=== PATIENT | female | born 1955 | race Caucasian/White ===

== ENCOUNTER 2020-12-20 17:49 | Inpatient (IN) ==
--- NOTE | 2020-12-20 19:55 | Emergency Department Note ---
Impression & Plan Breath shortness, CHF (congestive heart failure), Pleural effusion ED Provider Note NAME: EDUAR BARNES AGE: 65 SEX: F : 1955 ARRIVES VIA: Walk-In INFORMANT: Patient ED PROVIDER(S): Zackary Welch DO CHIEF COMPLAINT: Shortness of breath HPI: Patient is a 65-year-old female status post CABG and aortic valve replacement which was performed on 11/29/2020 at [facility]. Patient was discharged on the . She notes her chest pain has been improving gradually. She is still sore. She admits to shortness of breath which has been getting significantly worse over the past 48 hours. She was seen by her PCP and referred over. Prior to the surgery she had severe aortic stenosis with multivessel CAD, mild LVH, hypertension, lipidemia, type 2 diabetes on insulin and moderate mitral regurg as well as depression hypothyroidism and GERD. Shortness of breath is worsened with up and moving around. It does improve with rest. ROS: See above HPI for pertinent positives & negatives. A total of 10 systems reviewed and were otherwise negative. PAST MEDICAL HISTORY:See Below PAST SURGICAL HISTORY:See Below FAMILY HISTORY:See Below SOCIAL HISTORY:See Below HOME MEDICATIONS:See Below ALLERGIES:See Below VITALS:See Below PHYSICAL EXAMINATION: GENERAL: Sitting up in bed, alert, chronically ill-appearing, dyspneic with conversation EYE EXAM: normal conjunctiva. OROPHARYNX: no exudate, no erythema, lips, buccal mucosa, and tongue normal and mucous membranes are moist NECK: supple, no nuchal rigidity, no adenopathy, non-tender LUNGS: Diminished at the bases. Normal chest wall mechanics HEART: S1 normal and S2 normal ABDOMEN: abdomen soft, non-tender, normo-active bowel sounds, no masses, no rebound or guarding. BACK: Back is symmetrical on inspection and there is no deformity, no midline tenderness, no CVA tenderness. SKIN: no rashes and no bruising UPPER EXTREMITIES: upper extremities are grossly normal. LOWER EXTREMITIES: No pitting edema. NEURO EXAM: Normal sensorium, cranial nerves II-XII grossly intact, normal speech, no gross weakness of arms, no gross weakness of legs. MEDICAL DECISION MAKING: Patient is a 65-year-old female who presents the ER status post aortic valve replacement, CABG x3, ASD closure who presents the ER for shortness of breath for the past 48 hours. IV was established blood work was obtained. Labs show no significant leukocytosis or and mild anemia 10.3. The significant from previous labs at case here which were in the eights. BMP with LFTs bilirubin was unremarkable. Glucose slightly elevated. Lipase was normal. Covid was negative. CT of the chest shows bilateral pleural effusions. Case was discussed with Dr. Osorio from cardiology who agrees with admission and likely diuresis. Discussed with the hospitalist for further evaluation. Patient was g iven a dose of Lasix while in the ER. She was updated bedside. Discussed with the hospitalist admitted for further work-up. Triage Nursing notes reviewed. Limited review of prior medical records performed Vital Signs: reviewed and remarkable for hypertension Differential diagnosis: Differential diagnoses includes but is not limited to pneumonia, bronchitis, COPD/Asthma exacerbation, pneumothorax, pulmonary embolism, congestive heart failure, acute coronary syndrome ER treatment provided: See below Diagnostics interpreted by me: ECG: Sinus rhythm at 86 T wave version in the inferior leads T wave inversion in lateral leads ST depressions in the high lateral leads QTC 445 Cardiac Monitoring: An order was placed for continuous cardiac monitoring. The monitor shows a rate of 80 with sinus rhythm. Laboratory studies: As stated above and show below. Imaging studies: CT angio of the chest shows bilateral pleural effusions Consultation(s): Discussed with Dr. Ozzie Funk from cardiology and agrees with admission and diuresis Discussed with Dr. Srini Moseley for further evaluation Procedures: none Critical Care: None Past Med/Surg History Medical History Abdominal aortic aneurysm Acid reflux Acne Anemia CAD (coronary artery disease) (11/29/20) Depression Fatty liver GERD without esophagitis Heart murmur Hypercholesterolemia Hypertension Hypothyroidism (acquired) Mitral valve annular calcification Moderate mitral regurgitation Severe calcific aortic valve stenosis Type 2 diabetes mellitus Vitamin deficiency Surgical History Aortic valve replaced (11/29/20) Endometriosis H/O tubal ligation S/P CABG x 3 Status post device closure of ASD (11/29/20) Status post hernia repair Family History Father Stomach cancer Daughter Diabetes Heart disease Hypertension Mother Diabetes Sister No problems noted. Son Heart disease Hypertension Grandfather Myocardial infarction Denies family history of Ovarian cancer Prostate cancer Breast cancer Colorectal cancer Social History Smoking Status: Never smoker Second Hand Exposure: No; Hx Alcohol Use: No Hx Substance Use: No Preferred Language: Slovenian Hearing Ability: Normal Gas Cutter Required: No Beliefs That Will Affect Care: None marital status: Current Living Situation: Spouse and Family current occupational status: unemployed current occupation: homemaker How many Children do You have: 5 Feels Safe at Home: Yes Childhood Exposure to Second-Hand Smoke: Yes caffeine: No during the past year weight has: remained stable Dental Care, Regularly: No Physical Activity Frequency: Does not Exercise Seatbelt Use: sometimes Sunscreen Use: Yes (sometimes) Assistive Devices: None Allergies Allergies Allergy/AdvReac Type Severity Reaction Status Date / Time Tetanus Vaccines and Toxoid Allergy Mild ARM Verified 12/20/20 10:21 SWELLING-HOT TO TOUCH Home Meds Home Medications Medication Instructions Recorded Confirmed venlafaxine 150 mg 150 mg PO DAILY 06/02/20 12/20/20 capsule,extended release 24 hr insulin glargine 100 unit/mL (3 16 unit SUBCUT DAILY 11/03/20 12/20/20 mL) subcutaneous pen (Basaglar KwguillermoPen U-100 Insulin) metformin 500 mg tablet 500 mg PO DAILY 11/03/20 12/20/20 venlafaxine 37.5 mg DAILY 11/03/20 12/20/20 famotidine 20 mg tablet 20 mg PO DAILY 12/20/20 12/20/20 furosemide 40 mg tablet 40 mg PO DAILY 12/20/20 12/20/20 potassium chloride 10 mEq 10 meq PO BID 12/20/20 12/20/20 tablet,extended release Previous Rx's Medication Instructions Recorded pen needle, diabetic 32 gauge x #100 ea 06/09/2032" (BD Ultra-Fine Ruth Pen Needle) aspirin 81 mg tablet,delayed 81 mg PO DAILY #90 tab 09/13/20 release levothyroxine 25 mcg tablet 25 mcg PO DAILY #30 tab 09/16/20 atorvastatin 20 mg tablet 20 mg PO QPM #90 tab 12/09/20 cephalexin 500 mg capsule 500 mg PO BID 5 Days #10 cap 12/20/20 Results & Data (ED) Vital Signs Vital Signs - 24 hr 12/20/20 17:51 12/20/20 19:15 12/20/20 19:20 Temperature 36.9 C Temperature Source Temporal Artery Scan Pulse Rate 90 85 Pulse Rate [Apical] Respiratory Rate 20 24 Respiratory Effort / Characteristics Non-Labored Spontaneous Respiratory Depth Normal Blood Pressure 145/64 H Blood Pressure [Left Arm] Blood Pressure Mean 91 Blood Pressure Mean [Left Arm] Blood Pressure Position Sitting Pulse Oximetry 92 92 90 Oxygen Delivery Method Room Air Room Air Room Air Oxygen Flow Rate Sepsis Recent Fever Within 48 Hours No Sepsis New/Unexplained Change in Mental Status N/A Sepsis Action Taken by Nursing No Action Required 12/20/20 19:21 12/20/20 20:00 12/20/20 20:30 Temperature Temperature Source Pulse Rate 84 81 Pulse Rate [Apical] 83 Respiratory Rate 24 24 Respiratory Effort / Characteristics Respiratory Depth Blood Pressure 144/84 H 136/81 Blood Pressure [Left Arm] 146/78 H Blood Pressure Mean 104 99 Blood Pressure Mean [Left Arm] 100 Blood Pressure Position Pulse Oximetry 90 98 98 Oxygen Delivery Method Room Air Nasal Cannula Oxygen Flow Rate 2 2 Sepsis Recent Fever Within 48 Hours Sepsis New/Unexplained Change in Mental Status Sepsis Action Taken by Nursing 12/20/20 21:00 Temperature Temperature Source Pulse Rate 82 Pulse Rate [Apical] Respiratory Rate 24 Respiratory Effort / Characteristics Respiratory Depth Blood Pressure 120/67 Blood Pressure [Left Arm] Blood Pressure Mean 84 Blood Pressure Mean [Left Arm] Blood Pressure Position Pulse Oximetry 97 Oxygen Delivery Method Nasal Cannula Oxygen Flow Rate 2 Sepsis Recent Fever Within 48 Hours Sepsis New/Unexplained Change in Mental Status Sepsis Action Taken by Nursing Laboratory Data Result diagrams: 12/20/20 19:30 12/20/20 21:05 Lab Results 12/20/20 12/20/20 12/20/20 Range/Units 19:30 19:30 19:30 WBC 6.30 (4.8-10.8) K/uL RBC 3.60 L (4.2-5.4) M/uL Hgb 10.3 L (12.0-16.0) g/dL Hct 33.2 L (37-47) % MCV 92.2 (80-100) fL MCH 28.6 (25-34) pg MCHC 31.0 L (32-36) g/dL RDW Std Deviation 50.8 H (36.4-46.3) fL RDW Coeff of [place] 14.9 H (11.5-14.5) % Plt Count 248 (130-400) K/uL MPV 10.2 (7.4-10.4) fL Immature Gran % (Auto) 0.2 % Neut % (Auto) 66.9 % Lymph % (Auto) 16.7 % [place] % (Auto) 12.2 % Eos % (Auto) 3.2 % Baso % (Auto) 0.8 % Neut # (Auto) 4.22 (1.4-6.5) K/uL Lymph # (Auto) 1.05 L (1.2-3.4) K/uL [place] # (Auto) 0.77 H (0.11-0.59) K/uL Eos # (Auto) 0.20 (0-0.5) K/uL Baso # (Auto) 0.05 (0-0.2) K/uL Immature Gran # (Auto) 0.01 (0.00-0.02) K/uL APTT 25.2 (21.0-31.0) Seconds PTT Ratio 1.0 Sodium 139 (136-145) mmol/L Potassium (3.5-5.1) mmol/L Chloride 105 (98-107) mmol/L Carbon Dioxide 26 (21-32) mmol/L Anion Gap 8.0 (3-11) BUN 13 (7-18) mg/dl Creatinine 0.65 (0.6-1.2) mg/dl Est Cr Clr Drug Dosing 79.5 ml/min Est GFR ( Amer) 108.0 ml/min Est GFR (Non-Af Amer) 93.2 ml/min BUN/Creatinine Ratio 20.0 (10-20) Glucose 166 H (70-99) mg/dl Calcium 8.7 (8.5-10.1) mg/dl Total Bilirubin 0.5 (0.2-1) mg/dl AST (15-37) U/L ALT 19 (12-78) U/L Alkaline Phosphatase 186 H (45-117) U/L Troponin I < 0.015 (0-0.045) ng/ml Total Protein 7.8 (6.4-8.2) gm/dl Albumin 2.9 L (3.4-5.0) gm/dl Globulin 4.9 H (2.5-4.0) gm/dl Albumin/Globulin Ratio 0.6 L (0.9-2) Lipase 111 (73-393) U/L COVID-19 Eval Order SARS-CoV-2 (PCR) (Negative) 12/20/20 12/20/20 12/20/20 Range/Units 19:38 19:38 21:05 WBC (4.8-10.8) K/uL RBC (4.2-5.4) M/uL Hgb (12.0-16.0) g/dL Hct (37-47) % MCV (80-100) fL MCH (25-34) pg MCHC (32-36) g/dL RDW Std Deviation (36.4-46.3) fL RDW Coeff of [place] (11.5-14.5) % Plt Count (130-400) K/uL MPV (7.4-10.4) fL Immature Gran % (Auto) % Neut % (Auto) % Lymph % (Auto) % [place] % (Auto) % Eos % (Auto) % Baso % (Auto) % Neut # (Auto) (1.4-6.5) K/uL Lymph # (Auto) (1.2-3.4) K/uL [place] # (Auto) (0.11-0.59) K/uL Eos # (Auto) (0-0.5) K/uL Baso # (Auto) (0-0.2) K/uL Immature Gran # (Auto) (0.00-0.02) K/uL APTT (21.0-31.0) Seconds PTT Ratio Sodium (136-145) mmol/L Potassium 4.0 (3.5-5.1) mmol/L Chloride (98-107) mmol/L Carbon Dioxide (21-32) mmol/L Anion Gap (3-11) BUN (7-18) mg/dl Creatinine (0.6-1.2) mg/dl Est Cr Clr Drug Dosing ml/min Est GFR ( Amer) ml/min Est GFR (Non-Af Amer) ml/min BUN/Creatinine Ratio (10-20) Glucose (70-99) mg/dl Calcium (8.5-10.1) mg/dl Total Bilirubin (0.2-1) mg/dl AST (15-37) U/L ALT (12-78) U/L Alkaline Phosphatase (45-117) U/L Troponin I (0-0.045) ng/ml Total Protein (6.4-8.2) gm/dl Albumin (3.4-5.0) gm/dl Globulin (2.5-4.0) gm/dl Albumin/Globulin Ratio (0.9-2) Lipase (73-393) U/L COVID-19 Eval Order Covid19 at [facility] SARS-CoV-2 (PCR) NEGATIVE (Negative) Administered Medications Discontinued Medications Ioversol (Optiray 320 125ml) 118 ml IV ONCE ONE Stop: 12/20/20 21:05 Last Admin: 12/20/20 21:04 Dose: 118 ml Documented by: [id number] Imaging Data Radiologist's Impression: Chest X-Ray 12/20/20 19:21 XR chest 1V portable CLINICAL HISTORY: Chest Pain COMPARISON STUDY: No previous studies for comparison. FINDINGS: There is no pneumothorax. There are small bilateral pleural effusions. Cardiomegaly is noted. There is no evidence for overt pulmonary edema. Possible left basilar opacity is noted. There are median sternotomy wires and mediastinal surgical clips. IMPRESSION: 1. Cardiomegaly. No evidence for overt pulmonary edema. 2. Small bilateral pleural effusions with possible left basilar opacity. ACT 112: Negative or not required by law. Electronically signed by: Kali Wang M.D. 12/20/2020 8:20 PM Discharge Plan Visit Data Chief Complaint: Cardiac Assessment Stated Complaint: CARDIAC ASSESSMENT ED Provider: Zackary Welch Discharge Problem: Breath shortness, CHF (congestive heart failure), Pleural effusion Forms Stand Alone Forms: My [facility] [employer] Prescriptions Prescriptions: No Action (DME) pen needle, diabetic [BD Ultra-Fine Ruth Pen Needle] 32 gauge x 5/32" needle See Rx Instructions .ROUTE .MEDSUPPLY Qty: 100 RF: 3 aspirin 81 mg tablet,delayed release (DR/EC) 81 mg PO DAILY Qty: 90 RF: 2 levothyroxine 25 mcg tablet 25 mcg PO DAILY Qty: 30 RF: 2 atorvastatin 20 mg tablet 20 mg PO QPM Qty: 90 RF: 2 venlafaxine 150 mg capsule,extended release 24hr 150 mg PO DAILY RF: 0 famotidine 20 mg tablet 20 mg PO DAILY RF: 0 furosemide 40 mg tablet 40 mg PO DAILY RF: 0 potassium chloride 10 mEq tablet extended release 10 meq PO BID RF: 0 cephalexin 500 mg capsule 500 mg PO BID 5 Days Qty: 10 RF: 0 metformin 500 mg Tablet 500 mg PO DAILY RF: 0 Basaglar KwikPen U-100 Insulin 100 unit/mL (3 mL) Insulin Pen 16 unit SUBCUT DAILY RF: 0 venlafaxine 37.5 mg 37.5 mg DAILY RF: 0 Referrals Referrals: Cirilo Page CRNP [Primary Care Provider] - Discharge Problem: CHF (congestive heart failure) Qualifiers: Heart failure type: unspecified Heart failure chronicity: unspecified Qualified Code(s): I50.9 - Heart failure, unspecified
[2020-12-20 20:10] LABS: Partial Thromboplastin Time 25.2 Seconds (21.0-31.0)
--- NOTE | 2020-12-20 20:22 | XRay Report ---
XR chest 1V portable CLINICAL HISTORY: Chest Pain COMPARISON STUDY: No previous studies for comparison. FINDINGS: There is no pneumothorax. There are small bilateral pleural effusions. Cardiomegaly is note d. There is no evidence for overt pulmonary edema. Possible left basilar opacity is noted. There are median sternotomy wires and mediastinal surgical clips. IMPRESSION: 1. Cardiomegaly. No evidence for overt pulmonary edema. 2. Small bilateral pleural effusions with possible left basilar opacity. ACT 112: Negative or not required by law. Electronically signed by: Kali Wang M.D. 12/20/2020 8:20 PM
[2020-12-20 20:26] LABS: Basophils # (auto) 0.05 K/uL (0-0.2); Basophils % (auto) 0.8 %; Eosinophils % (auto) 3.2 %; Hematocrit (blood only) 33.2 % (37-47); Hemoglobin 10.3 g/dL (12.0-16.0); Immature Granulocytes # (auto) 0.01 K/uL (0.00-0.02); Immature Granulocytes % (auto) 0.2 %; Lymphocytes # (auto) 1.05 K/uL (1.2-3.4); Lymphocytes % (auto) 16.7 %; Mean Corpuscular Hemoglobin 28.6 pg (25-34); Mean Corpuscular Volume 92.2 fL (80-100); Mean Platelet Volume 10.2 fL (7.4-10.4); Monocytes # (auto) 0.77 K/uL (0.11-0.59); Monocytes % (auto) 12.2 %; Neutrophils # (auto) 4.22 K/uL (1.4-6.5); Neutrophils % (auto) 66.9 %; Platelet Count 248 K/uL (130-400); RDW Coefficient of Variation 14.9 % (11.5-14.5); RDW Standard Deviation 50.8 fL (36.4-46.3)
[2020-12-20 20:55] LABS: Alanine Aminotransferase 19 U/L (12-78); Albumin Globulin Ratio 0.6 (0.9-2); Albumin Level 2.9 gm/dl (3.4-5.0); Alkaline Phosphatase 186 U/L (45-117); Bilirubin,Total 0.5 mg/dl (0.2-1); Blood Urea Nitrogen 13 mg/dl (7-18); Calcium 8.7 mg/dl (8.5-10.1); Carbon Dioxide 26 mmol/L (21-32); Chloride 105 mmol/L (98-107); Creatinine Clr Calc Pharmacy 79.5 ml/min; Est GFR (Non-African American) 93.2 ml/min; Globulin 4.9 gm/dl (2.5-4.0); Glucose 166 mg/dl (70-99); Lipase 111 U/L (73-393); Sodium 139 mmol/L (136-145); Total Protein 7.8 gm/dl (6.4-8.2); Troponin I < 0.015 ng/ml (0-0.045)
[2020-12-20] MEDS ORDERED: OPTIRAY 320 125ml IV ONE (21:04)
[2020-12-20] MEDS ORDERED: FUROSEMIDE 40 MG/4 ML VIAL IV STA (22:16)
--- NOTE | 2020-12-20 22:32 | History & Physical Report ---
Date of Service December 20, 2020 Assessment & Plan (1) CHF (congestive heart failure): Plan: Patient is a pleasant 65 year old female with PMHx CHF, GERD, CAD, HLD, Asthma, Depression, Hypertension, Hypothyroidism, DM2, that presents with chief complaint of shortness of breath. Patient was seen earlier in the day by her PCP who had recommended patient go to the ED for treatment of CHF exacerbation noted on CXR, physical exam, and elevated BNP. Patient's history of complicated by recent CABG x3 (MOREL-LAD, Ao-PDA, Ao-OM with reversed saphenous vein), Aortic valve replacement with 21mm Inspiris bioprosthetic valve and closure of PFO type ASD on 11/29/20. CHF exacerbation -Last echo on 11/29/20 with EF 60-64%, HFpEF -Outpatient BNP elevated at 1580 -CXR with b/l pleural effusions, CTA showing pulmonary edema without clot or concern for PE -Of note a nondisplaced fx of the 1st rib on the L -Given 40mg IV lasix in ED -Will continue IV lasix 40mg QD -Daily weights -I/O's -Low Na diet, 2000ml fluid restriction -Repeat Echo in AM Cellulitis of Incision site L leg -Erythema and purulent drainage of incision site on the L leg medial to the patella -Started on Keflex outpatient, will transition to CTX IV as patient received initial incision in hospital -Will wound culture for MRSA - if positive will need to increase coverage CAD -Continue home ASA -Continue home Lipitor -S/P CABG x3 11/29/20 at [facility] GERD -Continue home Pepcid Hypothyroidism -Continue home Levothyroxine Depression -Continue home Venlafaxine DM2 -SSI and basal bolus Dispo: Med/Surg telemetry for monitoring and diuresis FEN: HH, Low salt diet, 2000ml fluid restriction DVT: SCDs Code: DNR/DNI History of Present Illness Chief Complaint: Shortness of breath Primary Care Provider: PRABHA Ramirez Patient is a pleasant 65 year old female with PMHx CHF, GERD, CAD, HLD, Asthma, Depression, Hypertension, Hypothyroidism, DM2, that presents with chief complaint of shortness of breath. Patient was seen earlier in the day by her PCP who had recommended patient go to the ED for treatment of CHF exacerbation noted on CXR, physical exam, and elevated BNP. Patient's history of complicated by recent CABG x3 (MOREL-LAD, Ao-PDA, Ao-OM with reversed saphenous vein), Aortic valve replacement with 21mm Inspiris bioprosthetic valve and closure of PFO type ASD on 11/29/20. Patient notes that since her discharge after her CABG she has felt less short of breath since prior, though still notes significant symptoms of dyspnea on exertion. She had seen her PCP earlier this morning for a regular hospital follow up and had crackles noted on her lung exam prompting a further work up for patient's suspected CHF exacerbation. She notes that she has been taking her lasix as prescribed and that she has had no changes in her diet. She does not necessarily track her sodium intake, but does not feel it is too much. She does note that she feels more SOB when laying flat. She also notes that she was started on Keflex for the redness on her L leg where the saphenous vein was harvested. She notes that at rest she feels fine and not SOB. She denies any chest pain, chest pressure, abdominal pain, nausea, vomiting, diarrhea. She has not had her COVID-19 vaccination. Med Hx: CHF, GERD, CAD, HLD, Asthma, Depression, Hypertension, Hypothyroidism, DM2 Surg Hx: CABG x3 (MOREL-LAD, Ao-PDA, Ao-OM with reversed saphenous vein), Aortic valve replacement with 21mm Inspiris bioprosthetic valve, closure of PFO type ASD Soc Hx: No tobacco, alcohol, illicit drug use Allergies Allergy/AdvReac Type Severity Reaction Status Date / Time Tetanus Vaccines and Toxoid Allergy Mild ARM Verified 12/20/20 10:21 SWELLING-HOT TO TOUCH Home Medications Medication Instructions Recorded Confirmed Type venlafaxine 150 mg 150 mg PO DAILY 06/02/20 12/20/20 History capsule,extended release 24 hr pen needle, diabetic 32 gauge x #100 ea 06/09/20 12/20/20 Rx " (BD Ultra-Fine Ruth Pen Needle) aspirin 81 mg tablet,delayed 81 mg PO DAILY #90 tab 09/13/20 12/20/20 Rx release levothyroxine 25 mcg tablet 25 mcg PO DAILY #30 tab 09/16/20 12/20/20 Rx insulin glargine 100 unit/mL (3 16 unit SUBCUT DAILY 11/03/20 12/20/20 History mL) subcutaneous pen (Basaglar AlysonPen U-100 Insulin) metformin 500 mg tablet 500 mg PO DAILY 11/03/20 12/20/20 History venlafaxine 37.5 mg DAILY 11/03/20 12/20/20 History atorvastatin 20 mg tablet 20 mg PO QPM #90 tab 12/09/20 12/20/20 Rx cephalexin 500 mg capsule 500 mg PO BID 5 Days #10 cap 12/20/20 12/20/20 Rx famotidine 20 mg tablet 20 mg PO DAILY 12/20/20 12/20/20 History furosemide 40 mg tablet 40 mg PO DAILY 12/20/20 12/20/20 History potassium chloride 10 mEq 10 meq PO BID 12/20/20 12/20/20 History tablet,extended release Past Med/Surg History Medical History Abdominal aortic aneurysm Acid reflux Acne Anemia CAD (coronary artery disease) (11/29/20) Depression Fatty liver GERD without esophagitis Heart murmur Hypercholesterolemia Hypertension Hypothyroidism (acquired) Mitral valve annular calcification Moderate mitral regurgitation Severe calcific aortic valve stenosis Type 2 diabetes mellitus Vitamin deficiency Surgical History Aortic valve replaced (11/29/20) Endometriosis H/O tubal ligation S/P CABG x 3 Status post device closure of ASD (11/29/20) Status post hernia repair Family History Father Stomach cancer Daughter Diabetes Heart disease Hypertension Mother Diabetes Sister No problems noted. Son Heart disease Hypertension Grandfather Myocardial infarction Denies family history of Ovarian cancer Prostate cancer Breast cancer Colorectal cancer Social History Smoking Status: Never smoker Second Hand Exposure: No; Do You Dip or Chew Tobacco: No; Hx Alcohol Use: No Hx Substance Use: No Preferred Language: Greenlandic Communication Ability: Effective Hearing Ability: Normal Label Remover Required: No Beliefs That Will Affect Care: None marital status: Current Living Situation: Spouse current occupational status: unemployed current occupation: homemaker How many Children do You have: 5 Feels Safe at Home: Yes Childhood Exposure to Second-Hand Smoke: Yes caffeine: No during the past year weight has: remained stable Dental Care, Regularly: No Physical Activity Frequency: Does not Exercise Seatbelt Use: sometimes Sunscreen Use: Yes (sometimes) Assistive Devices: Oxygen - Continuous Review of Systems Review of Systems: ROS as noted in history Physical Exam Constitutional: well developed and well nourished; not in distress Eyes: PERRL, conjunctivae normal, anicteric sclerae ENMT: external ear and nose normal, oropharynx normal Neck: trachea midline, no thyromegaly Respiratory: normal respiratory effort and able to speak in complete sentences; no respiratory distress, no labored breathing and no audible wheezes Auscultation: + diminished lung sounds and + crackles ( bilateral lower lobes) Cardiovascular: Rate/Rhythm: regular rate and regular rhythm Heart Sounds: normal S1 and normal S2; no murmur Extremities: + edema (+1 edema to the mid rooney ) Gastrointestinal (Abdomen): normal bowel sounds, soft, nontender, no hepatosplenomegaly Musculoskeletal: no cyanosis or clubbing, extremities motor strength 5/5 Skin: no rashes, warm and dry + incision ( vertical chest -clean dry intact. LLE with surrounding erythema) Neurologic: PERRL, EOMI, accommodation nl, no face palsy, no dysarthria Psychiatric: A+Ox3, euthymic affect Apperance: appeared stated age Results & Data Results & Data ([facility] [place]) Vital Signs (Past 12 Hours) Vital Signs Temp Pulse Pulse Resp BP BP Pulse Ox 12/20/20 21:00 82 24 120/67 97 12/20/20 20:30 81 24 136/81 98 12/20/20 20:00 84 24 144/84 H 98 12/20/20 19:21 83 146/78 H 90 12/20/20 19:20 90 12/20/20 19:15 85 24 92 12/20/20 17:51 36.9 C 90 20 145/64 H 92 Code Status & VTE Plan Code Status DNR/DNI Supervising Physician Co-Signing Physician Notes Attending addendum: I have physically seen this patient, have supervised the medical residents activities, and agree with the H&P unless as otherwise noted. Assessment and Plan: CHF exacerbation/CAD/hypertension/recent CABG x3 and bioprosthetic AVR- The patient will be admitted to telemetry for serial cardiac enzymes, serial EKG's, cardiac rhythm monitoring and a 2-D echocardiogram with Dopplers. Given Lasix 40 mg IV in ED Lasix 40 mg IV every morning Follow serial BMP and magnesium levels Continue aspirin Noted by cardiothoracic at [place] of admission Cellulitis of left lower extremity incision site Stop Keflex Placed on ceftriaxone 1 g IV and vancomycin IV Remaining orders and notations as noted Resident Activity Tracking Resident Involvement: Resident Care Provided Care Provided: Adult Hospital Medicine (1) CHF (congestive heart failure) Heart failure chronicity: unspecified Heart failure type: unspecified Qualified Code(s): I50.9 - Heart failure, unspecified
[2020-12-21] MEDS ORDERED: CARBOHYDRATES FOR HYPOGLYCEMIA PO PRN (00:21)
[2020-12-21] MEDS ORDERED: GLUCOSE 40% GEL 15 GM TUBE PO PRN (00:21)
[2020-12-21] MEDS ORDERED: GLUCOSE 10 TABS/TUBE PO PRN (00:21)
[2020-12-21] MEDS ORDERED: DEXTROSE 50% 50 ML SYRINGE IV PRN (00:21)
[2020-12-21] MEDS ORDERED: GLUCAGON FOR INJ 1 MG VIAL SQ PRN (00:21)
[2020-12-21] MEDS ORDERED: ONDANSETRON INJ 2 MG/ML 2 ML VIAL IV PRN (00:21)
[2020-12-21] MEDS: cefTRIAXone SODIUM 2,000 MG in DEXTROSE 5% 50 ML IV SCH (00:43)
[2020-12-21 07:41] LABS: Basophils # (auto) 0.04 K/uL (0-0.2); Basophils % (auto) 0.7 %; Eosinophils # (auto) 0.26 K/uL (0-0.5); Eosinophils % (auto) 4.6 %; Hematocrit (blood only) 29.6 % (37-47); Hemoglobin 9.1 g/dL (12.0-16.0); Lymphocytes % (auto) 15.8 %; Mean Corpuscular Hemoglobin 27.7 pg (25-34); Mean Corpuscular Hgb Conc 30.7 g/dL (32-36); Mean Corpuscular Volume 90.2 fL (80-100); Mean Platelet Volume 9.1 fL (7.4-10.4); Monocytes # (auto) 0.81 K/uL (0.11-0.59); Monocytes % (auto) 14.2 %; Neutrophils # (auto) 3.68 K/uL (1.4-6.5); Neutrophils % (auto) 64.7 %; Platelet Count 197 K/uL (130-400); RDW Coefficient of Variation 15.1 % (11.5-14.5); RDW Standard Deviation 49.4 fL (36.4-46.3); Red Blood Count 3.28 M/uL (4.2-5.4); White Blood Count 5.69 K/uL (4.8-10.8)
[2020-12-21] MEDS: INSULIN ASPART 100 UNITS/ML 3 ML PEN SC SCH ×4 (08:11→21:00)
[2020-12-21 08:13] LABS: Albumin Level 2.7 gm/dl (3.4-5.0); Calcium 8.1 mg/dl (8.5-10.1); Creatinine Clr Calc Pharmacy 88.1 ml/min; Est GFR (African American) 112.1 ml/min; Est GFR (Non-African American) 96.7 ml/min; Magnesium 1.3 mg/dl (1.8-2.4); Potassium 3.4 mmol/L (3.5-5.1)
[2020-12-21] MEDS ORDERED: POTASSIUM CHLORIDE CRTAB 20 MEQ TABCR PO STA (08:20)
[2020-12-21 08:25] LABS: Albumin Globulin Ratio 0.6 (0.9-2); Bilirubin,Total 0.4 mg/dl (0.2-1); Globulin 4.2 gm/dl (2.5-4.0); Phosphorus 3.8 mg/dl (2.5-4.9); Thyroid Stimulating Hormone 5.18 uIu/ml (0.300-4.500); Total Protein 6.9 gm/dl (6.4-8.2)
[2020-12-21] MEDS: INSULIN GLARGINE SOLOSTAR 100 UNITS/ML 3 ML PEN SC SCH (08:37)
[2020-12-21] MEDS: FUROSEMIDE 40 MG in SYRINGE 0 ML IV SCH (08:38)
[2020-12-21] MEDS: FAMOTIDINE 20 MG TAB PO SCH (08:39)
[2020-12-21] MEDS: LEVOTHYROXINE SODIUM 25 MCG TABLET PO SCH (08:39)
[2020-12-21] MEDS: ASPIRIN 81 MG ECTAB PO SCH (08:39)
[2020-12-21 08:40] LABS: T4 Free Thyroxine 1.13 ng/dl (0.8-1.6)
[2020-12-21] MEDS: VENLAFAXINE HCL XR 37.5 MG CAPXR PO SCH (08:40)
[2020-12-21] MEDS: VENLAFAXINE HCL XR 150 MG CAPXR PO SCH (08:40)
[2020-12-21] MEDS: MAGNESIUM SULFATE / D5W 1 GM/100 ML BAG IV SCH ×4 (08:52→17:52)
--- NOTE | 2020-12-21 08:58 | XRay Report ---
XR chest 1V portable HISTORY: Shortness of breath. COMPARISON: Chest 12/20/2020. FINDINGS: No pneumothorax. There are poststernotomy changes. The heart remains mildly enlarged. There is progressive perihilar interstitial/vascular thickening consistent with mild pulmonary edema. Smal l bilateral pleural effusions have also progressed. IMPRESSION: Interval progression of the mild interstitial pulmonary edema and small bilateral pleural effusions. ACT 112: Negative or not required by law. Electronically signed by: Jaycob Altman M.D. 12/21/2020 8:56 AM
--- NOTE | 2020-12-21 09:05 | CT Scan Report ---
CHEST CTA for PULMONARY ARTERIES CT DOSE: 460.63 mGy.cm HISTORY: Shortness of breath. TECHNIQUE: Multiaxial CT images of the chest were performed following the intravenous administration of contrast to evaluate the pulmonary arteries. Maximal intensity projection images were also obtaine d. A dose lowering technique was utilized adhering to the principles of ALARA. COMPARISON STUDY: None. FINDINGS: Limited views of the upper abdomen demonstrate a subtle nodular contour to the liver consis tent with cirrhosis and a normal spleen. The heart is mildly enlarged. There are poststernotomy woods es. Moderate bilateral pleural effusions. A few prominent mediastinal lymph nodes measuring up to 9 m m in short axis diameter. No hilar lymphadenopathy. Normal esophagus. Left lower lobe consolidation i s consistent with compressive atelectasis from the left pleural effusion. There is also consolidation within the right lower lobe posteriorly also representing compressive atelectasis. A pneumonia could also have a similar appearance but is considered less likely. Parasternal edema is likely due to the recent postoperative change. No significant pericardial effusion. Normal caliber thoracic aorta with no evidence for dissection. The majority of the segmental and subsegmental pulmonary arteries are no ndiagnostic due to the respiratory motion artifact. Otherwise, no filling defects seen within the pul monary arteries to suggest a pulmonary embolus. Interlobular septal thickening with patchy groundglas s airspace opacities. This is consistent with pulmonary edema. Linear density within the right upper lobe likely represent subsegmental atelectasis or scarring. The central airways are patent. No pneumo thorax. Nondisplaced acute left anterior first rib fracture. IMPRESSION: 1. No evidence for pulmonary embolus. 2. Pulmonary edema with moderate bilateral pleural effusions. These results in compressive atelectasi s of the adjacent lower lobes. 3. Evidence for recent poststernotomy changes. 4. Nondisplaced acute left anterior first rib fracture. No pneumothorax. ACT 112: Negative or not required by law. Electronically signed by: Jaycob Altman M.D. 12/21/2020 9:03 AM
[2020-12-21] MEDS: POTASSIUM CHLORIDE 10 MEQ TABCR PO SCH ×2 (11:39→21:00)
--- NOTE | 2020-12-21 12:44 | Hospitalist Progress Note ---
Date of Service December 21, 2020 Assessment & Plan (1) CHF (congestive heart failure): Plan: Patient is a pleasant 65 year old female with PMHx CHF, GERD, CAD, HLD, Asthma, Depression, Hypertension, Hypothyroidism, DM2, that presents with chief complaint of shortness of breath. Patient was seen earlier in the day by her PCP who had recommended patient go to the ED for treatment of CHF exacerbation noted on CXR, physical exam, and elevated BNP. Patient's history of complicated by recent CABG x3 (MOREL-LAD, Ao-PDA, Ao-OM with reversed saphenous vein), Aortic valve replacement with 21mm Inspiris bioprosthetic valve and closure of PFO type ASD on 11/29/20. CHF exacerbation (preserved ejection fraction) -Echo today is comparable with echo on 11/29/20 with EF 60-64%, HFpEF -Outpatient BNP elevated at 1580 -CXR with b/l pleural effusions, CTA showing pulmonary edema without clot or concern for PE -Will continue IV lasix 40mg QD -Given additional 40mg IV lasix this afternoon -Daily weights -I/O's, Loss of over 1.5 liters in 24 hours. -Low Na diet, 2000ml fluid restriction Cellulitis of Incision site L leg -Erythema and purulent drainage of incision site on the L leg medial to the patella -Started on Keflex outpatient, will transition to CTX IV as patient received initial incision in hospital -Culture came back as 2 separate gram negative organisms. CAD -Continue home ASA -Continue home Lipitor -S/P CABG x3 11/29/20 at [facility] Nondisplaced fx of the 1st rib on the L -Incidentally noted on CT -No treatment necessary at this time. GERD -Continue home Pepcid Hypothyroidism -Continue home Levothyroxine Depression -Continue home Venlafaxine DM2 -SSI and basal bolus Dispo: Med/Surg telemetry for monitoring and diuresis FEN: HH, Low salt diet, 2000ml fluid restriction DVT: SCDs Code: DNR/DNI Admission and Anticipated Discharge Date Admission Date: December 20, 2020 Supervising Physician Co-Signing Physician Notes I personally examined the patient and verified all butler points of history and exam, discussed case, and agree with decision making with Dr Moses. Feeling much better than whenever she came in, breathing not quite back to as good as it was in the last few weeks, but definitely better than before. Leg pain and redness much improved. Vitals noted, in general she is awake and alert pleasant no distress. HEENT normocephalic atraumatic mucous membranes moist. Lungs show bibasilar rales no rhonchi no wheezes. Left lower extremity shows a small approximately 1 to 1.5 cm scabbed area with very dull surrounding erythema no exudate no fluctuance minimally tendershe notes it is much improved from last night. Acute diastolic CHF/acute HFpEFprobably all contextual given her recent CABG and valve surgery, discussed sodium intake, continue to diurese, hopefully home in the next day or so with ongoing improvement. Wean oxygen as possible for her acute hypoxic respiratory failure. Left lower extremity cellulitisfortunately improving quite nicely. Cultures showing gram-negative rods, continue ceftriaxone. Otherwise as above. Subjective Patient was seen at bedside this morning. Patient reports that she is doing much better today. Patient reports that yesterday she was having shortness of breath. Ever since she started the diuretic she reports that she has been urinating more and as she was off fluid her breathing has significantly improved. She feels that her breathing is almost back to baseline as well as the swelling in her legs. When getting a history on her she reports that she has no past history of congestive heart failure. She is status post CABG and aortic valve replacement 3 weeks ago. She reports that this procedure had gone well. Ever since then she has noticed that she has been gradually getting more short of breath throughout this timeframe. She reports that it got to a point where she could no longer tolerate it and she had made a doctor's appointment and from her doctor had a told her to go to the ER after seeing an elevated BN P. She was given 40 mg IV of Lasix in the ER and she has been put on 40 mg IV daily. She has a reported -1.3 L loss of fluid over the past 24 hours. Patient has no other complaints at this time. Review of Systems Review of Systems: All systems reviewed & are unremarkable except as noted in HPI & below Physical Exam Constitutional: WD/WN, vitals as above Eyes: + anicteric sclerae Neck: trachea midline, no thyromegaly Respiratory: normal respiratory effort and + cough Auscultation: + rales (bibasilar rales on exhalation.) Cardiovascular: Rate/Rhythm: regular rate and regular rhythm Extremities: + edema (1+ pitting edema b/l. No JVD, hepatojugular reflux present.) Negative fluid wave. Gastrointestinal (Abdomen): normal bowel sounds, soft, nontender, no hepatosplenomegaly Musculoskeletal: no cyanosis or clubbing, extremities motor strength 5/5 Skin: There is a well-healing incision on the medial aspect of the left knee measuring approximately 2 and half centimeters with dried granulation tissue with a small border of erythema present. No hyperthermia appreciated. Psychiatric: A+Ox3, euthymic affect Results & Data Results & Data (MN) Vital Signs (Past 12 Hours) Vital Signs Temp Pulse Pulse Resp BP Pulse Ox 12/21/20 11:14 37.1 C 81 16 97/58 L 91 12/21/20 07:31 84 12/21/20 07:26 37.2 C 78 16 129/76 91 12/21/20 04:06 37.2 C 77 18 99/61 L 92 (1) CHF (congestive heart failure) Heart failure chronicity: unspecified Heart failure type: unspecified Qualified Code(s): I50.9 - Heart failure, unspecified
[2020-12-21] MEDS ORDERED: FUROSEMIDE 40 MG in SYRINGE 0 ML IV ONE (17:00)
--- NOTE | 2020-12-21 19:14 | Billing Data ---
Date of Service December 21, 2020 Coding Level of Care Code 99943 Subseq Hosp Care Lvl 3
--- NOTE | 2020-12-21 20:14 | Billing Data ---
Date of Service December 21, 2020 Coding Level of Care Code 92952 Initial Inpt Care Lvl 3
[2020-12-21] MEDS ORDERED: ATORVASTATIN 20 MG TAB PO SCH (21:00)
--- NOTE | 2020-12-21 23:24 | Electrocardiogram Report ---
Test Reason : Blood Pressure : / mmHG Vent. Rate : 086 BPM Atrial Rate : 086 BPM P-R Int : 122 ms QRS Dur : 078 ms QT Int : 372 ms P-R-T Axes : 008 019 197 degrees QTc Int : 445 ms Normal sinus rhythm Cannot rule out Inferior infarct , age undetermined Cannot rule out Anterior infarct , age undetermined T wave abnormality, consider inferior ischemia Abnormal ECG No previous ECGs available Confirmed by Felipe Sylvester ([id number]) on 12/21/2020 11:24:29 PM Referred By: REFERRED SELF Confirmed By:Felipe Sylvester
[2020-12-22] MEDS: cefTRIAXone SODIUM 2,000 MG in DEXTROSE 5% 50 ML IV SCH (01:00)
--- NOTE | 2020-12-22 05:31 | Electrocardiogram Report ---
Test Reason : Blood Pressure : / mmHG Vent. Rate : 081 BPM Atrial Rate : 081 BPM P-R Int : 128 ms QRS Dur : 090 ms QT Int : 402 ms P-R-T Axes : 007 018 195 degrees QTc Int : 466 ms Normal sinus rhythm Cannot rule out Inferior infarct (cited on or before 20-DEC-2020) T wave abnormality, consider inferior ischemia Abnormal ECG When compared with ECG of 20-DEC-2020 19:20, No significant change was found Confirmed by Felipe Sylvester ([id number]) on 12/22/2020 5:31:35 AM Referred By: REFERRED SELF Confirmed By:Felipe Sylvester
[2020-12-22 06:08] LABS: Basophils # (auto) 0.06 K/uL (0-0.2); Basophils % (auto) 1.4 %; Eosinophils # (auto) 0.36 K/uL (0-0.5); Eosinophils % (auto) 8.1 %; Hematocrit (blood only) 29.7 % (37-47); Lymphocytes # (auto) 0.81 K/uL (1.2-3.4); Lymphocytes % (auto) 18.2 %; Mean Corpuscular Hemoglobin 27.6 pg (25-34); Mean Corpuscular Hgb Conc 30.3 g/dL (32-36); Mean Corpuscular Volume 91.1 fL (80-100); Mean Platelet Volume 9.6 fL (7.4-10.4); Monocytes # (auto) 0.75 K/uL (0.11-0.59); Monocytes % (auto) 16.9 %; Neutrophils # (auto) 2.46 K/uL (1.4-6.5); Neutrophils % (auto) 55.4 %; Platelet Count 193 K/uL (130-400); RDW Coefficient of Variation 15.2 % (11.5-14.5); RDW Standard Deviation 50.7 fL (36.4-46.3); Red Blood Count 3.26 M/uL (4.2-5.4); White Blood Count 4.44 K/uL (4.8-10.8)
[2020-12-22 06:50] LABS: BUN Creatinine Ratio 23.5 (10-20); Creatinine Clr Calc Pharmacy 85.2 ml/min; Est GFR (African American) 110.9 ml/min; Est GFR (Non-African American) 95.7 ml/min; Magnesium 2.1 mg/dl (1.8-2.4); Potassium 3.6 mmol/L (3.5-5.1)
[2020-12-22] MEDS: INSULIN ASPART 100 UNITS/ML 3 ML PEN SC SCH ×2 (08:46→12:23)
[2020-12-22] MEDS: ASPIRIN 81 MG ECTAB PO SCH (08:46)
[2020-12-22] MEDS: INSULIN GLARGINE SOLOSTAR 100 UNITS/ML 3 ML PEN SC SCH (08:46)
[2020-12-22] MEDS: FAMOTIDINE 20 MG TAB PO SCH (08:47)
[2020-12-22] MEDS: LEVOTHYROXINE SODIUM 25 MCG TABLET PO SCH (08:47)
[2020-12-22] MEDS: POTASSIUM CHLORIDE 10 MEQ TABCR PO SCH (08:47)
[2020-12-22] MEDS: FUROSEMIDE 40 MG in SYRINGE 0 ML IV SCH (08:47)
[2020-12-22] MEDS: VENLAFAXINE HCL XR 150 MG CAPXR PO SCH (08:47)
[2020-12-22] MEDS: VENLAFAXINE HCL XR 37.5 MG CAPXR PO SCH (08:48)
[2020-12-22] MEDS ORDERED: POLYETHYLENE (MIRALAX) 17 GM PACK PO SCH (10:30)
--- NOTE | 2020-12-22 17:53 | Discharge Summary ---
Date of Service December 22, 2020 Admission HPI Per Admitting Provider Patient is a pleasant 65 year old female with PMHx CHF, GERD, CAD, HLD, Asthma, Depression, Hypertension, Hypothyroidism, DM2, that presents with chief complaint of shortness of breath. Patient was seen earlier in the day by her PCP who had recommended patient go to the ED for treatment of CHF exacerbation noted on CXR, physical exam, and elevated BNP. Patient's history of complicated by recent CABG x3 (MOREL-LAD, Ao-PDA, Ao-OM with reversed saphenous vein), Aortic valve replacement with 21mm Inspiris bioprosthetic valve and closure of PFO type ASD on 11/29/20. Patient notes that since her discharge after her CABG she has felt less short of breath since prior, though still notes significant symptoms of dyspnea on exertion. She had seen her PCP earlier this morning for a regular hospital follow up and had crackles noted on her lung exam prompting a further work up for patient's suspected CHF exacerbation. She notes that she has been taking her lasix as prescribed and that she has had no changes in her diet. She does not necessarily track her sodium intake, but does not feel it is too much. She does note that she feels more SOB when laying flat. She also notes that she was started on Keflex for the redness on her L leg where the saphenous vein was harvested. She notes that at rest she feels fine and not SOB. She denies any chest pain, chest pressure, abdominal pain, nausea, vomiting, diarrhea. She has not had her COVID-19 vaccination. Med Hx: CHF, GERD, CAD, HLD, Asthma, Depression, Hypertension, Hypothyroidism, DM2 Surg Hx: CABG x3 (MOREL-LAD, Ao-PDA, Ao-OM with reversed saphenous vein), Aortic valve replacement with 21mm Inspiris bioprosthetic valve, closure of PFO type ASD Soc Hx: No tobacco, alcohol, illicit drug use Admission Exam Per Admitting Provider Constitutional: well developed and well nourished; not in distress Eyes: PERRL, conjunctivae normal, anicteric sclerae ENMT: external ear and nose normal, oropharynx normal Neck: trachea midline, no thyromegaly Respiratory: normal respiratory effort and able to speak in complete sentences; no respiratory distress, no labored breathing and no audible wheezes Auscultation: + diminished lung sounds and + crackles ( bilateral lower lobes) Cardiovascular: Rate/Rhythm: regular rate and regular rhythm Heart Sounds: normal S1 and normal S2; no murmur Extremities: + edema (+1 edema to the mid rooney ) Gastrointestinal (Abdomen): normal bowel sounds, soft, nontender, no hepatosplenomegaly Musculoskeletal: no cyanosis or clubbing, extremities motor strength 5/5 Skin: no rashes, warm and dry + incision ( vertical chest -clean dry intact. LLE with surrounding erythema) Neurologic: PERRL, EOMI, accommodation nl, no face palsy, no dysarthria Psychiatric: A+Ox3, euthymic affect Apperance: appeared stated age Principal Diagnosis CHF Exacerbation Discharge Exam Constitutional WD/WN, vitals as above Eyes + anicteric sclerae Neck trachea midline Respiratory normal respiratory effort, lungs clear to auscultation Cardiovascular RRR, no murmur, no edema Vessels: no JVD Gastrointestinal (Abdomen) normal bowel sounds, soft, nontender, no hepatosplenomegaly Musculoskeletal no cyanosis or clubbing, extremities motor strength 5/5 Skin Well healing incision on the medial aspect of the R knee without any erythema present. Psychiatric A+Ox3, euthymic affect Discharge Data Allergies Allergy/AdvReac Type Severity Reaction Status Date / Time Tetanus Vaccines and Toxoid Allergy Mild ARM Verified 12/20/20 10:21 SWELLING-HOT TO TOUCH Consultations 12/20/20 21:57 ED Decision to Admit Stat Ordered Studies 12/20/20 19:29 CT angio chest PE protocol Urgent Hospital Course (1) CHF (congestive heart failure): Patient is a pleasant 65 year old female with PMHx CHF, GERD, CAD, HLD, Asthma, Depression, Hypertension, Hypothyroidism, DM2, that presents with chief complaint of shortness of breath. Patient was seen earlier in the day by her PCP who had recommended patient go to the ED for treatment of CHF exacerbation noted on CXR, physical exam, and elevated BNP. Patient's history of complicated by recent CABG x3 (MOREL-LAD, Ao-PDA, Ao-OM with reversed saphenous vein), Aortic valve replacement with 21mm Inspiris bioprosthetic valve and closure of PFO type ASD on 11/29/20. CHF exacerbation (preserved ejection fraction) -Echo acquired during this stay is comparable with echo on 11/29/20 with EF 60- 64%, HFpEF -Outpatient BNP elevated at 1580 -CXR with b/l pleural effusions, CTA showing pulmonary edema without clot or concern for PE -Sent home with Lasix 60 mg po qd -Low Na diet, 2000ml fluid restriction Cellulitis of Incision site L leg -Improved. Sent on 5 days of augmentin. -Culture came back as 2 separate gram negative organisms. CAD -Continue home ASA -Continue home Lipitor -S/P CABG x3 11/29/20 at [facility] Nondisplaced fx of the 1st rib on the L -Incidentally noted on CT -No treatment necessary at this time. GERD -Continue home Pepcid Hypothyroidism -Continue home Levothyroxine Depression -Continue home Venlafaxine DM2 -Continue home regimen of insulin Dispo: Home with self care FEN: HH, Low salt diet, 2000ml fluid restriction Code: DNR/DNI Total Time Total Time Spent Total Time Spent (In Minutes): 30 Discharge Plan Discharge Items Patient Disposition: Home - Self-Care Reason For Visit: CHF EXACERBATION Discharge Diagnosis: CHF exacerbation Activity: Resume your previous activity Non-emergency contact: Primary Care Provider Call non-emergency contact if: you have any medication questions Follow-up/Referrals: Cirilo Page CRNP [Primary Care Provider] - 12/28/20 11:40 am (You are already scheduled with Glenda Salgado PA-C. If you have any questions or need to change this appointment, please call [phone].) Diet: Heart Healthy and Low Sodium (2gm) Addtl Attending Provider Instructions: You came to the [facility] for shortness of breath. We believe your symptoms were due to an acute worsening of your chronic congestive heart failure. The cause of your exacerbation is uncertain, but it sounds like it has been brewing since your recent heart surgery. One common cause of acute worsening of congestive heart failure is an overload of dietary salt intake (eating more than normal processed foods, salty snacks, canned goods or bottled salad dressings). We treated you extra direutic doses (water pill) while under our care, and your breathing improved. We recommend you increase your daily lasix dose from 40mg daily to 60mg daily. A script was sent to your pharmacy for an additional 20mg dose (to add to your daily 40mg dose). We recommend you limit your daily sodium intake to less than 2g per day moving forward. Please see the attached handout for additional dietary guidance on low sodium food choices. We also treated you for a small bacterial infection of the skin on your lower leg. We treated you with a course of IV antibiotics while you were in the hospital. We would like you to continue taking Augmentin 875mg, twice daily for 5 days. Please schedule a follow up with your primary care physician within 1 week. Pending Studies at Discharge: No Stand-Alone Forms: My [facility] [employer], Smoking Cessation Medications and DC Order Prescriptions: New furosemide [Lasix] 20 mg tablet 20 mg PO DAILY Qty: 30 RF: 0 amoxicillin-pot clavulanate [Augmentin] 875-125 mg tablet 1 tab PO BID 5 Days Qty: 10 RF: 0 Continued (DME) pen needle, diabetic [BD Ultra-Fine Ruth Pen Needle] 32 gauge x 5/32" needle See Rx Instructions .ROUTE .MEDSUPPLY Qty: 100 RF: 3 aspirin 81 mg tablet,delayed release (DR/EC) 81 mg PO DAILY Qty: 90 RF: 2 levothyroxine 25 mcg tablet 25 mcg PO DAILY Qty: 30 RF: 2 atorvastatin 20 mg tablet 20 mg PO QPM Qty: 90 RF: 2 venlafaxine 150 mg capsule,extended release 24hr 150 mg PO DAILY RF: 0 famotidine 20 mg tablet 20 mg PO DAILY RF: 0 furosemide 40 mg tablet 40 mg PO DAILY RF: 0 potassium chloride 10 mEq tablet extended release 10 meq PO BID RF: 0 metformin 500 mg Tablet 500 mg PO DAILY RF: 0 Basaglar KwikPen U-100 Insulin 100 unit/mL (3 mL) Insulin Pen 16 unit SUBCUT DAILY RF: 0 venlafaxine 37.5 mg 37.5 mg DAILY RF: 0 Discontinued cephalexin 500 mg capsule 500 mg PO BID 5 Days Qty: 10 RF: 0 Discharge Orders: Discharge Order (Routine); Ordered 12/22/20 Ordered By: Asia Young/Other Patient Handouts: Low-Salt Choices Admission Data Admit Date/Time: 12/20/20 22:54 Attending Provider: Zackary Rivers Admit Provider: Mion Wang Primary Care Provider: Cirilo Page Other Providers: Sriin Moseley Other Interventions: Discharge Summary Assessment (RN) Last Done: 12/22/20 16:23 Supervising Physician Co-Signing Physician Notes I personally examined the patient and verified all butler points of history and exam, discussed case, and agree with decision making with Dr Moses. feeling better feeling up to going home Vitals noted, in general she is awake and alert pleasant no distress. HEENT normocephalic atraumatic mucous membranes moist. Lungs show much improved bibasilar rales very faint no rhonchi no wheezes. Acute diastolic CHF/acute HFpEFprobably all contextual given her recent CABG and valve surgery, have discussed sodium intake, able to walk w SpO2 >90, feels good, wants to go home. home on temporarily escalated diuretic close f/u. Left lower extremity cellulitisfortunately improving quite nicely. home on augmentin Otherwise as above. Resident Activity Tracking Resident Involvement: Resident Care Provided Care Provided: Adult Hospital Medicine
--- NOTE | 2020-12-22 18:51 | Billing Data ---
Date of Service December 22, 2020 Coding Level of Care Code D/C DAY MANAGEMENT <30 MINS
== END 2020-12-22 17:17 | disposition home or self-care (01) | DRG 291 ==
LOC: ED 17:49 → 2W 22:54 → SUATTDRO 22:54 → 2W 23:59

== ENCOUNTER 2023-04-23 15:28 | Inpatient (IN) ==
--- NOTE | 2023-04-23 15:50 | ED Triage Note ---
Date of Service April 23, 2023 Provider in Triage Author: Cecilia Vyas History of Present Illness This patient was briefly evaluated while in triage. An abbreviated physical exam was performed. This patient is a 67-year-old Female who presents to the ED for evaluation of left sided abdominal pain which started about 6 hours ago. She reports dry heaves. She states the pain started suddenly. She denies a history of similar symptoms. Physical Exam VITALS: Vitals are noted on the nurse's note and reviewed by myself. GENERAL: This is a 67-year-old female, sitting upright in triage. SKIN: The skin was without rashes. HEART: Regular rate and rhythm without murmurs gallops or rubs. LUNGS: Clear to auscultation bilaterally without wheezes, rales or rhonchi. ABDOMEN: Positive bowel sounds x 4. Tenderness to palpation in the left upper quadrant and left mid abdomen NEURO: Patient was alert and oriented to person place and time. Initial orders for labs and / or imaging were placed and patient was placed in the waiting area until a bed is available. Please see further documentation for the full ED course.
[2023-04-23 16:14] LABS: Appearance Urine Clear (Clear); Bacteria Urine Automated 4+ (Negative); Bilirubin Urine Negative (Negative); Blood Urine 2+ (Negative); Cast Urine Automated 0 /lpf (0-5); Color Urine Yellow; Glucose Urine UA 3+ (Negative); Ketones Urine Trace (Negative); Leukocyte Esterase Urine 1+ (Negative); Nitrite Urine Positive (Negative); Protein Urine Negative (Negative); RBC Urine Automated 0-4 /hpf (0-4); Specific Gravity Urine 1.024 (1.000-1.030); Urobilinogen Urine Negative (Negative); WBC Urine Automated >30 /hpf (0-5)
[2023-04-23 16:15] LABS: Basophils # (auto) 0.06 K/uL (0.00-0.20); Basophils % (auto) 0.6 %; Eosinophils # (auto) 0.11 K/uL (0.00-0.50); Eosinophils % (auto) 1.1 %; Hematocrit (blood only) 37.7 % (37.0-47.0); Hemoglobin 12.6 g/dl (12.0-16.0); Immature Granulocytes # (auto) 0.04 K/uL (0.01-0.20); Immature Granulocytes % (auto) 0.4 %; Lymphocytes # (auto) 0.86 K/uL (1.20-3.40); Lymphocytes % (auto) 8.7 %; Mean Corpuscular Hemoglobin 27.8 pg (25.0-34.0); Mean Corpuscular Hgb Conc 33.4 g/dL (32.0-36.0); Mean Corpuscular Volume 83.2 fL (80.0-100.0); Mean Platelet Volume 10.6 fL (9.4-12.4); Monocytes # (auto) 0.84 K/uL (0.11-0.59); Monocytes % (auto) 8.5 %; Neutrophils # (auto) 8.01 K/uL (1.40-6.50); Neutrophils % (auto) 80.7 %; Platelet Count 161 K/uL (130-400); RDW Coefficient of Variation 13.1 % (11.5-14.5); RDW Standard Deviation 39.8 fL (36.4-46.3); Red Blood Count 4.53 M/uL (4.20-5.40); White Blood Count 9.92 K/ul (4.8-10.8)
[2023-04-23 16:40] LABS: Alanine Aminotransferase 21 U/L (7-52); Albumin Globulin Ratio 0.9 (0.9-2); Albumin Level 3.7 gm/dl (3.4-5.0); Alkaline Phosphatase 192 U/L (34-104); Anion Gap 9 (3-11); Aspartate Aminotransferase 26 U/L (13-39); BUN Creatinine Ratio 16.3 (10-20); Bilirubin,Total 0.5 mg/dl (0.2-1.0); Blood Urea Nitrogen 13 mg/dl (6-23); Calcium 8.9 mg/dl (8.6-10.3); Carbon Dioxide 25 mmol/L (21-32); Chloride 98 mmol/L (98-107); Est GFR (African American) 88.4 ml/min; Est GFR (Non-African American) 76.3 ml/min; Globulin 4.2 gm/dl (2.5-4.0); Glucose 448 mg/dl (70-99(Fasting)); Potassium 4.3 mmol/L (3.5-5.1); Sodium 132 mmol/L (136-145); Total Protein 7.9 gm/dl (6.0-8.3)
[2023-04-23] MEDS ORDERED: OPTIRAY 320 500ml IV ONE (17:26)
[2023-04-23] MEDS ORDERED: MoRPHine SULFATE 10 MG/ML CARP/VIAL IV STA (17:55)
[2023-04-23] MEDS ORDERED: ONDANSETRON INJ 2 MG/ML 2 ML VIAL IV STA (17:55)
[2023-04-23] MEDS ORDERED: SODIUM CHLORIDE 0.9% 1,000 ML IV ONE (17:55)
[2023-04-23] MEDS ORDERED: cefTRIAXone SODIUM 2,000 MG/50 ML BAG IV STA (17:55)
--- NOTE | 2023-04-23 17:56 | CT Scan Report ---
CT OF THE ABDOMEN AND PELVIS WITH CONTRAST CLINICAL HISTORY: Left abdominal/flank pain. COMPARISON STUDY: None. TECHNIQUE: Following IV administration of 88 mL of Optiray, axial images of the abdomen and pelvis we re obtained from the lung bases to the proximal femurs. Images were reviewed in the axial, sagittal, and coronal planes. IV contrast was administered without complication. Automated exposure control wa s utilized for the study. A dose lowering technique was utilized adhering to the principles of ALARA . CT DOSE: 1230.08 mGy.cm FINDINGS: Paraesophageal varices are noted. The liver is cirrhotic appearing. No hepatic lesions are identified on portal venous phase study. There is no biliary or pancreatic ductal dilatation. The brigitte n, left and right portal veins are patent. There is a gallstone within the gallbladder. There is no e vidence for acute cholecystitis. Additional abdominal collaterals are present. The spleen is mildly e nlarged. There is no ascites. The adrenal glands and pancreas are unremarkable. There is heterogeneou s enhancement of the left kidney with moderate left perinephric stranding. There is left-sided urothe lial thickening. Right renal enhancement is slightly heterogeneous. No urinary calculi are present. T here is no hydronephrosis. There is no evidence for a bowel obstruction. The appendix is normal. Exte nsive colonic diverticulosis is present. No evidence for acute diverticulitis. There is no lymphadeno elena. No fluid collections are present. IMPRESSION: 1. Heterogeneous enhancement of the left kidney with moderate left perinephric stranding and urotheli al thickening. The findings favor acute pyelonephritis and pyelitis. Mild bladder wall thickening cou ld reflect cystitis. No renal abscess. No urinary calculi or hydronephrosis. 2. A few subtle hypoenhancing foci within the right kidney. Bilateral pyelonephritis would be difficu lt to exclude. 3. Cirrhotic liver. No hepatic lesions. 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 No ascites. 4. Extensive colonic diverticulosis. No evidence for acute diverticulitis. No bowel obstruction. ACT 112: Negative or not required by law. Electronically signed by: Kali Wang M.D. 04/23/2023 5:54 PM
--- NOTE | 2023-04-23 17:58 | Emergency Department Note ---
Impression & Plan Pyelonephritis, Acute hyperglycemia ED Provider Note NAME: EDUAR BARNES AGE: 67 SEX: F : 1955 ARRIVES VIA: Walk-In INFORMANT: Patient ED PROVIDER(S): Zackary Welch DO CHIEF COMPLAINT: left flank pain HPI: Patient is a 67-year-old female who presents to the ER to the left flank pain. This started earlier this morning. She admits to nausea and vomiting/dry heaving. Denies any headache or change in vision. She does have left back pain. No dysuria, urgency, or frequency that she is aware of. No other exacerbating or remitting. Normal bowel movements. ADDITIONAL HISTORY OBTAINED: Per HPI Chronic Medical/Social Conditions Affecting Care: Per HPI PAST MEDICAL HISTORY:See Below PAST SURGICAL HISTORY:See Below FAMILY HISTORY:See Below SOCIAL HISTORY:See Below HOME MEDICATIONS:See Below ALLERGIES:See Below VITALS:See Below PHYSICAL EXAMINATION: GENERAL: Sitting up in bed, alert, well appearing, well nourished, no distress, non-toxic EYE EXAM: normal conjunctiva. OROPHARYNX: mucous membranes are moist NECK: supple, no nuchal rigidity, no adenopathy, non-tender LUNGS: Clear to auscultation. Normal chest wall mechanics HEART: no murmurs, S1 normal and S2 normal ABDOMEN: abdomen soft, mild tenderness in left mid abdomen, normo-active bowel sounds, no masses, no rebound or guarding. UPPER EXTREMITIES: upper extremities are grossly normal. LOWER EXTREMITIES: No pitting edema. NEURO EXAM: Normal sensorium, cranial nerves II-XII grossly intact, normal speech, no gross weakness of arms, no gross weakness of legs. MEDICAL DECISION MAKING: Patient is a 67-year-old female who presents ER for above-stated complaint. IV was established blood work was obtained. Labs show no significant leukocytosis or anemia. BMP was remarkable for glucose elevated at 448. LFTs and bilirubin was unremarkable. UA was consistent with UTI with +4 bacteria, leuks whites and nitrites. CT confirms bilateral Timothy. Patient was given IV fluids and Rocephin. Updated bedside. Discussed with the hospitalist admitted for further workup. Consults/Care Managements Discussions: Per MDM Triage Nursing notes reviewed. Limited review of prior medical records performed Vital Signs: reviewed and remarkable for HTN Differential diagnosis: Differential diagnoses includes but is not limited to gastritis, peptic ulcer disease, GERD, gallbladder disease, pancreatitis, small bowel obstruction, appendicitis, diverticulitis, hernia, urinary tract infection, torsion, perforation, trauma, infectious. ER treatment provided: See below Diagnostics interpreted by me include EKG and cardiac monitoring as listed below: -Cardiac Monitoring: An order was placed for continuous cardiac monitoring. The monitor shows a rate of 80 with sinus rhythm. -ECG: none -Laboratory studies:Interpreted by me as stated above in MDM and shown below. Imaging studies: Xrays: As interpreted by me:none CTs show: CT abdomen pelvis per my preliminary read showed no obvious bowel obstruction CT abdomen pelvis per radiology showed Timothy. Procedures:none Critical Care: None Past Med/Surg History Medical History (Updated 04/23/23 @ 23:35 by Zackary Welch DO) Varices of other sites Portal hypertension Splenomegaly Liver cirrhosis GERD without esophagitis CAD (coronary artery disease) (11/29/20) MOREL-LAD, Ao-PDA, Ao-OM with reversed saphenous vein Moderate mitral regurgitation Mitral valve annular calcification Severe calcific aortic valve stenosis Vitamin deficiency Abdominal aortic aneurysm Heart murmur Acid reflux Fatty liver Anemia Acne Depression Hypertension Hypothyroidism (acquired) Hypercholesterolemia Type 2 diabetes mellitus Surgical History Status post device closure of ASD (11/29/20) Aortic valve replaced (11/29/20) with annular enlargement, 21 mm Inspiris Bioprosthetic valve S/P CABG x 3 H/O tubal ligation Status post hernia repair x3 Endometriosis Family History Father Stomach cancer Daughter Diabetes Heart disease Hypertension Mother Diabetes Sister No problems noted. Son Heart disease Hypertension Grandfather Myocardial infarction Denies family history of Ovarian cancer Prostate cancer Breast cancer Colorectal cancer Social History Smoking Status: Never smoker Second Hand Exposure: No; Do You Dip or Chew Tobacco: No; Hx Alcohol Use: No Hx Substance Use: No Preferred Language: Telugu Communication Ability: Effective Hearing Ability: Normal Corporate Development Analyst Required: No Beliefs That Will Affect Care: None marital status: Current Living Situation: Spouse current occupational status: unemployed current occupation: homemaker How many Children do You have: 5 Feels Safe at Home: Yes Childhood Exposure to Second-Hand Smoke: Yes Diet: regular caffeine: No during the past year weight has: remained stable Dental Care, Regularly: No Physical Activity Frequency: Does not Exercise Seatbelt Use: sometimes Sunscreen Use: Yes (sometimes) Assistive Devices: Oxygen - Continuous Allergies Allergies Allergy/AdvReac Type Severity Reaction Status Date / Time Penicillins Allergy Intermediate CAN'T Verified 04/23/23 18:18 REMEMBER Tetanus Vaccines and Toxoid Allergy Mild ARM Verified 12/12/22 12:22 SWELLING-HOT TO TOUCH Home Meds Home Medications Medication Instructions Recorded Confirmed insulin glargine 100 unit/mL (3 22 unit subcut QAM 04/23/23 04/23/23 mL) subcutaneous pen (Lantus Solostar U-100 Insulin) Previous Rx's Medication Instructions Recorded pen needle, diabetic 32 gauge x #100 ea 06/09/20" (BD Ultra-Fine Ruth Pen Needle) furosemide 20 mg tablet 20 mg PO DAILY PRN weight gain #30 04/11/22 tabs pantoprazole 40 mg tablet,delayed 40 mg PO DAILY #90 tabs 04/11/22 release (Protonix) atorvastatin 20 mg tablet 20 mg PO QPM #90 tabs 05/31/22 aspirin 81 mg tablet,delayed 81 mg PO DAILY #90 tabs 07/12/22 release empagliflozin 25 mg tablet 25 mg PO DAILY #90 tabs 08/04/22 levothyroxine 88 mcg tablet 88 mcg PO DAILY #30 tabs 08/04/22 lisinopril 5 mg tablet 5 mg PO DAILY #90 tabs 08/04/22 baclofen 5 mg tablet 5 mg PO BID #20 tabs 12/12/22 metformin 1,000 mg tablet 1,000 mg PO BID #180 tabs 01/23/23 venlafaxine 150 mg 150 mg PO DAILY #90 caps 03/01/23 capsule,extended release 24 hr Results & Data (ED) Vital Signs Vital Signs - 24 hr 04/23/23 15:48 04/23/23 18:11 04/23/23 18:24 Temperature 36.8 C Temperature Source Temporal Artery Scan Pulse Rate 75 Pulse Rate [Finger] 74 Pulse Rhythm [Finger] Regular Respiratory Rate 18 18 Respiratory Effort / Characteristics Non-Labored Spontaneous Respiratory Depth Normal Respiratory Pattern Regular Blood Pressure 150/70 H Blood Pressure [Right Arm] 159/85 H Blood Pressure Mean 96 Blood Pressure Mean [Right Arm] 109 Blood Pressure Position [Right Arm] Sitting Pulse Oximetry 90 92 84 L Oxygen Delivery Method Room Air Room Air Room Air Oxygen Flow Rate 0 Sepsis Recent Fever Within 48 Hours No Sepsis New/Unexplained Change in Mental Status No Sepsis Action Taken by Nursing No Action Required Oxygen Flow Rate - Titration 2 Pulse Oximetry Post Tiitration 95 Laboratory Data 04/23/23 15:56 04/23/23 15:56 Lab Results 04/23/23 04/23/23 Range/Units 15:50 15:56 WBC 9.92 (4.8-10.8) K/ul RBC 4.53 (4.20-5.40) M/uL Hgb 12.6 (12.0-16.0) g/dl Hct 37.7 (37.0-47.0) % MCV 83.2 (80.0-100.0) fL MCH 27.8 (25.0-34.0) pg MCHC 33.4 (32.0-36.0) g/dL RDW Std Deviation 39.8 (36.4-46.3) fL RDW Coeff of [place] 13.1 (11.5-14.5) % Plt Count 161 (130-400) K/uL MPV 10.6 (9.4-12.4) fL Immature Gran % (Auto) 0.4 % Neut % (Auto) 80.7 % Lymph % (Auto) 8.7 % [place] % (Auto) 8.5 % Eos % (Auto) 1.1 % Baso % (Auto) 0.6 % Neut # (Auto) 8.01 H (1.40-6.50) K/uL Lymph # (Auto) 0.86 L (1.20-3.40) K/uL [place] # (Auto) 0.84 H (0.11-0.59) K/uL Eos # (Auto) 0.11 (0.00-0.50) K/uL Baso # (Auto) 0.06 (0.00-0.20) K/uL Immature Gran # (Auto) 0.04 (0.01-0.20) K/uL Sodium 132 L (136-145) mmol/L Potassium 4.3 (3.5-5.1) mmol/L Chloride 98 (98-107) mmol/L Carbon Dioxide 25 (21-32) mmol/L Anion Gap 9 (3-11) BUN 13 (6-23) mg/dl Creatinine 0.80 (0.6-1.2) mg/dl Est Cr Clr Drug Dosing Not Reportable Est GFR ( Amer) 88.4 ml/min Est GFR (Non-Af Amer) 76.3 ml/min BUN/Creatinine Ratio 16.3 (10-20) Glucose 448 H* (70-99(Fasting)) mg/dl Calcium 8.9 (8.6-10.3) mg/dl Total Bilirubin 0.5 (0.2-1.0) mg/dl AST 26 (13-39) U/L ALT 21 (7-52) U/L Alkaline Phosphatase 192 H (34-104) U/L Total Protein 7.9 (6.0-8.3) gm/dl Albumin 3.7 (3.4-5.0) gm/dl Globulin 4.2 H (2.5-4.0) gm/dl Albumin/Globulin Ratio 0.9 (0.9-2) Urine Color Yellow Urine Appearance Clear (Clear) Urine pH 6.0 (4.5-7.5) Ur Specific [place] 1.024 (1.000-1.030) Urine Protein Negative (Negative) Urine Glucose (UA) 3+ H (Negative) Urine Ketones Trace H (Negative) Urine Blood 2+ H (Negative) Urine Nitrite Positive A (Negative) Urine Bilirubin Negative (Negative) Urine Urobilinogen Negative (Negative) Ur Leukocyte Esterase 1+ H (Negative) Urine WBC (Auto) >30 H (0-5) /hpf Urine RBC (Auto) 0-4 (0-4) /hpf U Hyaline Cast (Auto) 0 (0-5) /lpf U Epithel Cells (Auto) 10-20 H (0-5) /lpf Urine Bacteria (Auto) 4+ H (Negative) Administered Medications Acetaminophen (Acetaminophen 325 Mg Tab) 650 mg PO Q4H PRN PRN Reason: Pain or Fever Stop: 05/23/23 21:16 Last Admin: 04/23/23 23:27 Dose: 650 mg Documented By: SORAIDA Atorvastatin Calcium (Atorvastatin 20 Mg Tab) 20 mg PO QPM YAMIL Stop: 05/23/23 21:16 Last Admin: 04/23/23 21:55 Dose: 20 mg Documented By: IBETH Baclofen (Baclofen 10 Mg Tab) 5 mg PO BID YAMIL Stop: 05/23/23 21:16 Last Admin: 04/23/23 21:55 Dose: 5 mg Documented By: IBETH Enoxaparin Sodium (Enoxaparin Inj 40 Mg/0.4 Ml Syr) 40 mg SQ Q24H YAMIL Stop: 05/23/23 21:59 Last Admin: 04/23/23 23:25 Dose: 40 mg Documented By: SORAIDA Potassium Chloride/Sodium Chloride (Normal Saline W/20 Meq Kcl) 20 meq in 1,000 mls @ 80 mls/hr IV .[id number] [facility] Stop: 04/24/23 11:14 Last Admin: 04/23/23 22:43 Dose: 80 mls/hr Documented By: SORAIDA Insulin Aspart (Insulin Aspart Per Unit Charge) 0 units SC ACHS YAMIL Stop: 05/23/23 21:16 Last Admin: 04/23/23 22:56 Dose: Not Given Documented By: SORAIDA Co-signed By: FLORENCE Discontinued Medications Sodium Chloride (Nss) 1,000 mls @ 999 mls/hr IV .Q1H1M ONE Stop: 04/23/23 18:55 Last Infusion: 04/23/23 19:22 Dose: Infused Documented By: Admin: 04/23/23 18:06 Dose: 999 mls/hr Documented By: MELINDA Ceftriaxone Sodium (Rocephin) 2,000 mg in 50 mls @ 100 mls/hr IV NOW STA Stop: 04/23/23 18:24 Last Infusion: 04/23/23 19:22 Dose: Infused Documented By: Admin: 04/23/23 18:11 Dose: 100 mls/hr Documented By: MELINDA Cefepime HCl 2,000 mg/ Syringe 20 mls @ 5 mls/min IV NOW ONE; Protocol Stop: 04/23/23 21:18 Last Admin: 04/23/23 21:41 Dose: 5 mls/min Documented By: IBETH Insulin Aspart (Insulin Aspart Per Unit Charge) 10 units SC NOW STA Stop: 04/23/23 20:53 Last Admin: 04/23/23 21:44 Dose: 10 units Documented By: IBETH Co-signed By: SORAIDA Ioversol (Optiray 320 500ml) 88 ml IV ONCE ONE Stop: 04/23/23 17:27 Last Admin: 04/23/23 17:26 Dose: 88 ml Documented By: FLORINDA Miscellaneous (Patient's Height &/Or Weight Needed) 1 each N/A Q2H YAMIL Stop: 05/23/23 21:14 Last Admin: 04/23/23 21:37 Dose: 1 each Documented By: IBETH Morphine Sulfate (Morphine Sulfate 10 Mg/Ml Carp/Vial) 6 mg IV NOW STA Stop: 04/23/23 17:56 Last Admin: 04/23/23 18:06 Dose: 6 mg Documented By: MELINDA Ondansetron HCl (Ondansetron Inj 2 Mg/Ml 2 Ml Vial) 4 mg IV NOW STA Stop: 04/23/23 17:56 Last Admin: 04/23/23 18:06 Dose: 4 mg Documented By: MELINDA Potassium Chloride/Sodium Chloride (Nss+Kcl 20 Meq 1000ml) Confirm Administered Dose 20 meq IV .STK-MED ONE Stop: 04/23/23 21:27 Last Admin: 04/23/23 21:42 Dose: Not Given Documented By: IBETH Imaging Data Radiologist's Impression: Abdomen/Pelvis CT 04/23/23 15:51 CT OF THE ABDOMEN AND PELVIS WITH CONTRAST CLINICAL HISTORY: Left abdominal/flank pain. COMPARISON STUDY: None. TECHNIQUE: Following IV administration of 88 mL of Optiray, axial images of the abdomen and pelvis were obtained from the lung bases to the proximal femurs. Images were reviewed in the axial, sagittal, and coronal planes. IV contrast was administered without complication. Automated exposure control was utilized for the study. A dose lowering technique was utilized adhering to the principles of ALARA. CT DOSE: 1230.08 mGy.cm FINDINGS: Paraesophageal varices are noted. The liver is cirrhotic appearing. No hepatic lesions are identified on portal venous phase study. There is no biliary or pancreatic ductal dilatation. The main, left and right portal veins are patent. There is a gallstone within the gallbladder. There is no evidence for acute cholecystitis. Additional abdominal collaterals are present. The spleen is mildly enlarged. There is no ascites. The adrenal glands and pancreas are unremarkable. There is heterogeneous enhancement of the left kidney with moderate left perinephric stranding. There is left-sided urothelial thickening. Right renal enhancement is slightly heterogeneous. No urinary calculi are present. There is no hydronephrosis. There is no evidence for a bowel obstruction. The appendix is normal. Extensive colonic diverticulosis is present. No evidence for acute diverticulitis. There is no lymphadenopathy. No fluid collections are present. IMPRESSION: 1. Heterogeneous enhancement of the left kidney with moderate left perinephric stranding and urothelial thickening. The findings favor acute pyelonephritis and pyelitis. Mild bladder wall thickening could reflect cystitis. No renal abscess. No urinary calculi or hydronephrosis. 2. A few subtle hypoenhancing foci within the right kidney. Bilateral pyelonephritis would be difficult to exclude. 3. Cirrhotic liver. No hepatic lesions. Varices formation and splenomegaly indicative of portal hypertension. No ascites. 4. Extensive colonic diverticulosis. No evidence for acute diverticulitis. No bowel obstruction. ACT 112: Negative or not required by law. Electronically signed by: Kali Wang M.D. 04/23/2023 5:54 PM Discharge Plan Visit Data Chief Complaint: Flank Pain Stated Complaint: LEFT SIDE FLANK PAIN ED Provider: Zackary Welch Discharge Problem: Pyelonephritis, Acute hyperglycemia Patient Disposition: Admitted As Inpatient Discharge Instructions Interventions: ED Discharge Assessment Last Done: 04/23/23 21:18
[2023-04-23] MEDS ORDERED: DEXTROSE 50% 50 ML SYRINGE IV PRN ×2 (19:56→21:17)
[2023-04-23] MEDS ORDERED: CARBOHYDRATES FOR HYPOGLYCEMIA PO PRN ×2 (19:56→21:17)
[2023-04-23] MEDS ORDERED: GLUCOSE 40% GEL 15 GM TUBE PO PRN ×2 (19:56→21:17)
[2023-04-23] MEDS ORDERED: GLUCAGON FOR INJ 1 MG VIAL SQ PRN ×2 (19:56→21:17)
[2023-04-23] MEDS ORDERED: GLUCOSE 10 TAB/TUBE PO PRN ×2 (19:56→21:17)
--- NOTE | 2023-04-23 20:07 | History & Physical Report ---
Date of Service April 23, 2023 Assessment & Plan (1) Pyelonephritis of left kidney: (2) Hyperglycemia due to type 2 diabetes mellitus: (3) Liver cirrhosis: (4) Splenomegaly: (5) Portal hypertension: (6) Varices of other sites: (7) Status post device closure of ASD: (8) Aortic valve replaced: (9) S/P CABG x 3: (10) CAD (coronary artery disease): (11) GERD without esophagitis: (12) Type 2 diabetes mellitus: Plan Pyelonephritis of left kidney/cannot rule out right kidney pyelonephritis/possible cystitis- Follow urine culture and sensitivity Given ceftriaxone 2 g IV from the ED Place on cefepime 2 g IV every 12 hours due to history of diabetes Status post 1 L normal saline in the ED Place on NSS + KCl 20 MEQ's at 100 mL/h x 1 L Likely brought on by dietary discretion associated hyperglycemia and other poor oral intake over the holidays Hyperglycemia in diabetes mellitus type 2- Glucose 448 on admission Status post 1 L normal saline in the ED Check an Accu-Chek now to determine initial diabetic treatment Otherwise place on Accu-Cheks with NovoLog SSI Continue glargine 22 units subcu in the morning Check hemoglobin A1c Discussed with patient's avoidance of dietary indiscretion which caused her hyperglycemia Hold metformin, continue empagliflozin CAD/hypertension/history of ASD closure/aortic valve replacement/status post CABG- Continue aspirin, lisinopril Liver cirrhosis/paraesophageal and perigastric varices/splenomegaly/portal hypertension- Will hydrate gently due to pyelonephritis Patient will need to be placed on beta-nic, furosemide and spironolactone prior to discharge History of Present Illness Chief Complaint: The patient presents to the emergency department with complaint of left flank pain that began earlier in the day today. Primary Care Provider: PRABHA Ramirez The patient is a 67-year-old female with a past medical history including CHF, pleural effusion, ASD closure, aortic valve replacement, CABG x 3, GERD, CAD, moderate MR, asthma, depression, hypertension, hypothyroidism, hypercholesterolemia and diabetes mellitus. She presented to the emergency department with left flank pain that began earlier in the day today. She reports that her sugars have been more significantly more elevated than usual due to inappropriate diet over the holidays. She has persistent balance problems and walking due to peripheral neuropathy Allergies Allergy/AdvReac Type Severity Reaction Status Date / Time Penicillins Allergy Intermediate CAN'T Verified 04/23/23 18:18 REMEMBER Tetanus Vaccines and Toxoid Allergy Mild ARM Verified 12/12/22 12:22 SWELLING-HOT TO TOUCH Home Medications Medication Instructions Recorded Confirmed Type pen needle, diabetic 32 gauge x #100 ea 06/09/20 12/12/22 Rx 5/32" (BD Ultra-Fine Ruth Pen Needle) furosemide 20 mg tablet 20 mg PO DAILY PRN weight gain #30 04/11/22 04/23/23 Rx tabs pantoprazole 40 mg tablet,delayed 40 mg PO DAILY #90 tabs 04/11/22 04/23/23 Rx release (Protonix) atorvastatin 20 mg tablet 20 mg PO QPM #90 tabs 05/31/22 04/23/23 Rx aspirin 81 mg tablet,delayed 81 mg PO DAILY #90 tabs 07/12/22 04/23/23 Rx release empagliflozin 25 mg tablet 25 mg PO DAILY #90 tabs 08/04/22 04/23/23 Rx levothyroxine 88 mcg tablet 88 mcg PO DAILY #30 tabs 08/04/22 04/23/23 Rx lisinopril 5 mg tablet 5 mg PO DAILY #90 tabs 08/04/22 04/23/23 Rx baclofen 5 mg tablet 5 mg PO BID #20 tabs 12/12/22 04/23/23 Rx metformin 1,000 mg tablet 1,000 mg PO BID #180 tabs 01/23/23 04/23/23 Rx venlafaxine 150 mg 150 mg PO DAILY #90 caps 03/01/23 04/23/23 Rx capsule,extended release 24 hr insulin glargine 100 unit/mL (3 22 unit subcut QAM 04/23/23 04/23/23 History mL) subcutaneous pen (Lantus Solostar U-100 Insulin) Past Med/Surg History Medical History (Updated 04/23/23 @ 20:23 by Srini Moseley MD) Varices of other sites Portal hypertension Splenomegaly Liver cirrhosis GERD without esophagitis CAD (coronary artery disease) (11/29/20) MOREL-LAD, Ao-PDA, Ao-OM with reversed saphenous vein Moderate mitral regurgitation Mitral valve annular calcification Severe calcific aortic valve stenosis Vitamin deficiency Abdominal aortic aneurysm Heart murmur Acid reflux Fatty liver Anemia Acne Depression Hypertension Hypothyroidism (acquired) Hypercholesterolemia Type 2 diabetes mellitus Surgical History Status post device closure of ASD (11/29/20) Aortic valve replaced (11/29/20) with annular enlargement, 21 mm Inspiris Bioprosthetic valve S/P CABG x 3 H/O tubal ligation Status post hernia repair x3 Endometriosis Family History Father Stomach cancer Daughter Diabetes Heart disease Hypertension Mother Diabetes Sister No problems noted. Son Heart disease Hypertension Grandfather Myocardial infarction Denies family history of Ovarian cancer Prostate cancer Breast cancer Colorectal cancer Social History Smoking Status: Never smoker Second Hand Exposure: No; Do You Dip or Chew Tobacco: No; Hx Alcohol Use: No Hx Substance Use: No Preferred Language: Czech Communication Ability: Effective Hearing Ability: Normal Plastic Duplicator Required: No Beliefs That Will Affect Care: None marital status: Current Living Situation: Spouse current occupational status: unemployed current occupation: homemaker How many Children do You have: 5 Feels Safe at Home: Yes Childhood Exposure to Second-Hand Smoke: Yes Diet: regular caffeine: No during the past year weight has: remained stable Dental Care, Regularly: No Physical Activity Frequency: Does not Exercise Seatbelt Use: sometimes Sunscreen Use: Yes (sometimes) Assistive Devices: Oxygen - Continuous Review of Systems Review of Systems: The patient denies chest pain, palpitations, shortness of breath, dyspnea on exertion, cough, lower extremity swelling, sore throat, fevers, chills, sweats, weight change, fatigue, nausea, vomiting, diarrhea , constipation, blood in urine or stool, dysuria, urinary frequency or urgency, lightheadedness, dizziness, headache, memory loss, loss of consciousness, rash, abnormal bruising or bleeding, focal or generalized weakness, numbness or tingling in arms, generalized arthralgias or myalgias, neck pain, or night sweats. The review of systems is otherwise negative other than for that already noted above, and at least 10 systems have been reviewed. Physical Exam Physical Exam: The patient is awake, alert and oriented 3, well developed and well nourished, normocephalic and atraumatic, lying in bed and in no acute distress. HEENT--PERRL, EOMI, mucous membranes and oropharynx dry. Neck--supple. No JVD. No bruits. Thyroid normal, trachea midline, no adenopathy. Heart--normal S1 and S2. No murmurs, rubs or gallops. Lungs--clear bilaterally, no respiratory distress, no accessory muscle use. Abdomen--normal bowel sounds and soft. Nontender. Nondistended, no hernias or masses, no organomegaly. Extremities-- No edema. Dermatologic--normal skin turgor, normal color, no abnormal lymph nodes, no rash. Neurologic--cranial nerves II through XII grossly intact. Rheumatologic--normal range of motion. Psychiatric--normal affect. Results & Data Results & Data Vital Signs (Past 12 Hours) Vital Signs Temp Pulse Pulse Resp BP BP Pulse Ox 04/23/23 18:24 84 L 04/23/23 18:11 74 18 159/85 H 92 04/23/23 15:48 36.8 C 75 18 150/70 H 90 O2 Del Method O2 Flow Rate 04/23/23 18:24 Room Air 0 04/23/23 18:11 Room Air 04/23/23 15:48 Room Air Laboratory Results Laboratory Results WBC 9.92 K/ul (4.8-10.8) 04/23/23 15:56 RBC 4.53 M/uL (4.20-5.40) 04/23/23 15:56 Hgb 12.6 g/dl (12.0-16.0) 04/23/23 15:56 Hct 37.7 % (37.0-47.0) 04/23/23 15:56 MCV 83.2 fL (80.0-100.0) 04/23/23 15:56 MCH 27.8 pg (25.0-34.0) 04/23/23 15:56 MCHC 33.4 g/dL (32.0-36.0) 04/23/23 15:56 RDW Std Deviation 39.8 fL (36.4-46.3) 04/23/23 15:56 RDW Coeff of [place] 13.1 % (11.5-14.5) 04/23/23 15:56 Plt Count 161 K/uL (130-400) 04/23/23 15:56 MPV 10.6 fL (9.4-12.4) 04/23/23 15:56 Immature Gran % (Auto) 0.4 % 04/23/23 15:56 Neut % (Auto) 80.7 % 04/23/23 15:56 Lymph % (Auto) 8.7 % 04/23/23 15:56 Hand % (Auto) 8.5 % 04/23/23 15:56 Eos % (Auto) 1.1 % 04/23/23 15:56 Baso % (Auto) 0.6 % 04/23/23 15:56 Neut # (Auto) 8.01 K/uL (1.40-6.50) H 04/23/23 15:56 Lymph # (Auto) 0.86 K/uL (1.20-3.40) L 04/23/23 15:56 Hand # (Auto) 0.84 K/uL (0.11-0.59) H 04/23/23 15:56 Eos # (Auto) 0.11 K/uL (0.00-0.50) 04/23/23 15:56 Baso # (Auto) 0.06 K/uL (0.00-0.20) 04/23/23 15:56 Immature Gran # (Auto) 0.04 K/uL (0.01-0.20) 04/23/23 15:56 Sodium 132 mmol/L (136-145) L 04/23/23 15:56 Potassium 4.3 mmol/L (3.5-5.1) 04/23/23 15:56 Chloride 98 mmol/L (98-107) 04/23/23 15:56 Carbon Dioxide 25 mmol/L (21-32) 04/23/23 15:56 Anion Gap 9 (3-11) 04/23/23 15:56 BUN 13 mg/dl (6-23) 04/23/23 15:56 Creatinine 0.80 mg/dl (0.6-1.2) 04/23/23 15:56 Est Cr Clr Drug Dosing Not Reportable 04/23/23 15:56 Est GFR ( Amer) 88.4 ml/min 04/23/23 15:56 Est GFR (Non-Af Amer) 76.3 ml/min 04/23/23 15:56 BUN/Creatinine Ratio 16.3 (10-20) 04/23/23 15:56 Glucose 448 mg/dl (70-99(Fasting)) H* 04/23/23 15:56 POC Glucose 395 mg/dl (70-99) H* 04/23/23 20:14 Calcium 8.9 mg/dl (8.6-10.3) 04/23/23 15:56 Total Bilirubin 0.5 mg/dl (0.2-1.0) 04/23/23 15:56 AST 26 U/L (13-39) 04/23/23 15:56 ALT 21 U/L (7-52) 04/23/23 15:56 Alkaline Phosphatase 192 U/L (34-104) H 04/23/23 15:56 Total Protein 7.9 gm/dl (6.0-8.3) 04/23/23 15:56 Albumin 3.7 gm/dl (3.4-5.0) 04/23/23 15:56 Globulin 4.2 gm/dl (2.5-4.0) H 04/23/23 15:56 Albumin/Globulin Ratio 0.9 (0.9-2) 04/23/23 15:56 Urine Color Yellow 04/23/23 15:50 Urine Appearance Clear (Clear) 04/23/23 15:50 Urine pH 6.0 (4.5-7.5) 04/23/23 15:50 Ur Specific [place] 1.024 (1.000-1.030) 04/23/23 15:50 Urine Protein Negative (Negative) 04/23/23 15:50 Urine Glucose (UA) 3+ (Negative) H 04/23/23 15:50 Urine Ketones Trace (Negative) H 04/23/23 15:50 Urine Blood 2+ (Negative) H 04/23/23 15:50 Urine Nitrite Positive (Negative) A 04/23/23 15:50 Urine Bilirubin Negative (Negative) 04/23/23 15:50 Urine Urobilinogen Negative (Negative) 04/23/23 15:50 Ur Leukocyte Esterase 1+ (Negative) H 04/23/23 15:50 Urine WBC (Auto) >30 /hpf (0-5) H 04/23/23 15:50 Urine RBC (Auto) 0-4 /hpf (0-4) 04/23/23 15:50 U Hyaline Cast (Auto) 0 /lpf (0-5) 04/23/23 15:50 U Epithel Cells (Auto) 10-20 /lpf (0-5) H 04/23/23 15:50 Urine Bacteria (Auto) 4+ (Negative) H 04/23/23 15:50 Impressions Abdomen/Pelvis CT 04/23/23 15:51 CT OF THE ABDOMEN AND PELVIS WITH CONTRAST CLINICAL HISTORY: Left abdominal/flank pain. COMPARISON STUDY: None. TECHNIQUE: Following IV administration of 88 mL of Optiray, axial images of the abdomen and pelvis were obtained from the lung bases to the proximal femurs. Images were reviewed in the axial, sagittal, and coronal planes. IV contrast was administered without complication. Automated exposure control was utilized for the study. A dose lowering technique was utilized adhering to the principles of ALARA. CT DOSE: 1230.08 mGy.cm FINDINGS: Paraesophageal varices are noted. The liver is cirrhotic appearing. No hepatic lesions are identified on portal venous phase study. There is no biliary or pancreatic ductal dilatation. The main, left and right portal veins are patent. There is a gallstone within the gallbladder. There is no evidence for acute cholecystitis. Additional abdominal collaterals are present. The spleen is mildly enlarged. There is no ascites. The adrenal glands and pancreas are unremarkable. There is heterogeneous enhancement of the left kidney with moderate left perinephric stranding. There is left-sided urothelial thickening. Right renal enhancement is slightly heterogeneous. No urinary calculi are present. There is no hydronephrosis. There is no evidence for a bowel obstruction. The appendix is normal. Extensive colonic diverticulosis is present. No evidence for acute diverticulitis. There is no lymphadenopathy. No fluid collections are present. IMPRESSION: 1. Heterogeneous enhancement of the left kidney with moderate left perinephric stranding and urothelial thickening. The findings favor acute pyelonephritis and pyelitis. Mild bladder wall thickening could reflect cystitis. No renal abscess. No urinary calculi or hydronephrosis. 2. A few subtle hypoenhancing foci within the right kidney. Bilateral pyelonephritis would be difficult to exclude. 3. Cirrhotic liver. No hepatic lesions. Varices formation and splenomegaly indicative of portal hypertension. No ascites. 4. Extensive colonic diverticulosis. No evidence for acute diverticulitis. No bowel obstruction. ACT 112: Negative or not required by law. Electronically signed by: Kali Wang M.D. 04/23/2023 5:54 PM Code Status & VTE Plan Code Status Full code VTE Prophylaxis Plan VTE Prophylaxis will be ordered: Yes PG Care Time/CCT Total # of Minutes Spent Total Time Spent with Patient: Total time spent is greater than 50% in coordination of care (as documented) at patient's floor/unit and/or counseling patient: Coding Level of Care Code 79238 INT INP/OBS CARE 3/75MIN Diagnoses Pyelonephritis of left kidney N12 Hyperglycemia due to type 2 diabetes mellitus E11.65 Liver cirrhosis K74.60 Splenomegaly R16.1 Portal hypertension K76.6 Varices of other sites I86.8 Status post device closure of ASD Z87.74 Aortic valve replaced Z95.2 S/P CABG x 3 Z95.1 CAD (coronary artery disease) I25.10 GERD without esophagitis K21.9 Type 2 diabetes mellitus E11.9
[2023-04-23] MEDS ORDERED: INSULIN ASPART PER UNIT CHARGE SC STA (20:52)
[2023-04-23] MEDS ORDERED: Patient's HEIGHT &/or WEIGHT Needed SCH (21:15)
[2023-04-23] MEDS ORDERED: CEFEPIME 2,000 MG in SYRINGE 0 ML IV ONE (21:15)
[2023-04-23] MEDS ORDERED: NSS+KCL 20 MEQ 1000ML IV ONE (21:26)
[2023-04-23] MEDS: BACLOFEN 10 MG TAB PO SCH (21:55)
[2023-04-23] MEDS: ATORVASTATIN 20 MG TAB PO SCH (21:55)
[2023-04-23] MEDS ORDERED: NSS + 20MEQ KCL 20 MEQ/1,000 ML BAG IV SCH (22:45)
[2023-04-23] MEDS: INSULIN ASPART PER UNIT CHARGE SC SCH (22:56)
[2023-04-23] MEDS: ENOXAPARIN INJ 40 MG/0.4 ML SYR SQ SCH (23:25)
[2023-04-23] MEDS: ACETAMINOPHEN 325 MG TAB PO PRN (23:27)
[2023-04-24] MEDS ORDERED: INSULIN ASPART PER UNIT CHARGE SC STA (00:51)
[2023-04-24] MEDS ORDERED: LANTUS PER UNIT CHARGE SQ STA (00:54)
[2023-04-24 04:28] LABS: Albumin Globulin Ratio 0.9 (0.9-2); Albumin Level 3.3 gm/dl (3.4-5.0); Bilirubin,Total 0.4 mg/dl (0.2-1.0); Calcium 8.3 mg/dl (8.6-10.3); Creatinine Clr Calc Pharmacy 52.1 ml/min; Est GFR (African American) 72.8 ml/min; Est GFR (Non-African American) 62.8 ml/min; Globulin 3.8 gm/dl (2.5-4.0); Magnesium 1.7 mg/dl (1.7-2.4); Potassium 3.8 mmol/L (3.5-5.1); Total Protein 7.1 gm/dl (6.0-8.3)
[2023-04-24 04:56] LABS: Basophils # (auto) 0.06 K/uL (0.00-0.20); Basophils % (auto) 0.5 %; Eosinophils # (auto) 0.11 K/uL (0.00-0.50); Eosinophils % (auto) 0.9 %; Hemoglobin 11.6 g/dl (12.0-16.0); Immature Granulocytes # (auto) 0.06 K/uL (0.01-0.20); Immature Granulocytes % (auto) 0.5 %; Lymphocytes # (auto) 1.59 K/uL (1.20-3.40); Lymphocytes % (auto) 12.6 %; Mean Corpuscular Hemoglobin 27.7 pg (25.0-34.0); Mean Corpuscular Hgb Conc 32.2 g/dL (32.0-36.0); Mean Corpuscular Volume 85.9 fL (80.0-100.0); Mean Platelet Volume 10.6 fL (9.4-12.4); Monocytes % (auto) 11.1 %; Neutrophils # (auto) 9.36 K/uL (1.40-6.50); Neutrophils % (auto) 74.4 %; Platelet Count 169 K/uL (130-400); RDW Coefficient of Variation 13.4 % (11.5-14.5); RDW Standard Deviation 42.4 fL (36.4-46.3); Red Blood Count 4.19 M/uL (4.20-5.40); White Blood Count 12.58 K/ul (4.8-10.8)
[2023-04-24] MEDS: LEVOTHYROXINE SODIUM 88 MCG TABLET PO SCH (06:35)
[2023-04-24 07:34] LABS: Estimated Average Glucose 335 mg/dl; Hemoglobin A1C 13.3 % (4.5-5.6)
[2023-04-24] MEDS ORDERED: CEFEPIME 2,000 MG in SYRINGE 0 ML IV SCH (08:00)
[2023-04-24] MEDS ORDERED: LANTUS PER UNIT CHARGE SC SCH (09:00)
[2023-04-24] MEDS: lisinopril 5 MG TAB PO SCH (09:13)
[2023-04-24] MEDS: EMPAGLIFLOZIN 25 MG TAB PO SCH (09:13)
[2023-04-24] MEDS: BACLOFEN 10 MG TAB PO SCH ×2 (09:13→20:13)
[2023-04-24] MEDS: VENLAFAXINE HCL XR 150 MG CAPXR PO SCH (09:13)
[2023-04-24] MEDS: PANTOprazole 40 MG TAB PO SCH (09:13)
[2023-04-24] MEDS: ASPIRIN 81 MG ECTAB PO SCH (09:13)
[2023-04-24] MEDS: cefTRIAXone SODIUM 2,000 MG in DEXTROSE 5 % MINI-B 50 ML IV SCH (09:20)
[2023-04-24] MEDS: INSULIN ASPART PER UNIT CHARGE SC SCH ×4 (09:42→20:38)
--- NOTE | 2023-04-24 12:06 | Hospitalist Progress Note ---
Date of Service April 24, 2023 Assessment & Plan (1) Pyelonephritis: Plan: Pyelonephritis present on admissionfortunately seems to be quite stableswitch antibiotics to ceftriaxone, follow cultures. Likely came on due to markedly uncontrolled diabetes/glucose urea with her SGLT2 (2) Hyperglycemia due to type 2 diabetes mellitus: Plan: See aboveI suspect her pyelonephritis was largely because of uncontrolled diabetes and excess glucosuria. At the same time she is markedly uncontrolled. Started to lay a foundation for reeducation about diabetes self-care, but obviously while she has been sick and fatigued right now/today would not really be the best day to have in-depth discussionswill further discussions throughout her hospital stay. A1c 13.3. Titrate basal/bolus insulin management. (3) Liver cirrhosis: Plan: Almost certainly metabolic/nonalcoholic fatty liver leading to cirrhosis from uncontrolled diabetes. Discussed this with patient from an overview standpoint. Fortunately bilirubin and INR are reassuring. Does show radiographic signs of portal hypertension. (4) CAD (coronary artery disease): Plan: Clinically appears to be stable, continue home meds (5) DVT prophylaxis: Plan: Lovenox (6) Discharge planning issues: Plan: Came from home, hopefully will be able to go home once she improves from her pyelonephritis Admission and Anticipated Discharge Date Admission Date: April 23, 2023 Subjective Feeling may be the tiniest bit better. Does not drink alcohol. Discussed pyelonephritis as well as new finding of cirrhosis (she does not recall being told about this before either). Review of old records does not show any significant liver related findings either. Review of Systems Review of Systems: All systems reviewed & are unremarkable except as noted in HPI & below Physical Exam Physical Exam: In general she is very fatigued but otherwise awake alert pleasant no distress. HEENT normocephalic atraumatic mucous membranes moist. Breathing unlabored no accessory muscle use good effort. Skin shows no rashes no pallor or icterus. Neuro without focal deficits. Results & Data Results & Data Vital Signs (Past 12 Hours) Vital Signs Temp Pulse Pulse Resp BP Pulse Ox O2 Del Method 04/24/23 09:14 98.4 F 81 18 136/75 94 Room Air 04/24/23 07:15 83 04/24/23 04:00 98.8 F 80 16 121/67 94 Room Air 01/02/24 00:08 81 PG Care Time/CCT Total # of Minutes Spent Total Time Spent with Patient: Total time spent is greater than 50% in coordination of care (as documented) at patient's floor/unit and/or counseling patient: Coding Level of Care Code 16584 SUB INP/OBS CARE 3/50MIN Diagnoses Pyelonephritis N12 Hyperglycemia due to type 2 diabetes mellitus E11.65 Liver cirrhosis K74.60 CAD (coronary artery disease) I25.10 DVT prophylaxis Z29.9 Discharge planning issues Z02.9
[2023-04-24] MEDS: ATORVASTATIN 20 MG TAB PO SCH (20:13)
[2023-04-24] MEDS: ACETAMINOPHEN 325 MG TAB PO PRN (20:13)
[2023-04-24] MEDS: ENOXAPARIN INJ 40 MG/0.4 ML SYR SQ SCH (20:15)
[2023-04-24] MEDS: LANTUS PER UNIT CHARGE SC SCH (20:39)
[2023-04-25] MEDS: LEVOTHYROXINE SODIUM 88 MCG TABLET PO SCH (06:18)
[2023-04-25] MEDS: ACETAMINOPHEN 325 MG TAB PO PRN ×2 (06:21→21:14)
[2023-04-25 06:42] LABS: Basophils # (auto) 0.03 K/uL (0.00-0.20); Basophils % (auto) 0.4 %; Eosinophils # (auto) 0.09 K/uL (0.00-0.50); Eosinophils % (auto) 1.2 %; Immature Granulocytes # (auto) 0.03 K/uL (0.01-0.20); Immature Granulocytes % (auto) 0.4 %; Lymphocytes # (auto) 0.77 K/uL (1.20-3.40); Mean Corpuscular Hemoglobin 27.7 pg (25.0-34.0); Mean Corpuscular Hgb Conc 32.4 g/dL (32.0-36.0); Mean Corpuscular Volume 85.6 fL (80.0-100.0); Mean Platelet Volume 10.7 fL (9.4-12.4); Monocytes # (auto) 0.89 K/uL (0.11-0.59); Monocytes % (auto) 11.5 %; Neutrophils % (auto) 76.5 %; Platelet Count 140 K/uL (130-400); RDW Coefficient of Variation 13.7 % (11.5-14.5); RDW Standard Deviation 42.7 fL (36.4-46.3); Red Blood Count 3.97 M/uL (4.20-5.40); White Blood Count 7.71 K/ul (4.8-10.8)
[2023-04-25 06:44] LABS: Calcium 8.3 mg/dl (8.6-10.3); Creatinine Clr Calc Pharmacy 55.4 ml/min; Est GFR (African American) 78.8 ml/min; Potassium 3.8 mmol/L (3.5-5.1)
--- NOTE | 2023-04-25 07:01 | Hospitalist Progress Note ---
Date of Service April 25, 2023 Assessment & Plan (1) Pyelonephritis: (2) Hyperglycemia due to type 2 diabetes mellitus: (3) Liver cirrhosis: (4) CAD (coronary artery disease): Plan Pt is a 67 yo female with a past medical history of uncontrolled DMT2, liver cirrhosis, CHF, GERD, CAD, HLD, asthma, HTN, hypothyroidism who presents to the hospital on 04/23/22 for pyelonephritis. Continue IV ABs today. Once pt has more clinical improvement, will transition to po ABs in anticipation for DC home. Pyelonephritis - Pyelonephritis present on admission - continue IV ceftriaxone, - cultures pending - IV zofran and po tyelenol for symptom control - Likely came on due to markedly uncontrolled diabetes/glucose urea with her SGLT2 Hyperglycemia due to type 2 diabetes mellitus - See above - suspect her pyelonephritis was largely because of uncontrolled diabetes and excess glucosuria -A1c 13.3 - Titrate basal/bolus insulin management Liver cirrhosis -Almost certainly metabolic/nonalcoholic fatty liver leading to cirrhosis from uncontrolled diabetes. Discussed this with patient from an overview standpoint. Fortunately bilirubin and INR are reassuring. Does show radiographic signs of portal hypertension. CAD (coronary artery disease) - Clinically appears to be stable, continue home meds DVT prophylaxis: Lovenox Admission and Anticipated Discharge Date Admission Date: April 23, 2023 Supervising Physician Co-Signing Physician Notes I personally examined the patient and verified all butler points of history and exam, discussed case, and agree with decision making with Dr Herrera Feeling fatigued. Later had some nausea and flank pain. Vitals noted, in general she is awake and alert pleasant no distress. HEENT normocephalic atraumatic mucous membranes moist. Breathing unlabored no accessory muscle use good effort. Skin shows no rashes no pallor or icterus. Neuro without focal deficits. Pyelonephritisfortunately appears to be improving. Obviously still symptomaticbut quite typical for early recovery from a pyelo. Continue current antibiotics and supportive care. Uncontrolled type 2 diabetesbasal/bolus management while in the hospital, educated extensively on "why to care" ("high sugars clog arteries"), as well as the critical role of lifestyle in the management of type 2 diabetes. Cirrhosisalmost certainly related to diabetes. Fortunately INR and bilirubin are reassuring. Hopefully with better metabolic/lifestyle control she can stabilize this process. DVT proph - lovenox Subjective Pt is a 67 yo female with a past medical history of uncontrolled DMT2, liver cirrhosis, CHF, GERD, CAD, HLD, asthma, HTN, hypothyroidism who presents to the hospital on 04/23/22 for pyelonephritis. Today, pt states she is feeling about the same as yesterday, maybe with a bit less abdominal pain. Later this morning started to have some nausea/vomiting resolved with zofran. She has no questions or complaints at this time. No chest pain, SOB, fever, or chills. Review of Systems Review of Systems: Per HPI. Physical Exam Physical Exam: General:Alert and oriented, no acute distress, HEENT: Normocephalic, moist oral mucosa, Cardio: Regular rate and rhythm, Resp:Lungs clear to auscultation b/l, no wheezes or rhonchi, GI: Soft and nontender, nondistended, bowel sounds active Skin: Warm, pink, dry, Psych: Mood-affect congruence. Results & Data Results & Data Vital Signs (Past 12 Hours) Vital Signs Temp Pulse Pulse Pulse Resp BP BP 04/25/23 02:47 37.5 C 89 18 127/66 04/24/23 22:00 04/24/23 21:49 36.8 C 78 18 123/73 04/24/23 21:27 81 04/24/23 20:00 76 18 116/68 Pulse Ox O2 Del Method O2 Flow Rate 04/25/23 02:47 93 Nasal Cannula 2 04/24/23 22:00 Room Air 04/24/23 21:49 94 Room Air 04/24/23 21:27 04/24/23 20:00 93 Room Air Resident Activity Tracking Resident Involvement: Resident Care Provided Care Provided: Adult Hospital Medicine
[2023-04-25 07:55] LABS: Albumin Globulin Ratio 0.9 (0.9-2); Albumin Level 3.2 gm/dl (3.4-5.0); Bilirubin,Total 0.5 mg/dl (0.2-1.0); Globulin 3.6 gm/dl (2.5-4.0); Total Protein 6.8 gm/dl (6.0-8.3)
[2023-04-25] MEDS: INSULIN ASPART PER UNIT CHARGE SC SCH ×4 (09:14→21:13)
[2023-04-25] MEDS: LANTUS PER UNIT CHARGE SC SCH ×2 (09:15→21:14)
[2023-04-25] MEDS: VENLAFAXINE HCL XR 150 MG CAPXR PO SCH (09:15)
[2023-04-25] MEDS: cefTRIAXone SODIUM 2,000 MG in DEXTROSE 5 % MINI-B 50 ML IV SCH (09:15)
[2023-04-25] MEDS: lisinopril 5 MG TAB PO SCH (09:16)
[2023-04-25] MEDS: PANTOprazole 40 MG TAB PO SCH (09:16)
[2023-04-25] MEDS: ASPIRIN 81 MG ECTAB PO SCH (09:16)
[2023-04-25] MEDS: BACLOFEN 10 MG TAB PO SCH ×2 (09:16→21:15)
[2023-04-25] MEDS: EMPAGLIFLOZIN 25 MG TAB PO SCH (09:16)
[2023-04-25] MEDS: ONDANSETRON INJ 2 MG/ML 2 ML VIAL IV PRN ×2 (12:02→21:11)
[2023-04-25] MEDS ORDERED: ACETAMINOPHEN 1,000 MG/100 ML VIAL IV STA (12:20)
[2023-04-25] MEDS ORDERED: HYDROmorphone INJ 0.5 MG/0.5 ML SYR IV STA ×2 (13:02→21:54)
--- NOTE | 2023-04-25 14:58 | Billing Data ---
Date of Service April 25, 2023 Coding Level of Care Code 69587 SUB INP/OBS CARE
[2023-04-25] MEDS: ATORVASTATIN 20 MG TAB PO SCH (21:16)
[2023-04-25] MEDS: ENOXAPARIN INJ 40 MG/0.4 ML SYR SQ SCH (21:16)
[2023-04-26] MEDS: ONDANSETRON INJ 2 MG/ML 2 ML VIAL IV PRN (03:51)
[2023-04-26] MEDS: LEVOTHYROXINE SODIUM 88 MCG TABLET PO SCH (06:05)
[2023-04-26 06:16] LABS: Basophils # (auto) 0.04 K/uL (0.00-0.20); Basophils % (auto) 0.6 %; Eosinophils # (auto) 0.04 K/uL (0.00-0.50); Eosinophils % (auto) 0.6 %; Hematocrit (blood only) 36.5 % (37.0-47.0); Hemoglobin 11.3 g/dl (12.0-16.0); Immature Granulocytes # (auto) 0.03 K/uL (0.01-0.20); Immature Granulocytes % (auto) 0.4 %; Lymphocytes # (auto) 0.56 K/uL (1.20-3.40); Lymphocytes % (auto) 8.1 %; Mean Corpuscular Hemoglobin 27.4 pg (25.0-34.0); Mean Corpuscular Volume 88.6 fL (80.0-100.0); Mean Platelet Volume 10.9 fL (9.4-12.4); Monocytes # (auto) 1.07 K/uL (0.11-0.59); Monocytes % (auto) 15.5 %; Neutrophils # (auto) 5.16 K/uL (1.40-6.50); Neutrophils % (auto) 74.8 %; Platelet Count 136 K/uL (130-400); RDW Standard Deviation 45.3 fL (36.4-46.3); Red Blood Count 4.12 M/uL (4.20-5.40)
[2023-04-26 06:34] LABS: BUN Creatinine Ratio 18.6 (10-20); Calcium 8.2 mg/dl (8.6-10.3); Creatinine Clr Calc Pharmacy 47.9 ml/min; Est GFR (African American) 65.9 ml/min; Est GFR (Non-African American) 56.9 ml/min; Potassium 3.8 mmol/L (3.5-5.1)
--- NOTE | 2023-04-26 06:50 | Hospitalist Progress Note ---
Date of Service April 26, 2023 Assessment & Plan (1) Pyelonephritis: (2) Hyperglycemia due to type 2 diabetes mellitus: (3) Liver cirrhosis: (4) CAD (coronary artery disease): (5) Nocturnal hypoxia: Plan Pt is a 67 yo female with a past medical history of uncontrolled DMT2, liver cirrhosis, CHF, GERD, CAD, HLD, asthma, HTN, hypothyroidism who presents to the hospital on 04/23/22 for pyelonephritis. Continue IV ABs today, as pt still nauseated with dry heaves. Will switch to oral once pt can tolerate oral intake better. Pyelonephritis - Pyelonephritis present on admission - continue IV ceftriaxone, - cultures pending - IV zofran and po tyelenol for symptom control - Likely came on due to markedly uncontrolled diabetes/glucose urea with her SGLT2 Nausea/vomiting - pt has continued nausea and dry heaves the last 1-2 days - KUB: moderate stool burden, no obstruction - anticipate this is due to pyelo vs constipation or a combo of the two - will do miralax TID YAMIL and continue IV Hyperglycemia due to type 2 diabetes mellitus - See above - suspect her pyelonephritis was largely because of uncontrolled diabetes and excess glucosuria -A1c 13.3 - Titrate basal/bolus insulin management Nocturnal hypoxia - pt required oxygen only overnight - would benefit from sleep study for AUGUST when discharged Liver cirrhosis -Almost certainly metabolic/nonalcoholic fatty liver leading to cirrhosis from uncontrolled diabetes. Discussed this with patient from an overview standpoint. Fortunately bilirubin and INR are reassuring. Does show radiographic signs of portal hypertension. CAD (coronary artery disease) - Clinically appears to be stable, continue home meds DVT prophylaxis: Lovenox Admission and Anticipated Discharge Date Admission Date: April 23, 2023 Supervising Physician Co-Signing Physician Notes I personally examined the patient and verified all butler points of history and exam, discussed case, and agree with decision making with Dr Herrera was more nauseated today. also no BM. attempted to see pt multiple times, sleeping each one. Vitals noted, resting comfortably, appears in no distress. HEENT normocephalic atraumatic mucous membranes moist. Breathing unlabored no accessory muscle use good effort. Skin shows no rashes no pallor or icterus. Neuro without focal deficits at rest. Pyelonephritisfortunately appears to be improving. Obviously still symptomaticbut quite typical for early recovery from a pyelo. Continue current antibiotics and supportive care. i do suspect n/v also from constipation - bowel regimen started Uncontrolled type 2 diabetesbasal/bolus management while in the hospital, have previously educated extensively on "why to care" ("high sugars clog arteries"), as well as the critical role of lifestyle in the management of type 2 diabetes. sugars reasonable today Cirrhosisalmost certainly related to diabetes. Fortunately INR and bilirubin are reassuring. Hopefully with better metabolic/lifestyle control she can stabilize this process. DVT proph - lovenox Subjective Pt is a 67 yo female with a past medical history of uncontrolled DMT2, liver cirrhosis, CHF, GERD, CAD, HLD, asthma, HTN, hypothyroidism who presents to the hospital on 04/23/22 for pyelonephritis. Today, pt states she is still having issues with feeling very nauseated and dry heaving throughout the day. She states she is also still having pain along her left flank to her groin. No fever or chills, no chest pain or SOB. In general she states she feels about the same as yesterday. Review of Systems Review of Systems: Per HPI. Physical Exam Physical Exam: General:Alert and oriented, no acute distress, HEENT: Normocephalic, moist oral mucosa, Cardio: Regular rate and rhythm, Resp:Lungs clear to auscultation b/l, GI: Soft, nondistended, bowel sounds markedly hypoactive Skin: Warm, pink, dry, Psych: Mood-affect congruence. Results & Data Results & Data Vital Signs (Past 12 Hours) Vital Signs Temp Pulse Resp BP Pulse Ox O2 Del Method O2 Flow Rate 04/26/23 04:00 36.8 C 82 18 108/81 95 Nasal Cannula 1 04/26/23 00:49 36.8 C 77 18 104/65 94 Nasal Cannula 1 04/26/23 00:43 36.7 C 80 20 99/62 L 92 Room Air 04/25/23 20:40 Room Air 04/25/23 20:29 37.7 C H 84 20 107/65 92 Room Air Resident Activity Tracking Resident Involvement: Resident Care Provided Care Provided: Adult Hospital Medicine
[2023-04-26] MEDS ORDERED: METOCLOPRAMIDE HCL INJ 5 MG/ML 2 ML VIAL IV ONE (08:09)
[2023-04-26] MEDS: lisinopril 5 MG TAB PO SCH (08:38)
[2023-04-26] MEDS: cefTRIAXone SODIUM 2,000 MG in DEXTROSE 5 % MINI-B 50 ML IV SCH (08:39)
[2023-04-26] MEDS: BACLOFEN 10 MG TAB PO SCH ×2 (08:39→21:00)
[2023-04-26] MEDS: PANTOprazole 40 MG TAB PO SCH (08:39)
[2023-04-26] MEDS: ASPIRIN 81 MG ECTAB PO SCH (08:39)
[2023-04-26] MEDS: LANTUS PER UNIT CHARGE SC SCH ×2 (08:40→20:59)
[2023-04-26] MEDS: EMPAGLIFLOZIN 25 MG TAB PO SCH (08:40)
[2023-04-26] MEDS: VENLAFAXINE HCL XR 150 MG CAPXR PO SCH (08:40)
[2023-04-26] MEDS: INSULIN ASPART PER UNIT CHARGE SC SCH ×4 (10:06→20:59)
--- NOTE | 2023-04-26 10:40 | XRay Report ---
KUB CLINICAL HISTORY: Generalized abdominal pain. FINDINGS: 3 AP, portable, supine abdominal radiographs are correlated with abdominal CT dated 4. There is a nonobstructed abdominal bowel gas pattern. No evidence of intraperitoneal free air is s een on these supine images. There is mild to moderate colonic fecal retention. No abnormal abdominal calcifications are identified. Phleboliths are noted in the pelvis. The skeletal structures are osteo penic and appear intact. There is moderate lumbosacral spondylosis. IMPRESSION: No acute abnormality is identified. Electronically signed by: Sanford Monge M.D. 04/26/2023 10:39 AM
[2023-04-26] MEDS: POLYETHYLENE (MIRALAX) 17 GM PACK PO SCH ×3 (11:15→21:01)
--- NOTE | 2023-04-26 17:33 | Billing Data ---
Date of Service April 26, 2023 Coding Level of Care Code 52902 SUB INP/OBS CARE
[2023-04-26] MEDS: ATORVASTATIN 20 MG TAB PO SCH (20:59)
[2023-04-26] MEDS: ENOXAPARIN INJ 40 MG/0.4 ML SYR SQ SCH (21:01)
[2023-04-27] MEDS: ACETAMINOPHEN 1,000 MG/100 ML VIAL IV PRN ×2 (00:37→21:31)
[2023-04-27] MEDS: ONDANSETRON INJ 2 MG/ML 2 ML VIAL IV PRN ×2 (05:17→16:17)
[2023-04-27] MEDS: LEVOTHYROXINE SODIUM 88 MCG TABLET PO SCH (05:47)
[2023-04-27] MEDS ORDERED: HYDROmorphone INJ 0.5 MG/0.5 ML SYR IV STA (06:27)
--- NOTE | 2023-04-27 07:03 | Hospitalist Progress Note ---
Date of Service April 27, 2023 Assessment & Plan (1) Pyelonephritis: (2) Hyperglycemia due to type 2 diabetes mellitus: (3) Liver cirrhosis: (4) CAD (coronary artery disease): (5) Nocturnal hypoxia: Plan Pt is a 67 yo female with a past medical history of uncontrolled DMT2, liver cirrhosis, CHF, GERD, CAD, HLD, asthma, HTN, hypothyroidism who presents to the hospital on 04/23/22 for pyelonephritis. Continue IV ABs today. Will switch to oral once pt can tolerate oral intake better. Continue current management at this time. If not improving or worsening tomorrow, will consider addition of steroids or further eval. Pt is COVID + via [employer]. Pyelonephritis - Pyelonephritis present on admission - continue IV ceftriaxone, - cultures pending - IV zofran and po tyelenol for symptom control - Likely came on due to markedly uncontrolled diabetes/glucose urea with her SGLT2 Nausea/vomiting - pt has continued nausea and dry heaves the last 1-2 days - KUB: moderate stool burden, no obstruction - anticipate this is due to pyelo vs constipation or a combo of the two - will do miralax TID YAMIL and continue IV Hyperglycemia due to type 2 diabetes mellitus - See above - suspect her pyelonephritis was largely because of uncontrolled diabetes and excess glucosuria -A1c 13.3 - Titrate basal/bolus insulin management Nocturnal hypoxia - pt required oxygen only overnight - would benefit from sleep study for AUGUST when discharged Liver cirrhosis -Almost certainly metabolic/nonalcoholic fatty liver leading to cirrhosis from uncontrolled diabetes. Discussed this with patient from an overview standpoint. Fortunately bilirubin and INR are reassuring. Does show radiographic signs of portal hypertension. CAD (coronary artery disease) - Clinically appears to be stable, continue home meds DVT prophylaxis: Lovenox Admission and Anticipated Discharge Date Admission Date: April 23, 2023 Supervising Physician Co-Signing Physician Notes I personally examined the patient and verified all butler points of history and exam, discussed case, and agree with decision making with Dr Herrera Fevers and generally feels lousy. Ongoing nausea. Has not yet had a bowel movement this year. Vitals noted, resting comfortably, appears in no distress. HEENT normocephalic atraumatic mucous membranes moist. Breathing unlabored no accessory muscle use good effort. Skin shows no rashes no pallor or icterus. Neuro without focal deficits at rest. Pyelonephritisfortunately appears to be improving. Continue ceftriaxoneI suspect from a pyelonephritis standpoint she would actually be well enough to be discharged, but her nausea (may be partly from the pyelonephritis, definitely from constipation, possibly from COVID) is precluding meaningful p.o. i ntake/ability to be okay at home yet. Uncontrolled type 2 diabetesbasal/bolus management while in the hospital, have previously educated extensively on "why to care" ("high sugars clog arteries"), as well as the critical role of lifestyle in the management of type 2 diabetes. sugars Acceptable today Cirrhosisalmost certainly related to diabetes. Fortunately INR and bilirubin are reassuring. Hopefully with better metabolic/lifestyle control she can stabilize this process. COVIDmostly symptomatic, has a mild oxygen requirement but this actually preceded spiking a fever, her chest x-ray/etc. do not appear to be consistent with a viral pneumoniaand I suspect she actually has more atelectasis and sleep apnea as the cause for the oxygen than anything to do with COVID. At this point follow closely. Steroids "by the book" would be indicated because of the oxygen requirementbut again I suspect this is more due to atelectasis and sleep apnea, and given her glycemic control, I feel that steroids would probably be more harm than good unless they are clearly indicated. DVT proph - lovenox Subjective Pt is a 67 yo female with a past medical history of uncontrolled DMT2, liver cirrhosis, CHF, GERD, CAD, HLD, asthma, HTN, hypothyroidism who presents to the hospital on 04/23/22 for pyelonephritis. Today, pt states she is feeling unwell. She states she is very sweaty and just feels fatigued. Still having nausea but no vomiting. No acute questions or concerns at this time. Denies chest pain or SOB. Denies nasal congestion, sore throat, or cough. Review of Systems Review of Systems: Per HPI. Physical Exam Physical Exam: General:Alert and oriented, diaphoretic Cardio: Regular rate and rhythm, Resp:Lungs clear to auscultation b/l, Skin: Warm, pink, dry, Psych: Mood-affect congruence. Results & Data Results & Data Vital Signs (Past 12 Hours) Vital Signs Temp Pulse Resp BP Pulse Ox O2 Del Method O2 Flow Rate 04/27/23 04:00 37.7 C H 88 18 114/69 93 Nasal Cannula 2 04/27/23 01:15 37.3 C 04/26/23 23:30 39.0 C H 87 18 131/74 93 Nasal Cannula 2 04/26/23 20:00 Nasal Cannula 2 Resident Activity Tracking Resident Involvement: Resident Care Provided Care Provided: Adult Hospital Medicine
[2023-04-27 07:28] LABS: Hematocrit (blood only) 34.7 % (37.0-47.0); Hemoglobin 11.4 g/dl (12.0-16.0); Mean Corpuscular Hemoglobin 28.1 pg (25.0-34.0); Mean Corpuscular Hgb Conc 32.9 g/dL (32.0-36.0); Mean Corpuscular Volume 85.5 fL (80.0-100.0); Mean Platelet Volume 10.4 fL (9.4-12.4); Platelet Count 141 K/uL (130-400); RDW Coefficient of Variation 13.9 % (11.5-14.5); RDW Standard Deviation 43.6 fL (36.4-46.3); Red Blood Count 4.06 M/uL (4.20-5.40); White Blood Count 6.56 K/ul (4.8-10.8)
[2023-04-27 07:42] LABS: Albumin Globulin Ratio 0.8 (0.9-2); Albumin Level 3.2 gm/dl (3.4-5.0); BUN Creatinine Ratio 22.2 (10-20); Bilirubin,Total 0.7 mg/dl (0.2-1.0); C Reactive Protein 11.08 mg/dl (0-0.5); Calcium 8.2 mg/dl (8.6-10.3); Creatinine Clr Calc Pharmacy 60.3 ml/min; Est GFR (African American) 87.1 ml/min; Est GFR (Non-African American) 75.2 ml/min; Potassium 3.9 mmol/L (3.5-5.1); Total Protein 7.2 gm/dl (6.0-8.3)
[2023-04-27] MEDS: cefTRIAXone SODIUM 2,000 MG in DEXTROSE 5 % MINI-B 50 ML IV SCH (08:06)
[2023-04-27] MEDS: ASPIRIN 81 MG ECTAB PO SCH (08:07)
[2023-04-27] MEDS: PANTOprazole 40 MG TAB PO SCH (08:07)
[2023-04-27] MEDS: lisinopril 5 MG TAB PO SCH (08:08)
[2023-04-27] MEDS: VENLAFAXINE HCL XR 150 MG CAPXR PO SCH (08:08)
[2023-04-27] MEDS: BACLOFEN 10 MG TAB PO SCH ×2 (08:08→21:16)
[2023-04-27] MEDS: EMPAGLIFLOZIN 25 MG TAB PO SCH (08:09)
[2023-04-27] MEDS: POLYETHYLENE (MIRALAX) 17 GM PACK PO SCH ×3 (08:09→21:11)
[2023-04-27 08:12] LABS: Basophils # (auto) 0.02 K/uL (0.00-0.20); Basophils % (auto) 0.3 %; Immature Granulocytes # (auto) 0.03 K/uL (0.01-0.20); Immature Granulocytes % (auto) 0.5 %; Lymphocytes # (auto) 0.28 K/uL (1.20-3.40); Lymphocytes % (auto) 4.3 %; Monocytes # (auto) 0.18 K/uL (0.11-0.59); Monocytes % (auto) 2.7 %; Neutrophils # (auto) 6.05 K/uL (1.40-6.50); Neutrophils % (auto) 92.2 %; RBC Morphology Unremarkable
[2023-04-27] MEDS: INSULIN ASPART PER UNIT CHARGE SC SCH ×4 (08:54→21:12)
[2023-04-27] MEDS: LANTUS PER UNIT CHARGE SC SCH ×2 (08:56→21:12)
[2023-04-27 10:22] LABS: Adenovirus PCR Not Detected (NotDetected); Bordetella parapertussis PCR Not Detected (NotDetected); Bordetella pertussis PCR Not Detected (NotDetected); Chlamydia pneumoniae PCR Not Detected (NotDetected); Coronavirus 229E PCR Not Detected (NotDetected); Coronavirus HKU1 PCR Not Detected (NotDetected); Coronavirus NL63 PCR Not Detected (NotDetected); Coronavirus OC43PCR Not Detected (NotDetected); Human Metapneumovirus PCR Not Detected (NotDetected); Influenza A PCR Not Detected (NotDetected); Influenza B PCR Not Detected (NotDetected); Mycoplasma pneumoniae PCR Not Detected (NotDetected); Parainfluenza Virus 1 PCR Not Detected (NotDetected); Parainfluenza Virus 2 PCR Not Detected (NotDetected); Parainfluenza Virus 3 PCR Not Detected (NotDetected); Parainfluenza Virus 4 PCR Not Detected (NotDetected); Respiratory Syncytial VirusPCR Not Detected (NotDetected); Rhinovirus/Enterovirus PCR Not Detected (NotDetected)
[2023-04-27 10:34] LABS: Coronavirus CoV-2 (COVID19)PCR DETECTED (NotDetected)
[2023-04-27 10:55] LABS: Lyme Ab IgM w/WB Rflx Negative (Negative)
--- NOTE | 2023-04-27 11:10 | XRay Report ---
XR chest 2V PA/lateral HISTORY: 67 years-old Female Tachycardia, fever, acute tachycardia COMPARISON: 12/21/2020 TECHNIQUE: PA and lateral views of the chest FINDINGS: Cardiomegaly. Prior median sternotomy with cardiac valvular prosthesis. The inferior most sternotomy wire is fractured. Chronic interstitial coarsening. No pneumothorax, pleural effusion or lobar airspa ce consolidation. Chronic interstitial coarsening. Degenerative changes of the shoulders and spine. IMPRESSION: Cardiomegaly without acute process. ACT 112: Negative or not required by law. The above report was generated using voice recognition software. It may contain grammatical, syntax o r spelling errors. Electronically signed by: Solo Harrison M.D. 04/27/2023 11:09 AM
[2023-04-27 12:25] LABS: Appearance Urine Turbid (Clear); Bacteria Urine Automated Negative (Negative); Bilirubin Urine Negative (Negative); Blood Urine 1+ (Negative); Color Urine Dark Yellow; Epithelial Cell Urine Auto >30 /lpf (0-5); Glucose Urine UA 3+ (Negative); Ketones Urine 1+ (Negative); Leukocyte Esterase Urine 2+ (Negative); Nitrite Urine Negative (Negative); Protein Urine 1+ (Negative); Specific Gravity Urine 1.022 (1.000-1.030); Urobilinogen Urine Negative (Negative); WBC Urine Automated >30 /hpf (0-5); pH Urine 5.5 (4.5-7.5)
[2023-04-27 12:52] LABS: Lyme Ab IgG w/WB Rflx Positive (Negative)
[2023-04-27] MEDS ORDERED: DOXYCYCLINE HYCLATE 100 MG in DEXTROSE 5% MINI-B 100 ML IV SCH (14:00)
[2023-04-27] MEDS: LACTATED RINGER'S 1,000 ML IV SCH (17:15)
--- NOTE | 2023-04-27 20:01 | Billing Data ---
Date of Service April 27, 2023 Coding Level of Care Code 35653 SUB INP/OBS CARE
[2023-04-27] MEDS: ENOXAPARIN INJ 40 MG/0.4 ML SYR SQ SCH ×2 (21:11→21:17)
[2023-04-27] MEDS: ATORVASTATIN 20 MG TAB PO SCH (21:16)
[2023-04-28] MEDS: LACTATED RINGER'S 1,000 ML IV SCH ×3 (00:56→23:48)
[2023-04-28] MEDS: ONDANSETRON INJ 2 MG/ML 2 ML VIAL IV PRN ×2 (03:29→09:39)
[2023-04-28] MEDS: LEVOTHYROXINE SODIUM 88 MCG TABLET PO SCH (06:25)
--- NOTE | 2023-04-28 07:39 | Hospitalist Progress Note ---
Date of Service April 28, 2023 Assessment & Plan (1) Pyelonephritis: (2) Hyperglycemia due to type 2 diabetes mellitus: (3) Liver cirrhosis: (4) CAD (coronary artery disease): (5) Nocturnal hypoxia: Plan Pt is a 67 yo female with a past medical history of uncontrolled DMT2, liver cirrhosis, CHF, GERD, CAD, HLD, asthma, HTN, hypothyroidism who presents to the hospital on 04/23/22 for pyelonephritis. Pyelonephritis - Pyelonephritis present on admission - continue IV ceftriaxone, continue IV abx at this time given ongoing nausea/difficulty tolerating PO intake - Urine cx with pinpoint growth on preliminary result, blood cx negative at 24 hours - IV zofran and po tyelenol for symptom control - Likely came on due to markedly uncontrolled diabetes/glucosuria with her SGLT2 Nausea/vomiting - pt has continued nausea, denies recent vomiting - KUB 04/26: moderate stool burden, no obstruction - not relieved despite bowel movement. Continue bowel regimen as needed. - Continue IV zofran as needed Hyperglycemia due to type 2 diabetes mellitus - See above - suspect her pyelonephritis was largely because of uncontrolled diabetes and excess glucosuria -A1c 13.3 - Titrate basal/bolus insulin management Nocturnal hypoxia - pt required oxygen only overnight - would benefit from sleep study for AUGUST when discharged Liver cirrhosis -Almost certainly metabolic/nonalcoholic fatty liver leading to cirrhosis from uncontrolled diabetes. Discussed this with patient from an overview standpoint. Fortunately bilirubin and INR are reassuring. Does show radiographic signs of portal hypertension. CAD (coronary artery disease) - Clinically appears to be stable, continue home meds DVT prophylaxis: Lovenox Admission and Anticipated Discharge Date Admission Date: April 23, 2023 Supervising Physician Co-Signing Physician Notes I personally examined the patient and verified all butler points of history and exam, discussed case, and agree with decision making with Dr Herrera had a BM. does still feel nauseated. feels more or less the same. Vitals noted, resting comfortably, appears in no distress. HEENT normocephalic atraumatic mucous membranes moist. Breathing unlabored no accessory muscle use good effort. Skin shows no rashes no pallor or icterus. Neuro without focal deficits at rest. Pyelonephritisfortunately appears to be improving. Continue ceftriaxoneI suspect from a pyelonephritis standpoint she would actually be well enough to be discharged, but her nausea (may be partly from the pyelonephritis, definitely from constipation, possibly from COVID) is precluding meaningful p.o. intake/ability to be okay at home yet. continue current care Uncontrolled type 2 diabetesbasal/bolus management while in the hospital, have previously educated extensively on "why to care" ("high sugars clog arteries"), as well as the critical role of lifestyle in the management of type 2 diabetes. sugars Acceptable control again today Cirrhosisalmost certainly related to diabetes. Fortunately INR and bilirubin are reassuring. Hopefully with better metabolic/lifestyle control she can stabilize this process. SILVINA has a mild oxygen requirement but this actually preceded spiking a fever, her chest x-ray/etc. do not appear to be consistent with a viral pneumoniaand I suspect she actually has more atelectasis and sleep apnea as the cause for the oxygen than anything to do with COVID. At this point follow closely. Steroids "by the book" would be indicated because of the oxygen requirementbut again I suspect this is more due to atelectasis and sleep apnea, and given her glycemic control, I feel that steroids would probably be more harm than good unless they are clearly indicated. appears slowly improving DVT proph - lovenox Subjective Pt is a 67 yo female with a past medical history of uncontrolled DMT2, liver cirrhosis, CHF, GERD, CAD, HLD, asthma, HTN, hypothyroidism who presents to the hospital on 04/23/22 for pyelonephritis. Pt evaluated at bedside, notes that she has ongoing nausea, has not vomited recently. Also states that Zofran has been helpful, though she still has minimal appetite. Patient had a bowel movement yesterday, states she did not have any change in nausea despite this. Denies SOB but has minimal cough. Denies flank pain. Review of Systems Review of Systems: Per HPI. Physical Exam Constitutional: WD/WN, vitals as above (mildly diaphoretic ) Respiratory: normal respiratory effort, lungs clear to auscultation Cardiovascular: RRR, no murmur, no edema Skin: no rashes, warm and dry Psychiatric: A+Ox3, euthymic affect Results & Data Results & Data Vital Signs (Past 12 Hours) Vital Signs Temp Pulse Pulse Resp BP Pulse Ox O2 Del Method 04/28/23 04:11 36.5 C 79 17 97/57 L 94 Nasal Cannula 04/28/23 01:03 78 04/28/23 00:19 37.6 C H 79 18 108/70 95 Room Air 04/27/23 21:00 Nasal Cannula 04/27/23 20:33 37.3 C 75 18 107/65 97 Nasal Cannula O2 Flow Rate 04/28/23 04:11 3 04/28/23 01:03 04/28/23 00:19 04/27/23 21:00 3 04/27/23 20:33 3 Resident Activity Tracking Resident Involvement: Resident Care Provided Care Provided: Adult Hospital Medicine
[2023-04-28 08:54] LABS: Basophils # (auto) 0.02 K/uL (0.00-0.20); Basophils % (auto) 0.2 %; Eosinophils # (auto) 0.03 K/uL (0.00-0.50); Eosinophils % (auto) 0.3 %; Hematocrit (blood only) 32.9 % (37.0-47.0); Hemoglobin 10.6 g/dl (12.0-16.0); Immature Granulocytes # (auto) 0.05 K/uL (0.01-0.20); Immature Granulocytes % (auto) 0.5 %; Lymphocytes # (auto) 1.07 K/uL (1.20-3.40); Lymphocytes % (auto) 10.2 %; Mean Corpuscular Hemoglobin 27.6 pg (25.0-34.0); Mean Corpuscular Hgb Conc 32.2 g/dL (32.0-36.0); Mean Corpuscular Volume 85.7 fL (80.0-100.0); Mean Platelet Volume 11.3 fL (9.4-12.4); Monocytes # (auto) 1.39 K/uL (0.11-0.59); Monocytes % (auto) 13.2 %; Neutrophils # (auto) 7.94 K/uL (1.40-6.50); Neutrophils % (auto) 75.6 %; Platelet Count 122 K/uL (130-400); Red Blood Count 3.84 M/uL (4.20-5.40)
[2023-04-28 08:58] LABS: Albumin Globulin Ratio 0.8 (0.9-2); Albumin Level 2.9 gm/dl (3.4-5.0); BUN Creatinine Ratio 20.8 (10-20); Bilirubin,Total 0.6 mg/dl (0.2-1.0); Calcium 8.3 mg/dl (8.6-10.3); Creatinine Clr Calc Pharmacy 46.8 ml/min; Est GFR (African American) 62.9 ml/min; Est GFR (Non-African American) 54.3 ml/min; Globulin 3.7 gm/dl (2.5-4.0); Potassium 4.2 mmol/L (3.5-5.1); Total Protein 6.6 gm/dl (6.0-8.3)
[2023-04-28] MEDS: PANTOprazole 40 MG TAB PO SCH (09:30)
[2023-04-28] MEDS: ASPIRIN 81 MG ECTAB PO SCH (09:30)
[2023-04-28] MEDS: BACLOFEN 10 MG TAB PO SCH ×2 (09:30→22:23)
[2023-04-28] MEDS: VENLAFAXINE HCL XR 150 MG CAPXR PO SCH (09:30)
[2023-04-28] MEDS: lisinopril 5 MG TAB PO SCH (09:30)
[2023-04-28] MEDS: EMPAGLIFLOZIN 25 MG TAB PO SCH (09:30)
[2023-04-28] MEDS: POLYETHYLENE (MIRALAX) 17 GM PACK PO SCH ×3 (09:31→22:23)
[2023-04-28] MEDS: cefTRIAXone SODIUM 2,000 MG in DEXTROSE 5 % MINI-B 50 ML IV SCH (09:31)
[2023-04-28] MEDS: INSULIN ASPART PER UNIT CHARGE SC SCH ×4 (09:32→21:21)
[2023-04-28] MEDS: LANTUS PER UNIT CHARGE SC SCH ×2 (10:28→21:22)
--- NOTE | 2023-04-28 17:42 | Billing Data ---
Date of Service April 28, 2023 Coding Level of Care Code 41744 SUB INP/OBS CARE
[2023-04-28] MEDS: ATORVASTATIN 20 MG TAB PO SCH (22:23)
[2023-04-28] MEDS ORDERED: IBUPROFEN 200 MG TAB PO STA (22:58)
[2023-04-29] MEDS: LEVOTHYROXINE SODIUM 88 MCG TABLET PO SCH (05:19)
--- NOTE | 2023-04-29 07:42 | Hospitalist Progress Note ---
Date of Service April 29, 2023 Assessment & Plan (1) SIRS (systemic inflammatory response syndrome): (2) Pyelonephritis: (3) Hyperglycemia due to type 2 diabetes mellitus: (4) Liver cirrhosis: (5) CAD (coronary artery disease): (6) Nocturnal hypoxia: Plan Pt is a 67 yo female with a past medical history of uncontrolled DMT2, liver cirrhosis, CHF, GERD, CAD, HLD, asthma, HTN, hypothyroidism who presents to the hospital on 04/23/22 for pyelonephritis. SIRS/ Sepsis/ Pneumonia: - Pt developed new onset recurrence of fever of 39C, tachycardic with HR and 97, mildly tachypneic with RR 20, suspicious for secondary infection with pulmonary source - CXR 04/29 significant for patchy bibasilar airspace opacities, likely pneumonia - Repeat blood cultures pending - Transition Ceftriaxone to Cefepime for extended gram negative coverage - MRSA nares ordered, add MRSA coverage if positive - Tylenol prn for fever Pyelonephritis - Pyelonephritis present on admission - Ceftriaxone discontinued, start Cefepime - Urine cx with pinpoint growth on preliminary result, initial blood cx negative at 24 hours - IV zofran and po tyelenol for symptom control - Likely came on due to markedly uncontrolled diabetes/glucosuria with her SGLT2 Nausea/vomiting - pt has continued nausea, denies recent vomiting - KUB 04/26: moderate stool burden, no obstruction - pt since had bowel movement. Continue bowel regimen as needed. - Continue IV zofran as needed - Resolved as of 04/29 Hyperglycemia due to type 2 diabetes mellitus - See above - suspect her pyelonephritis was largely because of uncontrolled diabetes and excess glucosuria -A1c 13.3 - Titrate basal/bolus insulin management Nocturnal hypoxia - pt required oxygen only overnight - would benefit from sleep study for AUGUST when discharged Liver cirrhosis -Almost certainly metabolic/nonalcoholic fatty liver leading to cirrhosis from uncontrolled diabetes. Discussed this with patient from an overview standpoint. Fortunately bilirubin and INR are reassuring. Does show radiographic signs of portal hypertension. CAD (coronary artery disease) - Clinically appears to be stable, continue home meds DVT prophylaxis: Lovenox Admission and Anticipated Discharge Date Admission Date: April 23, 2023 Supervising Physician Co-Signing Physician Notes I personally examined the patient and verified all butler points of history and exam, discussed case, and agree with decision making with Dr Herrera was feeling better but then sudden fever and rigors. no focal symptoms otherwise. Vitals noted, laying on her side with active rigors. HEENT normocephalic atraumatic mucous membranes moist. lungs show scattered rales/rhonchi worse L and different than prior exam. Pyelonephritisreason for admission. improving. was on ceftriaxone for this - broadening abx coverage for pneumonia -but cefepime will also suffice in this respect pneumonia - developing today - based on new rigors, worse fever (could try to attribute to covid, but since she was improving and hadn't had fever for ~48hrs hard to feel that fits) - CXR - new infiltrate - assume pneumonia that grew in spite of ceftriaxone --> cefepime to broaden gram negative coverage, MRSA nares and vanco if (+) Uncontrolled type 2 diabetesbasal/bolus management while in the hospital, have previously educated extensively on "why to care" ("high sugars clog arteries"), as well as the critical role of lifestyle in the management of type 2 diabetes. sugars sugars remain acceptable inpatient Cirrhosisalmost certainly related to diabetes. Fortunately INR and bilirubin are reassuring. Hopefully with better metabolic/lifestyle control she can stabilize this process. SILVINA has a mild oxygen requirement but this actually preceded spiking a fever, her chest x-ray/etc. do not appear to be consistent with a viral pneumoniaand I suspect she actually has more atelectasis and sleep apnea as the cause for the oxygen than anything to do with COVID. At this point follow closely. suspect pneumonia typical rather than viral given her appearance/progression/pattern on CXR DVT proph - lovenox Subjective Pt is a 67 yo female with a past medical history of uncontrolled DMT2, liver cirrhosis, CHF, GERD, CAD, HLD, asthma, HTN, hypothyroidism who presents to the hospital on 04/23/22 for pyelonephritis. Pt evaluated at bedside, initially noted that she feeling much better today, has more energy, denies nausea/vomiting, denies SOB and tolerating room air. Denies flank pain. Patient later developed fever of 39 C and chills. Review of Systems Review of Systems: Per HPI. Physical Exam Constitutional: WD/WN, vitals as above Respiratory: normal respiratory effort, lungs clear to auscultation Cardiovascular: RRR, no murmur, no edema Skin: no rashes, warm and dry Psychiatric: A+Ox3, euthymic affect Results & Data Results & Data Vital Signs (Past 12 Hours) Vital Signs Temp Pulse Pulse Resp BP BP Pulse Ox 04/29/23 03:18 36.5 C 68 17 101/57 L 95 04/29/23 02:12 79 04/28/23 22:55 37.1 C 77 17 117/70 97 04/28/23 21:00 O2 Del Method O2 Flow Rate 04/29/23 03:18 Nasal Cannula 3 04/29/23 02:12 04/28/23 22:55 Nasal Cannula 3 04/28/23 21:00 Nasal Cannula 3 Resident Activity Tracking Resident Involvement: Resident Care Provided Care Provided: Adult Hospital Medicine
[2023-04-29 08:00] LABS: Basophils # (auto) 0.02 K/uL (0.00-0.20); Basophils % (auto) 0.3 %; Eosinophils % (auto) 1.6 %; Hematocrit (blood only) 33.3 % (37.0-47.0); Hemoglobin 10.4 g/dl (12.0-16.0); Immature Granulocytes # (auto) 0.03 K/uL (0.01-0.20); Immature Granulocytes % (auto) 0.5 %; Lymphocytes # (auto) 0.87 K/uL (1.20-3.40); Lymphocytes % (auto) 14.2 %; Mean Corpuscular Hemoglobin 27.4 pg (25.0-34.0); Mean Corpuscular Hgb Conc 31.2 g/dL (32.0-36.0); Mean Corpuscular Volume 87.9 fL (80.0-100.0); Mean Platelet Volume 11.4 fL (9.4-12.4); Monocytes # (auto) 0.84 K/uL (0.11-0.59); Monocytes % (auto) 13.7 %; Neutrophils # (auto) 4.25 K/uL (1.40-6.50); Neutrophils % (auto) 69.7 %; Platelet Count 117 K/uL (130-400); RDW Coefficient of Variation 14.3 % (11.5-14.5); Red Blood Count 3.79 M/uL (4.20-5.40); White Blood Count 6.11 K/ul (4.8-10.8)
[2023-04-29 08:21] LABS: Albumin Globulin Ratio 0.8 (0.9-2); Albumin Level 2.7 gm/dl (3.4-5.0); Bilirubin,Total 0.4 mg/dl (0.2-1.0); Calcium 8.3 mg/dl (8.6-10.3); Est GFR (African American) 79.9 ml/min; Est GFR (Non-African American) 68.9 ml/min; Globulin 3.6 gm/dl (2.5-4.0); Potassium 3.7 mmol/L (3.5-5.1); Total Protein 6.3 gm/dl (6.0-8.3)
[2023-04-29] MEDS: VENLAFAXINE HCL XR 150 MG CAPXR PO SCH (09:42)
[2023-04-29] MEDS: BACLOFEN 10 MG TAB PO SCH ×2 (09:42→21:15)
[2023-04-29] MEDS: lisinopril 5 MG TAB PO SCH (09:42)
[2023-04-29] MEDS: ASPIRIN 81 MG ECTAB PO SCH (09:42)
[2023-04-29] MEDS: POLYETHYLENE (MIRALAX) 17 GM PACK PO SCH ×3 (09:42→21:16)
[2023-04-29] MEDS: PANTOprazole 40 MG TAB PO SCH (09:42)
[2023-04-29] MEDS: cefTRIAXone SODIUM 2,000 MG in DEXTROSE 5 % MINI-B 50 ML IV SCH (09:42)
[2023-04-29] MEDS: EMPAGLIFLOZIN 25 MG TAB PO SCH (09:42)
[2023-04-29] MEDS: INSULIN ASPART PER UNIT CHARGE SC SCH ×4 (10:11→21:11)
[2023-04-29] MEDS: LANTUS PER UNIT CHARGE SC SCH ×2 (10:12→21:11)
[2023-04-29] MEDS ORDERED: ACETAMINOPHEN 1,000 MG/100 ML VIAL IV PRN (11:16)
[2023-04-29] MEDS ORDERED: ACETAMINOPHEN 1,000 MG/100 ML VIAL IV STA (11:22)
[2023-04-29] MEDS ORDERED: ACETAMINOPHEN 325 MG TAB PO PRN (11:23)
--- NOTE | 2023-04-29 12:39 | XRay Report ---
XR chest 2V PA/lateral HISTORY: covid, new fever/rhonchi - ?developing LLL infiltr COMPARISON: Chest 04/27/2023. FINDINGS: No pneumothorax. No pleural effusions. The heart remains mildly enlarged. There are postste rnotomy changes and an aortic valve prosthesis again noted. Chronic interstitial thickening persists. Small linear density within the right lower lobe favors subsegmental atelectasis. Patchy airspace op acities within the lung bases have progressed in the interval. This is best seen on the lateral view. No evidence for pulmonary edema. IMPRESSION: Patchy bibasilar airspace opacities which have progressed in the interval. This likely represents a p neumonia. ACT 112: Negative or not required by law. Electronically signed by: Jaycob Altman M.D. 04/29/2023 12:36 PM
[2023-04-29] MEDS: LACTATED RINGER'S 1,000 ML IV SCH ×2 (15:19→21:13)
[2023-04-29] MEDS: CEFEPIME 2,000 MG in SYRINGE 0 ML IV SCH (15:34)
--- NOTE | 2023-04-29 20:32 | Billing Data ---
Date of Service April 29, 2023 Coding Level of Care Code 76069 SUB INP/OBS CARE MIN
[2023-04-29] MEDS: ATORVASTATIN 20 MG TAB PO SCH (21:15)
[2023-04-29] MEDS: ENOXAPARIN INJ 40 MG/0.4 ML SYR SQ SCH (21:16)
[2023-04-29] MEDS: ONDANSETRON INJ 2 MG/ML 2 ML VIAL IV PRN (21:17)
[2023-04-30] MEDS: CEFEPIME 2,000 MG in SYRINGE 0 ML IV SCH ×2 (03:27→13:49)
[2023-04-30] MEDS: LACTATED RINGER'S 1,000 ML IV SCH (05:37)
[2023-04-30] MEDS: LEVOTHYROXINE SODIUM 88 MCG TABLET PO SCH (05:37)
[2023-04-30 06:31] LABS: Basophils # (auto) 0.03 K/uL (0.00-0.20); Basophils % (auto) 0.4 %; Eosinophils # (auto) 0.13 K/uL (0.00-0.50); Eosinophils % (auto) 1.7 %; Hematocrit (blood only) 28.9 % (37.0-47.0); Hemoglobin 9.5 g/dl (12.0-16.0); Immature Granulocytes # (auto) 0.04 K/uL (0.01-0.20); Immature Granulocytes % (auto) 0.5 %; Lymphocytes # (auto) 0.91 K/uL (1.20-3.40); Lymphocytes % (auto) 11.8 %; Mean Corpuscular Hgb Conc 32.9 g/dL (32.0-36.0); Mean Corpuscular Volume 85.3 fL (80.0-100.0); Mean Platelet Volume 11.3 fL (9.4-12.4); Monocytes # (auto) 1.11 K/uL (0.11-0.59); Monocytes % (auto) 14.4 %; Neutrophils # (auto) 5.49 K/uL (1.40-6.50); Neutrophils % (auto) 71.2 %; Platelet Count 110 K/uL (130-400); RDW Coefficient of Variation 14.2 % (11.5-14.5); RDW Standard Deviation 44.2 fL (36.4-46.3); Red Blood Count 3.39 M/uL (4.20-5.40); White Blood Count 7.71 K/ul (4.8-10.8)
[2023-04-30 06:48] LABS: Albumin Globulin Ratio 0.8 (0.9-2); Albumin Level 2.6 gm/dl (3.4-5.0); BUN Creatinine Ratio 19.3 (10-20); Bilirubin,Total 0.5 mg/dl (0.2-1.0); Calcium 8.1 mg/dl (8.6-10.3); Creatinine Clr Calc Pharmacy 59.5 ml/min; Est GFR (African American) 84.6 ml/min; Globulin 3.4 gm/dl (2.5-4.0); Potassium 3.7 mmol/L (3.5-5.1)
--- NOTE | 2023-04-30 07:19 | Hospitalist Progress Note ---
Date of Service April 30, 2023 Assessment & Plan (1) SIRS (systemic inflammatory response syndrome): (2) Pyelonephritis: (3) Hyperglycemia due to type 2 diabetes mellitus: (4) Liver cirrhosis: (5) CAD (coronary artery disease): (6) Nocturnal hypoxia: Plan Pt is a 67 yo female with a past medical history of uncontrolled DMT2, liver cirrhosis, CHF, GERD, CAD, HLD, asthma, HTN, hypothyroidism who presents to the hospital on 04/23/22 for pyelonephritis. SIRS/ Sepsis/ Pneumonia: - new onset recurrence of fever of 39C, tachycardic with HR and 97, mildly tachypneic with RR 20, suspicious for secondary infection with pulmonary source - CXR 04/29 significant for patchy bibasilar airspace opacities, likely pneumonia - Repeat blood cultures: negative for 24 hrs - Transition Ceftriaxone to Cefepime to extended coverage - MRSA nares: negative - Tylenol prn for fever Hypoxia: -Increase requirement during this admission -Continue O supplementation, keep Oxygen saturation Pyelonephritis - Pyelonephritis present on admission - Urine cx with Gram positive cocci - Ceftriaxone switch to Cefepime - IV zofran and po Tylenol for symptom control Nausea/vomiting - pt has continued nausea, denies recent vomiting - KUB 04/26: moderate stool burden, no obstruction - pt since had bowel movement. Continue bowel regimen as needed. - Continue IV zofran as needed Hyperglycemia due to type 2 diabetes mellitus - See above - suspect her pyelonephritis was largely because of uncontrolled diabetes and excess glucosuria -A1c 13.3 - Titrate basal/bolus insulin management Liver cirrhosis -Almost certainly metabolic/nonalcoholic fatty liver leading to cirrhosis from uncontrolled diabetes. - bilirubin and INR CAD (coronary artery disease) - Clinically appears to be stable, continue home meds DVT prophylaxis: Lovenox Diet: DM 2 Code: Full code Disposition: Med/ Surg with telemetry Admission and Anticipated Discharge Date Admission Date: April 23, 2023 Supervising Physician Co-Signing Physician Notes Attending Physician Supervision Note: I independently interviewed and examined the patient and verified the butler history and physical, reviewed labs and image studies and agree with findings and care plan noted above. no concerns. Sitting in chair without any distress. Vitals noted. HEENT normocephalic atraumatic mucous membranes moist. lungs clear. Pyelonephritisreason for admission. improving. was on ceftriaxone for this - broadening abx coverage for pneumonia -but cefepime will also suffice in this respect pneumonia - based on new rigors, worse fever, CXR - new infiltrate - assumed pneumonia that grew in spite of ceftriaxone --> cefepime to broaden gram negative coverage, MRSA nares neg. -no further fever. continue cefepime. Hypoxia - wean oxygen as able. will also d/c ivf. COVID symptomatic treatment. Uncontrolled type 2 diabetessugars remain acceptable inpatient Cirrhosis stable. DVT proph - lovenox Subjective Pt is a 67 yo female with a past medical history of uncontrolled DMT2, liver cirrhosis, CHF, GERD, CAD, HLD, asthma, HTN, hypothyroidism who presents to the hospital on 04/23/22 for pyelonephritis. Pt evaluated at bedside this AM, feeling better. Denied any SOB, chills, cough, vomiting. She is tolerating room air. Denies flank pain. No fever in the las 24 hours. She had nausea last night but Zofran resolved the symtoms Review of Systems Review of Systems: as per HPI Physical Exam Constitutional: WD/WN, vitals as above Respiratory: normal respiratory effort, lungs clear to auscultation Cardiovascular: RRR, no murmur, no edema Gastrointestinal (Abdomen): normal bowel sounds, soft, nontender, no hepatosplenomegaly Results & Data Results & Data Vital Signs (Past 12 Hours) Vital Signs Temp Pulse Pulse Resp BP Pulse Ox O2 Del Method 04/30/23 03:47 70 04/30/23 03:00 37.0 C 66 16 116/72 96 Nasal Cannula 04/29/23 23:36 37.1 C 72 19 114/70 96 Room Air 04/29/23 21:00 Nasal Cannula 04/29/23 19:57 37.0 C 71 18 107/63 97 Nasal Cannula O2 Flow Rate 04/30/23 03:47 04/30/23 03:00 3 04/29/23 23:36 04/29/23 21:00 3 04/29/23 19:57 3 Resident Activity Tracking Resident Involvement: Resident Care Provided Care Provided: Adult Hospital Medicine
[2023-04-30] MEDS: lisinopril 5 MG TAB PO SCH (10:04)
[2023-04-30] MEDS: VENLAFAXINE HCL XR 150 MG CAPXR PO SCH (10:05)
[2023-04-30] MEDS: PANTOprazole 40 MG TAB PO SCH (10:05)
[2023-04-30] MEDS: BACLOFEN 10 MG TAB PO SCH ×2 (10:05→22:33)
[2023-04-30] MEDS: ASPIRIN 81 MG ECTAB PO SCH (10:05)
[2023-04-30] MEDS: POLYETHYLENE (MIRALAX) 17 GM PACK PO SCH ×3 (10:06→22:28)
[2023-04-30] MEDS: EMPAGLIFLOZIN 25 MG TAB PO SCH (10:06)
[2023-04-30] MEDS: INSULIN ASPART PER UNIT CHARGE SC SCH ×4 (10:35→22:25)
[2023-04-30] MEDS: LANTUS PER UNIT CHARGE SC SCH ×2 (10:36→22:25)
[2023-04-30] MEDS: ATORVASTATIN 20 MG TAB PO SCH (22:33)
[2023-04-30] MEDS: ENOXAPARIN INJ 40 MG/0.4 ML SYR SQ SCH (22:33)
[2023-05-01] MEDS: CEFEPIME 2,000 MG in SYRINGE 0 ML IV SCH (02:38)
[2023-05-01 03:52] LABS: Babesia microti DNA Not Detected (Not Detected)
[2023-05-01] MEDS: LEVOTHYROXINE SODIUM 88 MCG TABLET PO SCH (05:56)
[2023-05-01 08:36] LABS: Hematocrit (blood only) 33.2 % (37.0-47.0); Hemoglobin 10.3 g/dl (12.0-16.0); Mean Corpuscular Volume 87.1 fL (80.0-100.0); Mean Platelet Volume 11.1 fL (9.4-12.4); Platelet Count 148 K/uL (130-400); RDW Coefficient of Variation 14.1 % (11.5-14.5); RDW Standard Deviation 45.5 fL (36.4-46.3); Red Blood Count 3.81 M/uL (4.20-5.40); White Blood Count 6.49 K/ul (4.8-10.8)
[2023-05-01 08:50] LABS: Albumin Globulin Ratio 0.7 (0.9-2); Albumin Level 2.7 gm/dl (3.4-5.0); BUN Creatinine Ratio 15.7 (10-20); Bilirubin,Total 0.4 mg/dl (0.2-1.0); Calcium 8.2 mg/dl (8.6-10.3); Creatinine Clr Calc Pharmacy 57.4 ml/min; Est GFR (African American) 77.7 ml/min; Est GFR (Non-African American) 67.1 ml/min; Globulin 3.7 gm/dl (2.5-4.0); Potassium 3.6 mmol/L (3.5-5.1); Total Protein 6.4 gm/dl (6.0-8.3)
[2023-05-01] MEDS: ASPIRIN 81 MG ECTAB PO SCH (09:47)
[2023-05-01] MEDS: VENLAFAXINE HCL XR 150 MG CAPXR PO SCH (09:47)
[2023-05-01] MEDS: lisinopril 5 MG TAB PO SCH (09:47)
[2023-05-01] MEDS: BACLOFEN 10 MG TAB PO SCH (09:47)
[2023-05-01] MEDS: EMPAGLIFLOZIN 25 MG TAB PO SCH (09:47)
[2023-05-01] MEDS: INSULIN ASPART PER UNIT CHARGE SC SCH (09:47)
[2023-05-01] MEDS: PANTOprazole 40 MG TAB PO SCH (09:47)
[2023-05-01 09:57] LABS: Basophils # (auto) 0.03 K/uL (0.00-0.20); Basophils % (auto) 0.5 %; Eosinophils # (auto) 0.14 K/uL (0.00-0.50); Eosinophils % (auto) 2.2 %; Immature Granulocytes # (auto) 0.08 K/uL (0.01-0.20); Immature Granulocytes % (auto) 1.2 %; Lymphocytes # (auto) 1.28 K/uL (1.20-3.40); Lymphocytes % (auto) 19.7 %; Monocytes % (auto) 13.9 %; Neutrophils # (auto) 4.06 K/uL (1.40-6.50); Neutrophils % (auto) 62.5 %
[2023-05-01] MEDS: LANTUS PER UNIT CHARGE SC SCH (09:59)
[2023-05-01] MEDS: POLYETHYLENE (MIRALAX) 17 GM PACK PO SCH (10:00)
--- NOTE | 2023-05-01 11:01 | Discharge Summary ---
Date of Service May 01, 2023 Admission HPI Per Admitting Provider The patient is a 67-year-old female with a past medical history including CHF, pleural effusion, ASD closure, aortic valve replacement, CABG x 3, GERD, CAD, moderate MR, asthma, depression, hypertension, hypothyroidism, hypercholesterolemia and diabetes mellitus. She presented to the emergency department with left flank pain that began earlier in the day today. She reports that her sugars have been more significantly more elevated than usual due to inappropriate diet over the holidays. She has persistent balance problems and walking due to peripheral neuropathy Admission Exam Per Admitting Provider The patient is awake, alert and oriented 3, well developed and well nourished, normocephalic and atraumatic, lying in bed and in no acute distress. HEENT--PERRL, EOMI, mucous membranes and oropharynx dry. Neck--supple. No JVD. No bruits. Thyroid normal, trachea midline, no adenopathy. Heart--normal S1 and S2. No murmurs, rubs or gallops. Lungs--clear bilaterally, no respiratory distress, no accessory muscle use. Abdomen--normal bowel sounds and soft. Nontender. Nondistended, no hernias or masses, no organomegaly. Extremities-- No edema. Dermatologic--normal skin turgor, normal color, no abnormal lymph nodes, no rash. Neurologic--cranial nerves II through XII grossly intact. Rheumatologic--normal range of motion. Psychiatric--normal affect. Principal Diagnosis Pyelonephritis Discharge Exam Constitutional WD/WN, vitals as above Respiratory normal respiratory effort, lungs clear to auscultation Cardiovascular RRR, no murmur, no edema Gastrointestinal (Abdomen) normal bowel sounds, soft, nontender, no hepatosplenomegaly Skin no rashes, warm and dry Discharge Data Allergies Allergy/AdvReac Type Severity Reaction Status Date / Time Penicillins Allergy Intermediate CAN'T Verified 04/23/23 18:18 REMEMBER Tetanus Vaccines and Toxoid Allergy Mild ARM Verified 12/12/22 12:22 SWELLING-HOT TO TOUCH Consultations 04/23/23 19:22 ED Decision to Admit Stat Ordered Studies Microbiology 04/29/23 11:45 Blood Aerobic Blood Culture - Preliminary No growth in Aerobic bottle after 48 hours. 04/29/23 11:45 Blood Anaerobic Blood Culture - Preliminary No growth in Anaerobic bottle after 48 hours. 04/29/23 11:39 Blood Aerobic Blood Culture - Preliminary No growth in Aerobic bottle after 48 hours. 04/29/23 11:39 Blood Anaerobic Blood Culture - Preliminary No growth in Anaerobic bottle after 48 hours. 04/27/23 11:40 Urine,Clean Catch Urine Culture - Final Yeast not Juliana albicans/dub Enterococcus faecium 04/27/23 09:58 Blood Aerobic Blood Culture - Preliminary No growth in Aerobic bottle after 48 hours. 04/27/23 09:58 Blood Anaerobic Blood Culture - Preliminary No growth in Anaerobic bottle after 48 hours. 04/27/23 09:51 Blood Aerobic Blood Culture - Preliminary No growth in Aerobic bottle after 48 hours. 04/27/23 09:51 Blood Anaerobic Blood Culture - Preliminary No growth in Anaerobic bottle after 48 hours. 04/23/23 15:50 Urine,Clean Catch Urine Culture - Final Escherichia coli Escherichia coli#2 Labs 04/23/23 04/23/23 04/23/23 15:50 15:56 20:14 WBC 9.92 RBC 4.53 Hgb 12.6 Hct 37.7 MCV 83.2 MCH 27.8 MCHC 33.4 RDW Std Deviation 39.8 RDW Coeff of [place] 13.1 Plt Count 161 MPV 10.6 Immature Gran % (Auto) 0.4 Neut % (Auto) 80.7 Lymph % (Auto) 8.7 [place] % (Auto) 8.5 Eos % (Auto) 1.1 Baso % (Auto) 0.6 Neut # (Auto) 8.01 H Lymph # (Auto) 0.86 L [place] # (Auto) 0.84 H Eos # (Auto) 0.11 Baso # (Auto) 0.06 Immature Gran # (Auto) 0.04 RBC Morphology Sodium 132 L Potassium 4.3 Chloride 98 Carbon Dioxide 25 Anion Gap 9 BUN 13 Creatinine 0.80 Est Cr Clr Drug Dosing Not Reportable Est GFR ( Amer) 88.4 Est GFR (Non-Af Amer) 76.3 BUN/Creatinine Ratio 16.3 Glucose 448 H* POC Glucose 395 H* Estimat Average Glucose Hemoglobin A1c Calcium 8.9 Magnesium Total Bilirubin 0.5 AST 26 ALT 21 Alkaline Phosphatase 192 H C-Reactive Protein Total Protein 7.9 Albumin 3.7 Globulin 4.2 H Albumin/Globulin Ratio 0.9 Procalcitonin Urine Color Yellow Urine Appearance Clear Urine pH 6.0 Ur Specific [place] 1.024 Urine Protein Negative Urine Glucose (UA) 3+ H Urine Ketones Trace H Urine Blood 2+ H Urine Nitrite Positive A Urine Bilirubin Negative Urine Urobilinogen Negative Ur Leukocyte Esterase 1+ H Urine WBC (Auto) >30 H Urine RBC (Auto) 0-4 U Hyaline Cast (Auto) 0 U Epithel Cells (Auto) 10-20 H Urine Bacteria (Auto) 4+ H Urine Yeast Nasal Screen MRSA (PCR) Adenovirus (PCR) Anaplasma Smear Babesia Smear Babesia microti DNA PCR B. pertussis DNA (PCR) B.parapertussis DNA PCR Lyme Disease IgG Ab Lyme IgG (Western Blot) Lyme IgG 18 kDa Band Lyme IgG 23 kDa Band Lyme IgG 28 kDa Band Lyme IgG 30 kDa Band Lyme IgG 39 kDa Band Lyme IgG 41 kDa Band Lyme IgG 45 kDa Band Lyme IgG 58 kDa Band Lyme IgG 66 kDa Band Lyme IgG 93 kDa Band Lyme IgM Ab (WB) Lyme Disease IgM Ab Lyme IgM 23 kDa Band Lyme IgM 39 kDa Band Lyme IgM 41 kDa Band C. pneumoniae DNA (PCR) Coronavirus OC43 (PCR) Coronavirus HKU1 (PCR) Coronavirus 229E (PCR) SARS-CoV-2 (PCR) Coronavirus NL63 (PCR) Human Metapneumovir PCR Influenza Type A (PCR) Influenza Type B (PCR) M. pneumoniae (PCR) Parainfluenza 1 (PCR) Parainfluenza 2 (PCR) Parainfluenza 3 (PCR) Parainfluenza 4 (PCR) RSV (PCR) Entero/Rhino (PCR) 04/23/23 04/24/23 04/24/23 22:31 00:45 03:29 WBC 12.58 H RBC 4.19 L Hgb 11.6 L Hct 36.0 L MCV 85.9 MCH 27.7 MCHC 32.2 RDW Std Deviation 42.4 RDW Coeff of [place] 13.4 Plt Count 169 MPV 10.6 Immature Gran % (Auto) 0.5 Neut % (Auto) 74.4 Lymph % (Auto) 12.6 [place] % (Auto) 11.1 Eos % (Auto) 0.9 Baso % (Auto) 0.5 Neut # (Auto) 9.36 H Lymph # (Auto) 1.59 [place] # (Auto) 1.40 H Eos # (Auto) 0.11 Baso # (Auto) 0.06 Immature Gran # (Auto) 0.06 RBC Morphology Sodium 135 L Potassium 3.8 Chloride 102 Carbon Dioxide 26 Anion Gap 7 BUN 15 Creatinine 0.94 Est Cr Clr Drug Dosing 52.1 Est GFR ( Amer) 72.8 Est GFR (Non-Af Amer) 62.8 BUN/Creatinine Ratio 16.0 Glucose 237 H POC Glucose 384 H* 334 H* Estimat Average Glucose 335 Hemoglobin A1c 13.3 H Calcium 8.3 L Magnesium 1.7 Total Bilirubin 0.4 AST 17 ALT 17 Alkaline Phosphatase 116 H C-Reactive Protein Total Protein 7.1 Albumin 3.3 L Globulin 3.8 Albumin/Globulin Ratio 0.9 Procalcitonin Urine Color Urine Appearance Urine pH Ur Specific [place] Urine Protein Urine Glucose (UA) Urine Ketones Urine Blood Urine Nitrite Urine Bilirubin Urine Urobilinogen Ur Leukocyte Esterase Urine WBC (Auto) Urine RBC (Auto) U Hyaline Cast (Auto) U Epithel Cells (Auto) Urine Bacteria (Auto) Urine Yeast Nasal Screen MRSA (PCR) Adenovirus (PCR) Anaplasma Smear Babesia Smear Babesia microti DNA PCR B. pertussis DNA (PCR) B.parapertussis DNA PCR Lyme Disease IgG Ab Lyme IgG (Western Blot) Lyme IgG 18 kDa Band Lyme IgG 23 kDa Band Lyme IgG 28 kDa Band Lyme IgG 30 kDa Band Lyme IgG 39 kDa Band Lyme IgG 41 kDa Band Lyme IgG 45 kDa Band Lyme IgG 58 kDa Band Lyme IgG 66 kDa Band Lyme IgG 93 kDa Band Lyme IgM Ab (WB) Lyme Disease IgM Ab Lyme IgM 23 kDa Band Lyme IgM 39 kDa Band Lyme IgM 41 kDa Band C. pneumoniae DNA (PCR) Coronavirus OC43 (PCR) Coronavirus HKU1 (PCR) Coronavirus 229E (PCR) SARS-CoV-2 (PCR) Coronavirus NL63 (PCR) Human Metapneumovir PCR Influenza Type A (PCR) Influenza Type B (PCR) M. pneumoniae (PCR) Parainfluenza 1 (PCR) Parainfluenza 2 (PCR) Parainfluenza 3 (PCR) Parainfluenza 4 (PCR) RSV (PCR) Entero/Rhino (PCR) 04/24/23 04/24/23 04/24/23 08:50 13:02 17:51 WBC RBC Hgb Hct MCV MCH MCHC RDW Std Deviation RDW Coeff of [place] Plt Count MPV Immature Gran % (Auto) Neut % (Auto) Lymph % (Auto) [place] % (Auto) Eos % (Auto) Baso % (Auto) Neut # (Auto) Lymph # (Auto) [place] # (Auto) Eos # (Auto) Baso # (Auto) Immature Gran # (Auto) RBC Morphology Sodium Potassium Chloride Carbon Dioxide Anion Gap BUN Creatinine Est Cr Clr Drug Dosing Est GFR ( Amer) Est GFR (Non-Af Amer) BUN/Creatinine Ratio Glucose POC Glucose 317 H* 256 H 206 H Estimat Average Glucose Hemoglobin A1c Calcium Magnesium Total Bilirubin AST ALT Alkaline Phosphatase C-Reactive Protein Total Protein Albumin Globulin Albumin/Globulin Ratio Procalcitonin Urine Color Urine Appearance Urine pH Ur Specific [place] Urine Protein Urine Glucose (UA) Urine Ketones Urine Blood Urine Nitrite Urine Bilirubin Urine Urobilinogen Ur Leukocyte Esterase Urine WBC (Auto) Urine RBC (Auto) U Hyaline Cast (Auto) U Epithel Cells (Auto) Urine Bacteria (Auto) Urine Yeast Nasal Screen MRSA (PCR) Adenovirus (PCR) Anaplasma Smear Babesia Smear Babesia microti DNA PCR B. pertussis DNA (PCR) B.parapertussis DNA PCR Lyme Disease IgG Ab Lyme IgG (Western Blot) Lyme IgG 18 kDa Band Lyme IgG 23 kDa Band Lyme IgG 28 kDa Band Lyme IgG 30 kDa Band Lyme IgG 39 kDa Band Lyme IgG 41 kDa Band Lyme IgG 45 kDa Band Lyme IgG 58 kDa Band Lyme IgG 66 kDa Band Lyme IgG 93 kDa Band Lyme IgM Ab (WB) Lyme Disease IgM Ab Lyme IgM 23 kDa Band Lyme IgM 39 kDa Band Lyme IgM 41 kDa Band C. pneumoniae DNA (PCR) Coronavirus OC43 (PCR) Coronavirus HKU1 (PCR) Coronavirus 229E (PCR) SARS-CoV-2 (PCR) Coronavirus NL63 (PCR) Human Metapneumovir PCR Influenza Type A (PCR) Influenza Type B (PCR) M. pneumoniae (PCR) Parainfluenza 1 (PCR) Parainfluenza 2 (PCR) Parainfluenza 3 (PCR) Parainfluenza 4 (PCR) RSV (PCR) Entero/Rhino (PCR) 04/24/23 04/25/23 04/25/23 20:26 05:35 08:21 WBC 7.71 RBC 3.97 L Hgb 11.0 L Hct 34.0 L MCV 85.6 MCH 27.7 MCHC 32.4 RDW Std Deviation 42.7 RDW Coeff of [place] 13.7 Plt Count 140 MPV 10.7 Immature Gran % (Auto) 0.4 Neut % (Auto) 76.5 Lymph % (Auto) 10.0 [place] % (Auto) 11.5 Eos % (Auto) 1.2 Baso % (Auto) 0.4 Neut # (Auto) 5.90 Lymph # (Auto) 0.77 L [place] # (Auto) 0.89 H Eos # (Auto) 0.09 Baso # (Auto) 0.03 Immature Gran # (Auto) 0.03 RBC Morphology Sodium 137 Potassium 3.8 Chloride 104 Carbon Dioxide 23 Anion Gap 10 BUN 15 Creatinine 0.88 Est Cr Clr Drug Dosing 55.4 Est GFR ( Amer) 78.8 Est GFR (Non-Af Amer) 68.0 BUN/Creatinine Ratio 17.0 Glucose 192 H POC Glucose 190 H 191 H Estimat Average Glucose Hemoglobin A1c Calcium 8.3 L Magnesium Total Bilirubin 0.5 AST 20 ALT 15 Alkaline Phosphatase 111 H C-Reactive Protein Total Protein 6.8 Albumin 3.2 L Globulin 3.6 Albumin/Globulin Ratio 0.9 Procalcitonin Urine Color Urine Appearance Urine pH Ur Specific [place] Urine Protein Urine Glucose (UA) Urine Ketones Urine Blood Urine Nitrite Urine Bilirubin Urine Urobilinogen Ur Leukocyte Esterase Urine WBC (Auto) Urine RBC (Auto) U Hyaline Cast (Auto) U Epithel Cells (Auto) Urine Bacteria (Auto) Urine Yeast Nasal Screen MRSA (PCR) Adenovirus (PCR) Anaplasma Smear Babesia Smear Babesia microti DNA PCR B. pertussis DNA (PCR) B.parapertussis DNA PCR Lyme Disease IgG Ab Lyme IgG (Western Blot) Lyme IgG 18 kDa Band Lyme IgG 23 kDa Band Lyme IgG 28 kDa Band Lyme IgG 30 kDa Band Lyme IgG 39 kDa Band Lyme IgG 41 kDa Band Lyme IgG 45 kDa Band Lyme IgG 58 kDa Band Lyme IgG 66 kDa Band Lyme IgG 93 kDa Band Lyme IgM Ab (WB) Lyme Disease IgM Ab Lyme IgM 23 kDa Band Lyme IgM 39 kDa Band Lyme IgM 41 kDa Band C. pneumoniae DNA (PCR) Coronavirus OC43 (PCR) Coronavirus HKU1 (PCR) Coronavirus 229E (PCR) SARS-CoV-2 (PCR) Coronavirus NL63 (PCR) Human Metapneumovir PCR Influenza Type A (PCR) Influenza Type B (PCR) M. pneumoniae (PCR) Parainfluenza 1 (PCR) Parainfluenza 2 (PCR) Parainfluenza 3 (PCR) Parainfluenza 4 (PCR) RSV (PCR) Entero/Rhino (PCR) 04/25/23 04/25/23 04/25/23 12:05 17:11 20:51 WBC RBC Hgb Hct MCV MCH MCHC RDW Std Deviation RDW Coeff of [place] Plt Count MPV Immature Gran % (Auto) Neut % (Auto) Lymph % (Auto) [place] % (Auto) Eos % (Auto) Baso % (Auto) Neut # (Auto) Lymph # (Auto) [place] # (Auto) Eos # (Auto) Baso # (Auto) Immature Gran # (Auto) RBC Morphology Sodium Potassium Chloride Carbon Dioxide Anion Gap BUN Creatinine Est Cr Clr Drug Dosing Est GFR ( Amer) Est GFR (Non-Af Amer) BUN/Creatinine Ratio Glucose POC Glucose 131 H 187 H 126 H Estimat Average Glucose Hemoglobin A1c Calcium Magnesium Total Bilirubin AST ALT Alkaline Phosphatase C-Reactive Protein Total Protein Albumin Globulin Albumin/Globulin Ratio Procalcitonin Urine Color Urine Appearance Urine pH Ur Specific [place] Urine Protein Urine Glucose (UA) Urine Ketones Urine Blood Urine Nitrite Urine Bilirubin Urine Urobilinogen Ur Leukocyte Esterase Urine WBC (Auto) Urine RBC (Auto) U Hyaline Cast (Auto) U Epithel Cells (Auto) Urine Bacteria (Auto) Urine Yeast Nasal Screen MRSA (PCR) Adenovirus (PCR) Anaplasma Smear Babesia Smear Babesia microti DNA PCR B. pertussis DNA (PCR) B.parapertussis DNA PCR Lyme Disease IgG Ab Lyme IgG (Western Blot) Lyme IgG 18 kDa Band Lyme IgG 23 kDa Band Lyme IgG 28 kDa Band Lyme IgG 30 kDa Band Lyme IgG 39 kDa Band Lyme IgG 41 kDa Band Lyme IgG 45 kDa Band Lyme IgG 58 kDa Band Lyme IgG 66 kDa Band Lyme IgG 93 kDa Band Lyme IgM Ab (WB) Lyme Disease IgM Ab Lyme IgM 23 kDa Band Lyme IgM 39 kDa Band Lyme IgM 41 kDa Band C. pneumoniae DNA (PCR) Coronavirus OC43 (PCR) Coronavirus HKU1 (PCR) Coronavirus 229E (PCR) SARS-CoV-2 (PCR) Coronavirus NL63 (PCR) Human Metapneumovir PCR Influenza Type A (PCR) Influenza Type B (PCR) M. pneumoniae (PCR) Parainfluenza 1 (PCR) Parainfluenza 2 (PCR) Parainfluenza 3 (PCR) Parainfluenza 4 (PCR) RSV (PCR) Entero/Rhino (PCR) 04/26/23 04/26/23 04/26/23 05:32 08:34 12:37 WBC 6.90 RBC 4.12 L Hgb 11.3 L Hct 36.5 L MCV 88.6 MCH 27.4 MCHC 31.0 L RDW Std Deviation 45.3 RDW Coeff of [place] 14.0 Plt Count 136 MPV 10.9 Immature Gran % (Auto) 0.4 Neut % (Auto) 74.8 Lymph % (Auto) 8.1 [place] % (Auto) 15.5 Eos % (Auto) 0.6 Baso % (Auto) 0.6 Neut # (Auto) 5.16 Lymph # (Auto) 0.56 L [place] # (Auto) 1.07 H Eos # (Auto) 0.04 Baso # (Auto) 0.04 Immature Gran # (Auto) 0.03 RBC Morphology Sodium 133 L Potassium 3.8 Chloride 100 Carbon Dioxide 24 Anion Gap 9 BUN 19 Creatinine 1.02 Est Cr Clr Drug Dosing 47.9 Est GFR ( Amer) 65.9 Est GFR (Non-Af Amer) 56.9 BUN/Creatinine Ratio 18.6 Glucose 119 H POC Glucose 111 H 89 Estimat Average Glucose Hemoglobin A1c Calcium 8.2 L Magnesium Total Bilirubin AST ALT Alkaline Phosphatase C-Reactive Protein Total Protein Albumin Globulin Albumin/Globulin Ratio Procalcitonin Urine Color Urine Appearance Urine pH Ur Specific [place] Urine Protein Urine Glucose (UA) Urine Ketones Urine Blood Urine Nitrite Urine Bilirubin Urine Urobilinogen Ur Leukocyte Esterase Urine WBC (Auto) Urine RBC (Auto) U Hyaline Cast (Auto) U Epithel Cells (Auto) Urine Bacteria (Auto) Urine Yeast Nasal Screen MRSA (PCR) Adenovirus (PCR) Anaplasma Smear Babesia Smear Babesia microti DNA PCR B. pertussis DNA (PCR) B.parapertussis DNA PCR Lyme Disease IgG Ab Lyme IgG (Western Blot) Lyme IgG 18 kDa Band Lyme IgG 23 kDa Band Lyme IgG 28 kDa Band Lyme IgG 30 kDa Band Lyme IgG 39 kDa Band Lyme IgG 41 kDa Band Lyme IgG 45 kDa Band Lyme IgG 58 kDa Band Lyme IgG 66 kDa Band Lyme IgG 93 kDa Band Lyme IgM Ab (WB) Lyme Disease IgM Ab Lyme IgM 23 kDa Band Lyme IgM 39 kDa Band Lyme IgM 41 kDa Band C. pneumoniae DNA (PCR) Coronavirus OC43 (PCR) Coronavirus HKU1 (PCR) Coronavirus 229E (PCR) SARS-CoV-2 (PCR) Coronavirus NL63 (PCR) Human Metapneumovir PCR Influenza Type A (PCR) Influenza Type B (PCR) M. pneumoniae (PCR) Parainfluenza 1 (PCR) Parainfluenza 2 (PCR) Parainfluenza 3 (PCR) Parainfluenza 4 (PCR) RSV (PCR) Entero/Rhino (PCR) 04/26/23 04/26/23 04/27/23 17:09 20:14 05:40 WBC RBC Hgb Hct MCV MCH MCHC RDW Std Deviation RDW Coeff of [place] Plt Count MPV Immature Gran % (Auto) Neut % (Auto) Lymph % (Auto) [place] % (Auto) Eos % (Auto) Baso % (Auto) Neut # (Auto) Lymph # (Auto) [place] # (Auto) Eos # (Auto) Baso # (Auto) Immature Gran # (Auto) RBC Morphology Sodium Potassium Chloride Carbon Dioxide Anion Gap BUN Creatinine Est Cr Clr Drug Dosing Est GFR ( Amer) Est GFR (Non-Af Amer) BUN/Creatinine Ratio Glucose POC Glucose 94 124 H 82 Estimat Average Glucose Hemoglobin A1c Calcium Magnesium Total Bilirubin AST ALT Alkaline Phosphatase C-Reactive Protein Total Protein Albumin Globulin Albumin/Globulin Ratio Procalcitonin Urine Color Urine Appearance Urine pH Ur Specific [place] Urine Protein Urine Glucose (UA) Urine Ketones Urine Blood Urine Nitrite Urine Bilirubin Urine Urobilinogen Ur Leukocyte Esterase Urine WBC (Auto) Urine RBC (Auto) U Hyaline Cast (Auto) U Epithel Cells (Auto) Urine Bacteria (Auto) Urine Yeast Nasal Screen MRSA (PCR) Adenovirus (PCR) Anaplasma Smear Babesia Smear Babesia microti DNA PCR B. pertussis DNA (PCR) B.parapertussis DNA PCR Lyme Disease IgG Ab Lyme IgG (Western Blot) Lyme IgG 18 kDa Band Lyme IgG 23 kDa Band Lyme IgG 28 kDa Band Lyme IgG 30 kDa Band Lyme IgG 39 kDa Band Lyme IgG 41 kDa Band Lyme IgG 45 kDa Band Lyme IgG 58 kDa Band Lyme IgG 66 kDa Band Lyme IgG 93 kDa Band Lyme IgM Ab (WB) Lyme Disease IgM Ab Lyme IgM 23 kDa Band Lyme IgM 39 kDa Band Lyme IgM 41 kDa Band C. pneumoniae DNA (PCR) Coronavirus OC43 (PCR) Coronavirus HKU1 (PCR) Coronavirus 229E (PCR) SARS-CoV-2 (PCR) Coronavirus NL63 (PCR) Human Metapneumovir PCR Influenza Type A (PCR) Influenza Type B (PCR) M. pneumoniae (PCR) Parainfluenza 1 (PCR) Parainfluenza 2 (PCR) Parainfluenza 3 (PCR) Parainfluenza 4 (PCR) RSV (PCR) Entero/Rhino (PCR) 04/27/23 04/27/23 04/27/23 07:06 08:12 09:17 WBC 6.56 RBC 4.06 L Hgb 11.4 L Hct 34.7 L MCV 85.5 MCH 28.1 MCHC 32.9 RDW Std Deviation 43.6 RDW Coeff of [place] 13.9 Plt Count 141 MPV 10.4 Immature Gran % (Auto) 0.5 Neut % (Auto) 92.2 Lymph % (Auto) 4.3 [place] % (Auto) 2.7 Eos % (Auto) 0.0 Baso % (Auto) 0.3 Neut # (Auto) 6.05 Lymph # (Auto) 0.28 L [place] # (Auto) 0.18 Eos # (Auto) 0.00 Baso # (Auto) 0.02 Immature Gran # (Auto) 0.03 RBC Morphology Unremarkable Sodium 133 L Potassium 3.9 Chloride 99 Carbon Dioxide 23 Anion Gap 11 BUN 18 Creatinine 0.81 Est Cr Clr Drug Dosing 60.3 Est GFR ( Amer) 87.1 Est GFR (Non-Af Amer) 75.2 BUN/Creatinine Ratio 22.2 H Glucose 83 POC Glucose 88 Estimat Average Glucose Hemoglobin A1c Calcium 8.2 L Magnesium Total Bilirubin 0.7 AST 33 ALT 16 Alkaline Phosphatase 181 H C-Reactive Protein 11.08 H Total Protein 7.2 Albumin 3.2 L Globulin 4.0 Albumin/Globulin Ratio 0.8 L Procalcitonin 1.29 H Urine Color Urine Appearance Urine pH Ur Specific [place] Urine Protein Urine Glucose (UA) Urine Ketones Urine Blood Urine Nitrite Urine Bilirubin Urine Urobilinogen Ur Leukocyte Esterase Urine WBC (Auto) Urine RBC (Auto) U Hyaline Cast (Auto) U Epithel Cells (Auto) Urine Bacteria (Auto) Urine Yeast Nasal Screen MRSA (PCR) Adenovirus (PCR) Not Detected Anaplasma Smear Babesia Smear Babesia microti DNA PCR B. pertussis DNA (PCR) Not Detected B.parapertussis DNA PCR Not Detected Lyme Disease IgG Ab Lyme IgG (Western Blot) Lyme IgG 18 kDa Band Lyme IgG 23 kDa Band Lyme IgG 28 kDa Band Lyme IgG 30 kDa Band Lyme IgG 39 kDa Band Lyme IgG 41 kDa Band Lyme IgG 45 kDa Band Lyme IgG 58 kDa Band Lyme IgG 66 kDa Band Lyme IgG 93 kDa Band Lyme IgM Ab (WB) Lyme Disease IgM Ab Lyme IgM 23 kDa Band Lyme IgM 39 kDa Band Lyme IgM 41 kDa Band C. pneumoniae DNA (PCR) Not Detected Coronavirus OC43 (PCR) Not Detected Coronavirus HKU1 (PCR) Not Detected Coronavirus 229E (PCR) Not Detected SARS-CoV-2 (PCR) DETECTED A* Coronavirus NL63 (PCR) Not Detected Human Metapneumovir PCR Not Detected Influenza Type A (PCR) Not Detected Influenza Type B (PCR) Not Detected M. pneumoniae (PCR) Not Detected Parainfluenza 1 (PCR) Not Detected Parainfluenza 2 (PCR) Not Detected Parainfluenza 3 (PCR) Not Detected Parainfluenza 4 (PCR) Not Detected RSV (PCR) Not Detected Entero/Rhino (PCR) Not Detected 04/27/23 04/27/23 04/27/23 09:44 11:40 12:19 WBC RBC Hgb Hct MCV MCH MCHC RDW Std Deviation RDW Coeff of [place] Plt Count MPV Immature Gran % (Auto) Neut % (Auto) Lymph % (Auto) [place] % (Auto) Eos % (Auto) Baso % (Auto) Neut # (Auto) Lymph # (Auto) [place] # (Auto) Eos # (Auto) Baso # (Auto) Immature Gran # (Auto) RBC Morphology Sodium Potassium Chloride Carbon Dioxide Anion Gap BUN Creatinine Est Cr Clr Drug Dosing Est GFR ( Amer) Est GFR (Non-Af Amer) BUN/Creatinine Ratio Glucose POC Glucose 124 H Estimat Average Glucose Hemoglobin A1c Calcium Magnesium Total Bilirubin AST ALT Alkaline Phosphatase C-Reactive Protein Total Protein Albumin Globulin Albumin/Globulin Ratio Procalcitonin Urine Color Dark Yellow Urine Appearance Turbid A Urine pH 5.5 Ur Specific [place] 1.022 Urine Protein 1+ H Urine Glucose (UA) 3+ H Urine Ketones 1+ H Urine Blood 1+ H Urine Nitrite Negative Urine Bilirubin Negative Urine Urobilinogen Negative Ur Leukocyte Esterase 2+ H Urine WBC (Auto) >30 H Urine RBC (Auto) 5-10 H U Hyaline Cast (Auto) 1-5 U Epithel Cells (Auto) >30 H Urine Bacteria (Auto) Negative Urine Yeast Budding A Nasal Screen MRSA (PCR) Adenovirus (PCR) Anaplasma Smear See Comment Babesia Smear See Comment Babesia microti DNA PCR Not Detected B. pertussis DNA (PCR) B.parapertussis DNA PCR Lyme Disease IgG Ab Positive A Lyme IgG (Western Blot) NEGATIVE Lyme IgG 18 kDa Band NON-REACTIVE Lyme IgG 23 kDa Band NON-REACTIVE Lyme IgG 28 kDa Band NON-REACTIVE Lyme IgG 30 kDa Band NON-REACTIVE Lyme IgG 39 kDa Band NON-REACTIVE Lyme IgG 41 kDa Band NON-REACTIVE Lyme IgG 45 kDa Band NON-REACTIVE Lyme IgG 58 kDa Band REACTIVE A Lyme IgG 66 kDa Band NON-REACTIVE Lyme IgG 93 kDa Band NON-REACTIVE Lyme IgM Ab (WB) NEGATIVE Lyme Disease IgM Ab Negative Lyme IgM 23 kDa Band NON-REACTIVE Lyme IgM 39 kDa Band NON-REACTIVE Lyme IgM 41 kDa Band REACTIVE A C. pneumoniae DNA (PCR) Coronavirus OC43 (PCR) Coronavirus HKU1 (PCR) Coronavirus 229E (PCR) SARS-CoV-2 (PCR) Coronavirus NL63 (PCR) Human Metapneumovir PCR Influenza Type A (PCR) Influenza Type B (PCR) M. pneumoniae (PCR) Parainfluenza 1 (PCR) Parainfluenza 2 (PCR) Parainfluenza 3 (PCR) Parainfluenza 4 (PCR) RSV (PCR) Entero/Rhino (PCR) 04/27/23 04/27/23 04/28/23 17:18 20:36 08:20 WBC RBC Hgb Hct MCV MCH MCHC RDW Std Deviation RDW Coeff of [place] Plt Count MPV Immature Gran % (Auto) Neut % (Auto) Lymph % (Auto) [place] % (Auto) Eos % (Auto) Baso % (Auto) Neut # (Auto) Lymph # (Auto) [place] # (Auto) Eos # (Auto) Baso # (Auto) Immature Gran # (Auto) RBC Morphology Sodium Potassium Chloride Carbon Dioxide Anion Gap BUN Creatinine Est Cr Clr Drug Dosing Est GFR ( Amer) Est GFR (Non-Af Amer) BUN/Creatinine Ratio Glucose POC Glucose 143 H 142 H 117 H Estimat Average Glucose Hemoglobin A1c Calcium Magnesium Total Bilirubin AST ALT Alkaline Phosphatase C-Reactive Protein Total Protein Albumin Globulin Albumin/Globulin Ratio Procalcitonin Urine Color Urine Appearance Urine pH Ur Specific [place] Urine Protein Urine Glucose (UA) Urine Ketones Urine Blood Urine Nitrite Urine Bilirubin Urine Urobilinogen Ur Leukocyte Esterase Urine WBC (Auto) Urine RBC (Auto) U Hyaline Cast (Auto) U Epithel Cells (Auto) Urine Bacteria (Auto) Urine Yeast Nasal Screen MRSA (PCR) Adenovirus (PCR) Anaplasma Smear Babesia Smear Babesia microti DNA PCR B. pertussis DNA (PCR) B.parapertussis DNA PCR Lyme Disease IgG Ab Lyme IgG (Western Blot) Lyme IgG 18 kDa Band Lyme IgG 23 kDa Band Lyme IgG 28 kDa Band Lyme IgG 30 kDa Band Lyme IgG 39 kDa Band Lyme IgG 41 kDa Band Lyme IgG 45 kDa Band Lyme IgG 58 kDa Band Lyme IgG 66 kDa Band Lyme IgG 93 kDa Band Lyme IgM Ab (WB) Lyme Disease IgM Ab Lyme IgM 23 kDa Band Lyme IgM 39 kDa Band Lyme IgM 41 kDa Band C. pneumoniae DNA (PCR) Coronavirus OC43 (PCR) Coronavirus HKU1 (PCR) Coronavirus 229E (PCR) SARS-CoV-2 (PCR) Coronavirus NL63 (PCR) Human Metapneumovir PCR Influenza Type A (PCR) Influenza Type B (PCR) M. pneumoniae (PCR) Parainfluenza 1 (PCR) Parainfluenza 2 (PCR) Parainfluenza 3 (PCR) Parainfluenza 4 (PCR) RSV (PCR) Entero/Rhino (PCR) 04/28/23 04/28/23 04/28/23 08:29 11:47 17:37 WBC 10.50 RBC 3.84 L Hgb 10.6 L Hct 32.9 L MCV 85.7 MCH 27.6 MCHC 32.2 RDW Std Deviation 44.0 RDW Coeff of [place] 14.0 Plt Count 122 L MPV 11.3 Immature Gran % (Auto) 0.5 Neut % (Auto) 75.6 Lymph % (Auto) 10.2 [place] % (Auto) 13.2 Eos % (Auto) 0.3 Baso % (Auto) 0.2 Neut # (Auto) 7.94 H Lymph # (Auto) 1.07 L [place] # (Auto) 1.39 H Eos # (Auto) 0.03 Baso # (Auto) 0.02 Immature Gran # (Auto) 0.05 RBC Morphology Sodium 132 L Potassium 4.2 Chloride 98 Carbon Dioxide 26 Anion Gap 8 BUN 22 Creatinine 1.06 Est Cr Clr Drug Dosing 46.8 Est GFR ( Amer) 62.9 Est GFR (Non-Af Amer) 54.3 BUN/Creatinine Ratio 20.8 H Glucose 115 H POC Glucose 180 H 160 H Estimat Average Glucose Hemoglobin A1c Calcium 8.3 L Magnesium Total Bilirubin 0.6 AST 30 ALT 15 Alkaline Phosphatase 182 H C-Reactive Protein Total Protein 6.6 Albumin 2.9 L Globulin 3.7 Albumin/Globulin Ratio 0.8 L Procalcitonin Urine Color Urine Appearance Urine pH Ur Specific [place] Urine Protein Urine Glucose (UA) Urine Ketones Urine Blood Urine Nitrite Urine Bilirubin Urine Urobilinogen Ur Leukocyte Esterase Urine WBC (Auto) Urine RBC (Auto) U Hyaline Cast (Auto) U Epithel Cells (Auto) Urine Bacteria (Auto) Urine Yeast Nasal Screen MRSA (PCR) Adenovirus (PCR) Anaplasma Smear Babesia Smear Babesia microti DNA PCR B. pertussis DNA (PCR) B.parapertussis DNA PCR Lyme Disease IgG Ab Lyme IgG (Western Blot) Lyme IgG 18 kDa Band Lyme IgG 23 kDa Band Lyme IgG 28 kDa Band Lyme IgG 30 kDa Band Lyme IgG 39 kDa Band Lyme IgG 41 kDa Band Lyme IgG 45 kDa Band Lyme IgG 58 kDa Band Lyme IgG 66 kDa Band Lyme IgG 93 kDa Band Lyme IgM Ab (WB) Lyme Disease IgM Ab Lyme IgM 23 kDa Band Lyme IgM 39 kDa Band Lyme IgM 41 kDa Band C. pneumoniae DNA (PCR) Coronavirus OC43 (PCR) Coronavirus HKU1 (PCR) Coronavirus 229E (PCR) SARS-CoV-2 (PCR) Coronavirus NL63 (PCR) Human Metapneumovir PCR Influenza Type A (PCR) Influenza Type B (PCR) M. pneumoniae (PCR) Parainfluenza 1 (PCR) Parainfluenza 2 (PCR) Parainfluenza 3 (PCR) Parainfluenza 4 (PCR) RSV (PCR) Entero/Rhino (PCR) 04/28/23 04/29/23 04/29/23 21:09 06:55 08:16 WBC 6.11 RBC 3.79 L Hgb 10.4 L Hct 33.3 L MCV 87.9 MCH 27.4 MCHC 31.2 L RDW Std Deviation 46.0 RDW Coeff of [place] 14.3 Plt Count 117 L MPV 11.4 Immature Gran % (Auto) 0.5 Neut % (Auto) 69.7 Lymph % (Auto) 14.2 [place] % (Auto) 13.7 Eos % (Auto) 1.6 Baso % (Auto) 0.3 Neut # (Auto) 4.25 Lymph # (Auto) 0.87 L [place] # (Auto) 0.84 H Eos # (Auto) 0.10 Baso # (Auto) 0.02 Immature Gran # (Auto) 0.03 RBC Morphology Sodium 135 L Potassium 3.7 Chloride 101 Carbon Dioxide 26 Anion Gap 8 BUN 20 Creatinine 0.87 Est Cr Clr Drug Dosing 57.0 Est GFR ( Amer) 79.9 Est GFR (Non-Af Amer) 68.9 BUN/Creatinine Ratio 23.0 H Glucose 134 H POC Glucose 164 H 132 H Estimat Average Glucose Hemoglobin A1c Calcium 8.3 L Magnesium Total Bilirubin 0.4 AST 23 ALT 12 Alkaline Phosphatase 181 H C-Reactive Protein Total Protein 6.3 Albumin 2.7 L Globulin 3.6 Albumin/Globulin Ratio 0.8 L Procalcitonin Urine Color Urine Appearance Urine pH Ur Specific [place] Urine Protein Urine Glucose (UA) Urine Ketones Urine Blood Urine Nitrite Urine Bilirubin Urine Urobilinogen Ur Leukocyte Esterase Urine WBC (Auto) Urine RBC (Auto) U Hyaline Cast (Auto) U Epithel Cells (Auto) Urine Bacteria (Auto) Urine Yeast Nasal Screen MRSA (PCR) Adenovirus (PCR) Anaplasma Smear Babesia Smear Babesia microti DNA PCR B. pertussis DNA (PCR) B.parapertussis DNA PCR Lyme Disease IgG Ab Lyme IgG (Western Blot) Lyme IgG 18 kDa Band Lyme IgG 23 kDa Band Lyme IgG 28 kDa Band Lyme IgG 30 kDa Band Lyme IgG 39 kDa Band Lyme IgG 41 kDa Band Lyme IgG 45 kDa Band Lyme IgG 58 kDa Band Lyme IgG 66 kDa Band Lyme IgG 93 kDa Band Lyme IgM Ab (WB) Lyme Disease IgM Ab Lyme IgM 23 kDa Band Lyme IgM 39 kDa Band Lyme IgM 41 kDa Band C. pneumoniae DNA (PCR) Coronavirus OC43 (PCR) Coronavirus HKU1 (PCR) Coronavirus 229E (PCR) SARS-CoV-2 (PCR) Coronavirus NL63 (PCR) Human Metapneumovir PCR Influenza Type A (PCR) Influenza Type B (PCR) M. pneumoniae (PCR) Parainfluenza 1 (PCR) Parainfluenza 2 (PCR) Parainfluenza 3 (PCR) Parainfluenza 4 (PCR) RSV (PCR) Entero/Rhino (PCR) 04/29/23 04/29/23 04/29/23 12:42 17:28 19:45 WBC RBC Hgb Hct MCV MCH MCHC RDW Std Deviation RDW Coeff of [place] Plt Count MPV Immature Gran % (Auto) Neut % (Auto) Lymph % (Auto) [place] % (Auto) Eos % (Auto) Baso % (Auto) Neut # (Auto) Lymph # (Auto) [place] # (Auto) Eos # (Auto) Baso # (Auto) Immature Gran # (Auto) RBC Morphology Sodium Potassium Chloride Carbon Dioxide Anion Gap BUN Creatinine Est Cr Clr Drug Dosing Est GFR ( Amer) Est GFR (Non-Af Amer) BUN/Creatinine Ratio Glucose POC Glucose 170 H 90 Estimat Average Glucose Hemoglobin A1c Calcium Magnesium Total Bilirubin AST ALT Alkaline Phosphatase C-Reactive Protein Total Protein Albumin Globulin Albumin/Globulin Ratio Procalcitonin Urine Color Urine Appearance Urine pH Ur Specific [place] Urine Protein Urine Glucose (UA) Urine Ketones Urine Blood Urine Nitrite Urine Bilirubin Urine Urobilinogen Ur Leukocyte Esterase Urine WBC (Auto) Urine RBC (Auto) U Hyaline Cast (Auto) U Epithel Cells (Auto) Urine Bacteria (Auto) Urine Yeast Nasal Screen MRSA (PCR) Negative Adenovirus (PCR) Anaplasma Smear Babesia Smear Babesia microti DNA PCR B. pertussis DNA (PCR) B.parapertussis DNA PCR Lyme Disease IgG Ab Lyme IgG (Western Blot) Lyme IgG 18 kDa Band Lyme IgG 23 kDa Band Lyme IgG 28 kDa Band Lyme IgG 30 kDa Band Lyme IgG 39 kDa Band Lyme IgG 41 kDa Band Lyme IgG 45 kDa Band Lyme IgG 58 kDa Band Lyme IgG 66 kDa Band Lyme IgG 93 kDa Band Lyme IgM Ab (WB) Lyme Disease IgM Ab Lyme IgM 23 kDa Band Lyme IgM 39 kDa Band Lyme IgM 41 kDa Band C. pneumoniae DNA (PCR) Coronavirus OC43 (PCR) Coronavirus HKU1 (PCR) Coronavirus 229E (PCR) SARS-CoV-2 (PCR) Coronavirus NL63 (PCR) Human Metapneumovir PCR Influenza Type A (PCR) Influenza Type B (PCR) M. pneumoniae (PCR) Parainfluenza 1 (PCR) Parainfluenza 2 (PCR) Parainfluenza 3 (PCR) Parainfluenza 4 (PCR) RSV (PCR) Entero/Rhino (PCR) 04/29/23 04/30/23 04/30/23 19:52 05:51 08:05 WBC 7.71 RBC 3.39 L Hgb 9.5 L Hct 28.9 L MCV 85.3 MCH 28.0 MCHC 32.9 RDW Std Deviation 44.2 RDW Coeff of [place] 14.2 Plt Count 110 L MPV 11.3 Immature Gran % (Auto) 0.5 Neut % (Auto) 71.2 Lymph % (Auto) 11.8 [place] % (Auto) 14.4 Eos % (Auto) 1.7 Baso % (Auto) 0.4 Neut # (Auto) 5.49 Lymph # (Auto) 0.91 L [place] # (Auto) 1.11 H Eos # (Auto) 0.13 Baso # (Auto) 0.03 Immature Gran # (Auto) 0.04 RBC Morphology Sodium 133 L Potassium 3.7 Chloride 101 Carbon Dioxide 26 Anion Gap 6 BUN 16 Creatinine 0.83 Est Cr Clr Drug Dosing 59.5 Est GFR ( Amer) 84.6 Est GFR (Non-Af Amer) 73.0 BUN/Creatinine Ratio 19.3 Glucose 100 H POC Glucose 143 H 85 Estimat Average Glucose Hemoglobin A1c Calcium 8.1 L Magnesium Total Bilirubin 0.5 AST 22 ALT 11 Alkaline Phosphatase 195 H C-Reactive Protein Total Protein 6.0 Albumin 2.6 L Globulin 3.4 Albumin/Globulin Ratio 0.8 L Procalcitonin Urine Color Urine Appearance Urine pH Ur Specific [place] Urine Protein Urine Glucose (UA) Urine Ketones Urine Blood Urine Nitrite Urine Bilirubin Urine Urobilinogen Ur Leukocyte Esterase Urine WBC (Auto) Urine RBC (Auto) U Hyaline Cast (Auto) U Epithel Cells (Auto) Urine Bacteria (Auto) Urine Yeast Nasal Screen MRSA (PCR) Adenovirus (PCR) Anaplasma Smear Babesia Smear Babesia microti DNA PCR B. pertussis DNA (PCR) B.parapertussis DNA PCR Lyme Disease IgG Ab Lyme IgG (Western Blot) Lyme IgG 18 kDa Band Lyme IgG 23 kDa Band Lyme IgG 28 kDa Band Lyme IgG 30 kDa Band Lyme IgG 39 kDa Band Lyme IgG 41 kDa Band Lyme IgG 45 kDa Band Lyme IgG 58 kDa Band Lyme IgG 66 kDa Band Lyme IgG 93 kDa Band Lyme IgM Ab (WB) Lyme Disease IgM Ab Lyme IgM 23 kDa Band Lyme IgM 39 kDa Band Lyme IgM 41 kDa Band C. pneumoniae DNA (PCR) Coronavirus OC43 (PCR) Coronavirus HKU1 (PCR) Coronavirus 229E (PCR) SARS-CoV-2 (PCR) Coronavirus NL63 (PCR) Human Metapneumovir PCR Influenza Type A (PCR) Influenza Type B (PCR) M. pneumoniae (PCR) Parainfluenza 1 (PCR) Parainfluenza 2 (PCR) Parainfluenza 3 (PCR) Parainfluenza 4 (PCR) RSV (PCR) Entero/Rhino (PCR) 04/30/23 04/30/23 04/30/23 12:07 17:19 20:29 WBC RBC Hgb Hct MCV MCH MCHC RDW Std Deviation RDW Coeff of [place] Plt Count MPV Immature Gran % (Auto) Neut % (Auto) Lymph % (Auto) [place] % (Auto) Eos % (Auto) Baso % (Auto) Neut # (Auto) Lymph # (Auto) [place] # (Auto) Eos # (Auto) Baso # (Auto) Immature Gran # (Auto) RBC Morphology Sodium Potassium Chloride Carbon Dioxide Anion Gap BUN Creatinine Est Cr Clr Drug Dosing Est GFR ( Amer) Est GFR (Non-Af Amer) BUN/Creatinine Ratio Glucose POC Glucose 124 H 116 H 172 H Estimat Average Glucose Hemoglobin A1c Calcium Magnesium Total Bilirubin AST ALT Alkaline Phosphatase C-Reactive Protein Total Protein Albumin Globulin Albumin/Globulin Ratio Procalcitonin Urine Color Urine Appearance Urine pH Ur Specific [place] Urine Protein Urine Glucose (UA) Urine Ketones Urine Blood Urine Nitrite Urine Bilirubin Urine Urobilinogen Ur Leukocyte Esterase Urine WBC (Auto) Urine RBC (Auto) U Hyaline Cast (Auto) U Epithel Cells (Auto) Urine Bacteria (Auto) Urine Yeast Nasal Screen MRSA (PCR) Adenovirus (PCR) Anaplasma Smear Babesia Smear Babesia microti DNA PCR B. pertussis DNA (PCR) B.parapertussis DNA PCR Lyme Disease IgG Ab Lyme IgG (Western Blot) Lyme IgG 18 kDa Band Lyme IgG 23 kDa Band Lyme IgG 28 kDa Band Lyme IgG 30 kDa Band Lyme IgG 39 kDa Band Lyme IgG 41 kDa Band Lyme IgG 45 kDa Band Lyme IgG 58 kDa Band Lyme IgG 66 kDa Band Lyme IgG 93 kDa Band Lyme IgM Ab (WB) Lyme Disease IgM Ab Lyme IgM 23 kDa Band Lyme IgM 39 kDa Band Lyme IgM 41 kDa Band C. pneumoniae DNA (PCR) Coronavirus OC43 (PCR) Coronavirus HKU1 (PCR) Coronavirus 229E (PCR) SARS-CoV-2 (PCR) Coronavirus NL63 (PCR) Human Metapneumovir PCR Influenza Type A (PCR) Influenza Type B (PCR) M. pneumoniae (PCR) Parainfluenza 1 (PCR) Parainfluenza 2 (PCR) Parainfluenza 3 (PCR) Parainfluenza 4 (PCR) RSV (PCR) Entero/Rhino (PCR) 05/01/23 05/01/23 08:10 08:13 WBC 6.49 RBC 3.81 L Hgb 10.3 L Hct 33.2 L MCV 87.1 MCH 27.0 MCHC 31.0 L RDW Std Deviation 45.5 RDW Coeff of [place] 14.1 Plt Count 148 MPV 11.1 Immature Gran % (Auto) 1.2 Neut % (Auto) 62.5 Lymph % (Auto) 19.7 [place] % (Auto) 13.9 Eos % (Auto) 2.2 Baso % (Auto) 0.5 Neut # (Auto) 4.06 Lymph # (Auto) 1.28 [place] # (Auto) 0.90 H Eos # (Auto) 0.14 Baso # (Auto) 0.03 Immature Gran # (Auto) 0.08 RBC Morphology Sodium 138 Potassium 3.6 Chloride 104 Carbon Dioxide 27 Anion Gap 7 BUN 14 Creatinine 0.89 Est Cr Clr Drug Dosing 57.4 Est GFR ( Amer) 77.7 Est GFR (Non-Af Amer) 67.1 BUN/Creatinine Ratio 15.7 Glucose 83 POC Glucose 82 Estimat Average Glucose Hemoglobin A1c Calcium 8.2 L Magnesium Total Bilirubin 0.4 AST 20 ALT 11 Alkaline Phosphatase 200 H C-Reactive Protein Total Protein 6.4 Albumin 2.7 L Globulin 3.7 Albumin/Globulin Ratio 0.7 L Procalcitonin Urine Color Urine Appearance Urine pH Ur Specific [place] Urine Protein Urine Glucose (UA) Urine Ketones Urine Blood Urine Nitrite Urine Bilirubin Urine Urobilinogen Ur Leukocyte Esterase Urine WBC (Auto) Urine RBC (Auto) U Hyaline Cast (Auto) U Epithel Cells (Auto) Urine Bacteria (Auto) Urine Yeast Nasal Screen MRSA (PCR) Adenovirus (PCR) Anaplasma Smear Babesia Smear Babesia microti DNA PCR B. pertussis DNA (PCR) B.parapertussis DNA PCR Lyme Disease IgG Ab Lyme IgG (Western Blot) Lyme IgG 18 kDa Band Lyme IgG 23 kDa Band Lyme IgG 28 kDa Band Lyme IgG 30 kDa Band Lyme IgG 39 kDa Band Lyme IgG 41 kDa Band Lyme IgG 45 kDa Band Lyme IgG 58 kDa Band Lyme IgG 66 kDa Band Lyme IgG 93 kDa Band Lyme IgM Ab (WB) Lyme Disease IgM Ab Lyme IgM 23 kDa Band Lyme IgM 39 kDa Band Lyme IgM 41 kDa Band C. pneumoniae DNA (PCR) Coronavirus OC43 (PCR) Coronavirus HKU1 (PCR) Coronavirus 229E (PCR) SARS-CoV-2 (PCR) Coronavirus NL63 (PCR) Human Metapneumovir PCR Influenza Type A (PCR) Influenza Type B (PCR) M. pneumoniae (PCR) Parainfluenza 1 (PCR) Parainfluenza 2 (PCR) Parainfluenza 3 (PCR) Parainfluenza 4 (PCR) RSV (PCR) Entero/Rhino (PCR) Abdomen/Pelvis CT 04/23/23 15:51 CT OF THE ABDOMEN AND PELVIS WITH CONTRAST CLINICAL HISTORY: Left abdominal/flank pain. COMPARISON STUDY: None. TECHNIQUE: Following IV administration of 88 mL of Optiray, axial images of the abdomen and pelvis were obtained from the lung bases to the proximal femurs. Images were reviewed in the axial, sagittal, and coronal planes. IV contrast was administered without complication. Automated exposure control was utilized for the study. A dose lowering technique was utilized adhering to the principles of ALARA. CT DOSE: 1230.08 mGy.cm FINDINGS: Paraesophageal varices are noted. The liver is cirrhotic appearing. No hepatic lesions are identified on portal venous phase study. There is no biliary or pancreatic ductal dilatation. The main, left and right portal veins are patent. There is a gallstone within the gallbladder. There is no evidence for acute cholecystitis. Additional abdominal collaterals are present. The spleen is mildly enlarged. There is no ascites. The adrenal glands and pancreas are unremarkable. There is heterogeneous enhancement of the left kidney with moderate left perinephric stranding. There is left-sided urothelial thickening. Right renal enhancement is slightly heterogeneous. No urinary calculi are present. There is no hydronephrosis. There is no evidence for a bowel obstruction. The appendix is normal. Extensive colonic diverticulosis is present. No evidence for acute diverticulitis. There is no lymphadenopathy. No fluid collections are present. IMPRESSION: 1. Heterogeneous enhancement of the left kidney with moderate left perinephric stranding and urothelial thickening. The findings favor acute pyelonephritis and pyelitis. Mild bladder wall thickening could reflect cystitis. No renal abscess. No urinary calculi or hydronephrosis. 2. A few subtle hypoenhancing foci within the right kidney. Bilateral pyelonephritis would be difficult to exclude. 3. Cirrhotic liver. No hepatic lesions. Varices formation and splenomegaly indicative of portal hypertension. No ascites. 4. Extensive colonic diverticulosis. No evidence for acute diverticulitis. No bowel obstruction. ACT 112: Negative or not required by law. Electronically signed by: Kali Wang M.D. 04/23/2023 5:54 PM KUB X-Ray 04/26/23 09:00 KUB CLINICAL HISTORY: Generalized abdominal pain. FINDINGS: 3 AP, portable, supine abdominal radiographs are correlated with abdominal CT dated 04/23/2023. There is a nonobstructed abdominal bowel gas pattern. No evidence of intraperitoneal free air is seen on these supine images. There is mild to moderate colonic fecal retention. No abnormal abdominal calcifications are identified. Phleboliths are noted in the pelvis. The skeletal structures are osteopenic and appear intact. There is moderate lumbosacral spondylosis. IMPRESSION: No acute abnormality is identified. Electronically signed by: Sanford Monge M.D. 04/26/2023 10:39 AM Chest X-Ray 04/27/23 09:05 XR chest 2V PA/lateral HISTORY: 67 years-old Female Tachycardia, fever, acute tachycardia COMPARISON: 12/21/2020 TECHNIQUE: PA and lateral views of the chest FINDINGS: Cardiomegaly. Prior median sternotomy with cardiac valvular prosthesis. The inferior most sternotomy wire is fractured. Chronic interstitial coarsening. No pneumothorax, pleural effusion or lobar airspace consolidation. Chronic interstitial coarsening. Degenerative changes of the shoulders and spine. IMPRESSION: Cardiomegaly without acute process. ACT 112: Negative or not required by law. The above report was generated using voice recognition software. It may contain grammatical, syntax or spelling errors. Electronically signed by: Solo Harrison M.D. 04/27/2023 11:09 AM Chest X-Ray 04/29/23 11:22 XR chest 2V PA/lateral HISTORY: covid, new fever/rhonchi - ?developing LLL infiltr COMPARISON: Chest 04/27/2023. FINDINGS: No pneumothorax. No pleural effusions. The heart remains mildly enlarged. There are poststernotomy changes and an aortic valve prosthesis again noted. Chronic interstitial thickening persists. Small linear density within the right lower lobe favors subsegmental atelectasis. Patchy airspace opacities within the lung bases have progressed in the interval. This is best seen on the lateral view. No evidence for pulmonary edema. IMPRESSION: Patchy bibasilar airspace opacities which have progressed in the interval. This likely represents a pneumonia. ACT 112: Negative or not required by law. Electronically signed by: Jaycob Altman M.D. 04/29/2023 12:36 PM 04/23/23 15:51 CT abd pelvis IV con only Stat Diabetes Follow up Diabetes Follow-up Needed for HgbA1c >9% Hospital Course (1) SIRS (systemic inflammatory response syndrome): (2) Pyelonephritis: (3) Hyperglycemia due to type 2 diabetes mellitus: (4) Liver cirrhosis: (5) CAD (coronary artery disease): (6) Nocturnal hypoxia: Plan Pt is a 67 yo female with a past medical history of uncontrolled DMT2, liver cirrhosis, CHF, GERD, CAD, HLD, asthma, HTN, hypothyroidism who presents to the hospital on 04/23/22 for pyelonephritis. Pyelonephritis - Pyelonephritis present on admission - Urine culture found with E. coli. Patient was treated with Ceftriaxone for 8 days -Nausea and pain treated with Zofran and pain medication -Likely came on due to markedly uncontrolled diabetes/ glucose urea with her SGLT2 -Repeat Urine culture on 04/27 (due one episode of fever, see below) show Yeast not juliana and E. Fecalis (30,000). Seem to be contaminated. No return of fever and patient asymptomatic. SIRS/ Sepsis/ Pneumonia: - Patient had a new onset of fever of 39C, tachycardic with HR and 97, mildly tachypneic with RR 20, suspicious for secondary infection with pulmonary source (Patient recently with COVID) - CXR 04/29 significant for patchy bibasilar airspace opacities, likely pneumonia - Repeat blood cultures: negative for 24 hrs - Transition Ceftriaxone to Cefepime to extended coverage - MRSA nares: negative Hypoxia: -Increase requirement during this admission -Resolved Nausea/vomiting - pt has continued nausea, denies recent vomiting - KUB 04/26: moderate stool burden, no obstruction - pt since had bowel movement. Continue bowel regimen as needed. Hyperglycemia due to type 2 diabetes mellitus - See above - suspect her pyelonephritis was largely because of uncontrolled diabetes and excess glucosuria -A1c 13.3 - Treated her with basal/bolus insulin management - Home medication continue. Follow outpatient for further glycemic control. Liver cirrhosis -Almost certainly metabolic/nonalcoholic fatty liver leading to cirrhosis from uncontrolled diabetes. - bilirubin and INR wnl CAD (coronary artery disease) - Clinically appears to be stable, continue home meds Total Time Total Time Spent Total Time Spent (In Minutes): see attending attestation Discharge Plan Discharge Items Patient Disposition: Home - Self-Care Reason For Visit: PYELONEPHRITIS, HYPERGLYCEMIA Discharge Diagnosis: Pyelonephritis COVID 19 Activity: Resume your previous activity Non-emergency contact: Primary Care Provider Call non-emergency contact if: you have any medication questions, your pain is unusual for you and you have a fever Follow-up/Referrals: Cirilo Page CRNP [Primary Care Provider] - 05/03/23 8:40 am Diet: Carb Consistent or DM2 and Low Sodium (2gm) Addtl Attending Provider Instructions: You were admitted to the hospital due to Pyelonephritis which is an infection on your kidney. You were treated with antibiotic for 8 days. During your stay sadly you developed a pneumonia. This increased you requirement for oxygen and you had a fever. We were concern for secondary bacterial infection taking placed. Blood culture were negative after 24 hr. Because you completed you course of antibiotic you will not need to take one at home Additionally you were found with high blood sugar during your admission. You were treated here with insulin. It's very important to continue taking your home medication as prescribed and continue healthy modification. Very important to keep track of you glucose and follow with your PCP for further management of the diabetes. Follow-up appointments: Make a follow-up appointment with your PCP within the next week. It is very important that you follow up with them shortly after discharge from the hospital. Keep all your follow-up appointments as already scheduled. If you cannot make an appointment, notify your provider. Medications: Your medication list has been reviewed and reconciled upon discharge to ensure accuracy and continuity of care. An updated list of all your medications is included with your hospital discharge paperwork. Please review this list closely, and make note of any changes. Take your medications as instructed; do not skip a dose of your medicines. Make sure all of your doctors know every medicine you are taking (including nqfa-[id number] medicines, vitamins, and supplements). Call your primary care provider before taking any new medicines (including edug-drv-wlndukf medicines, vitamins, and supplements), because some of these may interact with your current medications, or may make your symptoms worse. Tell your primary care provider if you cannot afford your medications. CONTACT YOUR PRIMARY CARE PROVIDER if you experience any of the following: Difficulty following your treatment plan, or difficulty taking medications CALL 911 OR GO TO THE EMERGENCY DEPARTMENT if you experience any of the following: Sudden, severe abdominal pain or nausea/vomiting Severe chest pain, or chest pain that radiates (moves) to your jaw or arm Sudden, severe shortness of breath or difficulty breathing Thank you for allowing us to participate in your care. Pending Studies at Discharge: No Stand-Alone Forms: [facility], Smoking Cessation Medications and DC Order Prescriptions: Continued (DME) pen needle, diabetic [BD Ultra-Fine Ruth Pen Needle] 32 gauge x 5/32" needle See Rx Instructions .ROUTE .MEDSUPPLY Qty: 100 3RF Rx Instructions: Inject once daily Dx: E11.9 atorvastatin 20 mg tablet 20 mg PO QPM Qty: 90 2RF aspirin 81 mg tablet,delayed release (DR/EC) 81 mg PO DAILY Qty: 90 1RF lisinopril 5 mg tablet 5 mg PO DAILY Qty: 90 2RF empagliflozin 25 mg tablet 25 mg PO DAILY Qty: 90 2RF levothyroxine 88 mcg tablet 88 mcg PO DAILY Qty: 30 2RF metformin 1,000 mg tablet 1,000 mg PO BID Qty: 180 1RF venlafaxine 150 mg capsule,extended release 24hr 150 mg PO DAILY Qty: 90 1RF baclofen 5 mg tablet 5 mg PO BID Qty: 20 0RF furosemide 20 mg tablet 20 mg PO DAILY PRN (Reason: weight gain) Qty: 30 2RF pantoprazole [Protonix] 40 mg tablet,delayed release (DR/EC) 40 mg PO DAILY Qty: 90 2RF insulin glargine [Lantus Solostar U-100 Insulin] 100 unit/mL (3 mL) insulin pe n 22 unit subcut QAM Discharge Orders: Discharge Order (Routine); Ordered 05/01/23 Ordered By: Nisreen Young/Other Patient Handouts: Diabetes Food Shop Meals Prep, Diabetes Food Tips Ch, Diabetes: Meal Planning Admission Data Admit Date/Time: 04/23/23 20:06 Attending Provider: Jennifer Vaughn Admit Provider: Srini Moseley Primary Care Provider: Cirilo Page Other Providers: Srini Moseley; Zackary Rivers Other Interventions: Discharge Summary Assessment (RN) Last Done: 05/01/23 11:01 Supervising Physician Co-Signing Physician Notes Attending Physician Supervision Note: I independently interviewed and examined the patient and verified the butler history and physical, reviewed labs and image studies and agree with findings and care plan noted above. no concerns. Sitting in chair without any distress. Vitals noted. HEENT normocephalic atraumatic mucous membranes moist. lungs clear. Pyelonephritisreason for admission. Urine cx 04/23/2023 - >100k E coli - treated with ceftriaxone. -urine cx was recheck on 04/27 for temp spike - grew 30k Enterococcus -- this is likely contaminant and was not treated. fever - on 04/29/2023 - likely from covid. only one temperature spike. no fever over 48 hours. cxr infiltrate likely from atelectasis. abx coverage was broadened to cefepime but with no further temp spike, normal wbc, improved hypoxia - no further concern. abx d/spencer on discharge. COVID symptomatic treatment provided. Cirrhosis stable. Resident Activity Tracking Resident Involvement: Resident Care Provided Care Provided: Adult Hospital Medicine
[2023-05-01 14:57] LABS: 18KDIGG Band NON-REACTIVE; 23KDIGG Band NON-REACTIVE; 23KDIGM Band NON-REACTIVE; 28KDIGG Band NON-REACTIVE; 30KDIGG Band NON-REACTIVE; 39KDIGG Band NON-REACTIVE; 39KDIGM Band NON-REACTIVE; 41KDIGG Band NON-REACTIVE; 41KDIGM Band REACTIVE; 45KDIGG Band NON-REACTIVE; 58KDIGG Band REACTIVE; 66KDIGG Band NON-REACTIVE; 93KDIGG Band NON-REACTIVE; Lyme Antibodies, WB IgG NEGATIVE (NEGATIVE); Lyme Antibodies, WB IgM NEGATIVE (NEGATIVE)
== END 2023-05-01 12:25 | disposition home or self-care (01) | DRG 689 ==
LOC: ED 15:28 → SUATTDRO 20:06 → EDINP 20:06 → 2N 04-24 21:03 → 4W 04-27 16:02

== ENCOUNTER 2023-05-08 07:11 | Inpatient (IN) ==
[2023-05-08] MEDS ORDERED: SODIUM CHLORIDE 0.9% 1,000 ML IV STA (07:32)
[2023-05-08 08:00] LABS: iSTAT Creatinine 1.2 mg/dl (0.6-1.3); iSTAT Hemoglobin 9.9 g/dl (12.0-16.0); iSTAT Ionized Calcium 1.05 mmol/l (1.12-1.32); iSTAT Potassium 4.4 mmol/L (3.3-5.0)
[2023-05-08 08:06] LABS: Basophils # (auto) 0.12 K/uL (0.00-0.20); Basophils % (auto) 1.3 %; Eosinophils # (auto) 0.26 K/uL (0.00-0.50); Eosinophils % (auto) 2.8 %; Hematocrit (blood only) 31.4 % (37.0-47.0); Hemoglobin 9.7 g/dl (12.0-16.0); Immature Granulocytes # (auto) 0.12 K/uL (0.01-0.20); Immature Granulocytes % (auto) 1.3 %; Lymphocytes # (auto) 1.67 K/uL (1.20-3.40); Lymphocytes % (auto) 18.1 %; Mean Corpuscular Hemoglobin 27.4 pg (25.0-34.0); Mean Corpuscular Hgb Conc 30.9 g/dL (32.0-36.0); Mean Corpuscular Volume 88.7 fL (80.0-100.0); Mean Platelet Volume 10.4 fL (9.4-12.4); Monocytes # (auto) 0.97 K/uL (0.11-0.59); Monocytes % (auto) 10.5 %; Platelet Count 323 K/uL (130-400); RDW Coefficient of Variation 14.5 % (11.5-14.5); RDW Standard Deviation 46.5 fL (36.4-46.3); Red Blood Count 3.54 M/uL (4.20-5.40); White Blood Count 9.24 K/ul (4.8-10.8)
[2023-05-08 08:24] LABS: Albumin Globulin Ratio 0.8 (0.9-2); Albumin Level 3.1 gm/dl (3.4-5.0); BUN Creatinine Ratio 8.2 (10-20); Bilirubin,Total 0.5 mg/dl (0.2-1.0); Calcium 8.3 mg/dl (8.6-10.3); Creatinine Clr Calc Pharmacy 39.5 ml/min; Est GFR (African American) 53.1 ml/min; Est GFR (Non-African American) 45.8 ml/min; Globulin 3.8 gm/dl (2.5-4.0); Potassium 4.3 mmol/L (3.5-5.1); Total Protein 6.9 gm/dl (6.0-8.3)
[2023-05-08 08:29] LABS: INR 1.2 (0.9-1.1); Partial Thromboplastin Time 27 Seconds (21-31); Prothrombin Time 13.3 Seconds (9.0-12.0)
[2023-05-08] MEDS ORDERED: OPTIRAY 320 500ml IV ONE (08:45)
[2023-05-08] MEDS ORDERED: SODIUM CHLORIDE 0.9% 250 ML IV PRN ×2 (09:00→20:23)
--- NOTE | 2023-05-08 09:10 | CT Scan Report ---
ABDOMEN AND PELVIS CT WITH IV CONTRAST CT DOSE: 1113.99 mGy.cm HISTORY: Bright red blood per rectum. TECHNIQUE: Multiaxial CT images of the abdomen and pelvis were performed following the use of intrave nous contrast. A dose lowering technique was utilized adhering to the principles of ALARA. COMPARISON STUDY: Abdomen and pelvis CT 04/23/2023. FINDINGS: There is an 8 mm groundglass nodule within the right middle lobe on image 8. There is a 5 m m subpleural nodule within the right lower lobe on image 53. Mild emphysema the lung bases. No pneumo peritoneum. No pneumatosis. No acute fractures identified. There are poststernotomy changes. Nodular contour to the liver consistent with cirrhosis. No hepatic or splenic masses. The spleen remains top normal in size. The main portal vein appears patent. The major mesenteric vessels are patent. There i s mild calcified plaque within the normal caliber abdominal aorta. Prominent periportal lymph nodes r emain unchanged. There is a small gallstone. No gallbladder wall thickening. The pancreas enhances no rmally. No hydronephrosis. Mild heterogeneous enhancement within the kidneys, left greater than right , has improved in the interval. Mild urothelial thickening within the left renal pelvis has also impr macey. Therefore, this suggests resolving acute pyelonephritis. Normal adrenal glands. Upper abdominal and paraesophageal varices again noted. No pelvic lymphadenopathy or pelvic free fluid. Mild bladder wall thickening may be due to underdistention. The uterus and adnexa are unremarkable. Small rectal hemorrhoids are suggested. No dilated loops of bowel to suggest an obstruction. Colonic diverticulosi s. There is a single inflamed diverticulum with surrounding fat stranding within the mid descending c olon on image 175. Therefore, this likely represents a mild acute diverticulitis. No perforation or a bscess at this time. Normal appendix. No dilated loops of bowel to suggest an obstruction. Fluid-fill ed nondilated distal colon. This could represent a diarrheal illness. IMPRESSION: 1. Mild acute diverticulitis involving the mid descending colon. No perforation or abscess. 2. Mild heterogeneous enhancement within the kidneys which has improved on the left. The left perinep hric fat stranding has also improved. This suggests a resolving acute pyelonephritis. 3. Cirrhotic liver with varices formation and small rectal hemorrhoids consistent with underlying por eula hypertension. No ascites. 4. An 8 mm groundglass nodule within the right middle lobe and a 5 mm subpleural nodule within the ri ght lower lobe. Please refer to the chart below for recommended follow-up. 5. Cholelithiasis. 6. Additional findings as described above. Please refer to below summary of Fleischner criteria recommendations for follow-up of incidental CT n odules (Toñito Hernadez, Guidelines for management of small pulmonary nodules detected on CT scans: A sta tement from the Fleischner Society, Radiology 237: [id number].) SOLID NODULES Solitary nodule size: <6 mm * Low risk patients: no follow-up needed * high risk patients: optional CT at 12 months Solitary nodule size: 6-8 mm * Low risk patients: follow-up at 6-12 months, then consider further follow-up at 18-24 months * high risk patients: initial follow-up CT at 6-12 months and then at 18-24 months if no change Solitary nodule size: >8 mm * either low or high risk patients - consider follow-up CT at 3 months, and/or CT-PET, and/or biopsy Multiple nodules size: <6 mm * Low risk patients: no routine follow-up * high risk patients: optional CT at 12 months Multiple nodules size: 6-8 mm * Low risk patients: follow-up at 3-6 months, then consider further follow-up at 18-24 months * high risk patients: follow-up at 3-6 months, then at 18-24 months if no change Multiple nodules size: >8 mm * Low risk patients: follow-up at 3-6 months, then consider further follow-up at 18-24 months * high risk patients: follow-up at 3-6 months, then at 18-24 months if no change Note: newly detected indeterminate nodule in persons 35 years of age or older. * Low risk patients: minimal or absent history of smoking and/or other known risk factors * high risk patients: history of smoking or of other known risk factors (e.g. first degree relative with lung cancer, or exposure to asbestos, radon, uranium) * if a nodule up to 8 mm is partly solid or is ground glass further follow-up is required after 24 m onths to exclude possible slow growing adenocarcinoma (CARI) SUBSOLID NODULES Solitary pure ground-glass nodule * nodule size <6 mm - no CT follow-up required * nodule size >=6 mm - follow-up CT at 6-12 months, then every 2 years until 5 years Solitary part-solid nodule * nodule size <6 mm - no CT follow-up required * nodule size >=6 mm - follow-up CT at 3-6 months. If unchanged, and solid component remains <6 mm, then annual follow-up for 5 years Multiple subsolid nodules * nodule size <6 mm - follow-up CT at 3-6 months, consider further follow-up at 2 and 4 years if sta ble * nodule size >=6 mm - follow-up CT at 3-6 months, subsequent management based on the most suspiciou s nodule(s) ACT 112: Negative or not required by law. Electronically signed by: Jaycob Altman M.D. 05/08/2023 9:08 AM
[2023-05-08] MEDS ORDERED: CIPROFLOXACIN / D5W 400 MG/200 ML BAG IV STA (09:56)
--- NOTE | 2023-05-08 09:56 | Emergency Department Note ---
Impression & Plan Acute lower gastrointestinal bleeding, Liver cirrhosis, Diverticulitis, ABLA (acute blood loss anemia) ED Provider Note CHIEF COMPLAINT: Rectal bleeding HISTORY OF PRESENT ILLNESS: This 67-year-old female patient with past medical history of congestive heart failure, type 2 diabetes, hypercholesterolemia, hypertension, asthma, hyperlipidemia, AAA, aortic valve replacement, LVH, CAD status post CABG, GERD presents to the emergency department with complaints of rectal bleeding. The patient states she was recently diagnosed with a UTI and hematuria last week and placed on Bactrim. Patient states that this bleeding today is definitely from the rectum. She sat down on the toilet and had a liquidy red blood without a BM. She has not had any vomiting or significant abdominal pain. Patient states she was discharged on May 01 due to pyelonephritis. REVIEW OF SYSTEMS: A review of systems was performed with positives and pertinent negatives listed in the history of present illness. 10 systems were reviewed and are otherwise negative. ALLERGIES: see below MEDICATIONS: see below PMH: see below SOCIAL HISTORY: see below DDx: Hemorrhoids, rectal fissure, diverticulitis, colonic mass, coagulopathy, ischemic colitis among others. PHYSICAL EXAM: Vital signs reviewed. General: Well-appearing 67-year-old female, in no significant distress. HEENT: No scleral icterus, PERRLA, neck supple. Moist mucous membranes. Cardiovascular: Regular rate and rhythm, no extra sounds. Pulmonary: Clear to auscultation bilaterally, normal work of breathing. Abdomen: Soft, nontender, nondistended, positive bowel sounds. Musculoskeletal: Atraumatic, no peripheral edema. Rectal: Bright red blood per rectum, guaiac positive. No stool identified. No external mucosal abnormality identified. Neurologic: Patient awake alert and oriented x 3, speech is clear Skin: Warm, dry, no rash EMERGENCY DEPARTMENT COURSE/MDM: This patient was evaluated and appeared to be in no significant distress. IV access was obtained and laboratory work was drawn. Patient was placed on the cardiac tech was noted to be in a normal sinus rhythm. Patient has no pain to palpation of the abdomen. Rectal exam is positive for gross bright red blood. This is guaiac positive. There is no external mucosal abnormality identified. Patient was hydrated with normal saline solution, typed and crossed for 2 units of PRBCs. The initial hemoglobin is 7.9, which is a drop from most recent previous. Patient's vital signs have remained stable, a blood transfusion consent was signed however PRBCs are held at this time. CT imaging of the abdomen pelvis was performed and reveals mild diverticulitis without abscess or perforation. I did discuss the cirrhotic liver and perihepatic varices visualized on CT with the patient. We discussed the importance of follow-up after this admission. Patient has documented allergy to penicillin therefore Cipro and Flagyl were given IV. Patient and are aware of the plan and agree. Patient's case was discussed with the hospitalist service who will evaluate the patient for admission and further management. Patient and were aware of the plan and agree. MONITORING: An order for cardiac monitoring was placed and the patient is noted to be in a normal sinus rhythm at 76 beats per minute. RADIOLOGY: CT scan of the abdomen and pelvis per radiology reveals a mild diverticulitis, no abscess or perforation, hemorrhoids identified. Please see final read below. EKG: To my interpretation reveals a normal sinus rhythm 86 bpm. Possible LVH. QTc of 466. Normal ST segments. No PVC, no PAC. When compared to previous dated December 21, 2020, T wave inversions in the inferior and lateral leads are no longer present. DISPOSITION: Admission Past Med/Surg History Medical History Varices of other sites Portal hypertension Splenomegaly Liver cirrhosis GERD without esophagitis CAD (coronary artery disease) (11/29/20) MOREL-LAD, Ao-PDA, Ao-OM with reversed saphenous vein Moderate mitral regurgitation Mitral valve annular calcification Severe calcific aortic valve stenosis Vitamin deficiency Abdominal aortic aneurysm Heart murmur Acid reflux Fatty liver Anemia Acne Depression Hypertension Hypothyroidism (acquired) Hypercholesterolemia Type 2 diabetes mellitus Surgical History Status post device closure of ASD (11/29/20) Aortic valve replaced (11/29/20) with annular enlargement, 21 mm Inspiris Bioprosthetic valve S/P CABG x 3 H/O tubal ligation Status post hernia repair x3 Endometriosis Family History Father Stomach cancer Daughter Diabetes Heart disease Hypertension Mother Diabetes Sister No problems noted. Son Heart disease Hypertension Grandfather Myocardial infarction Denies family history of Ovarian cancer Prostate cancer Breast cancer Colorectal cancer Social History Smoking Status: Never smoker Second Hand Exposure: No; Do You Dip or Chew Tobacco: No; Hx Alcohol Use: No Hx Substance Use: No Preferred Language: Irish Communication Ability: Effective Hearing Ability: Normal Food Inspector Required: No Beliefs That Will Affect Care: None marital status: Current Living Situation: Parent current occupational status: unemployed current occupation: homemaker How many Children do You have: 5 Feels Safe at Home: Yes Childhood Exposure to Second-Hand Smoke: Yes Diet: regular caffeine: No during the past year weight has: remained stable Dental Care, Regularly: No Physical Activity Frequency: Does not Exercise Seatbelt Use: sometimes Sunscreen Use: Yes (sometimes) Assistive Devices: Glasses Allergies Allergies Allergy/AdvReac Type Severity Reaction Status Date / Time Penicillins Allergy Intermediate CAN'T Verified 04/23/23 18:18 REMEMBER Tetanus Vaccines and Toxoid Allergy Mild ARM Verified 12/12/22 12:22 SWELLING-HOT TO TOUCH Home Meds Home Medications Medication Instructions Recorded Confirmed insulin glargine 100 unit/mL (3 22 unit subcut QAM 04/23/23 05/08/23 mL) subcutaneous pen (Lantus Solostar U-100 Insulin) Previous Rx's Medication Instructions Recorded pen needle, diabetic 32 gauge x #100 ea 06/09/20" (BD Ultra-Fine Ruth Pen Needle) furosemide 20 mg tablet 20 mg PO DAILY PRN weight gain #30 04/11/22 tabs pantoprazole 40 mg tablet,delayed 40 mg PO DAILY #90 tabs 04/11/22 release (Protonix) atorvastatin 20 mg tablet 20 mg PO QPM #90 tabs 05/31/22 aspirin 81 mg tablet,delayed 81 mg PO DAILY #90 tabs 07/12/22 release empagliflozin 25 mg tablet 25 mg PO DAILY #90 tabs 08/04/22 levothyroxine 88 mcg tablet 88 mcg PO DAILY #30 tabs 08/04/22 lisinopril 5 mg tablet 5 mg PO DAILY #90 tabs 08/04/22 baclofen 5 mg tablet 5 mg PO BID #20 tabs 12/12/22 metformin 1,000 mg tablet 1,000 mg PO BID #180 tabs 01/23/23 venlafaxine 150 mg 150 mg PO DAILY #90 caps 03/01/23 capsule,extended release 24 hr Results & Data (ED) Vital Signs Vital Signs - 24 hr 05/08/23 07:11 05/08/23 07:32 05/08/23 07:37 Temperature 36.3 C L Temperature Source Temporal Artery Scan Pulse Rate 94 H 86 91 H Pulse Rate from SpO2 Sensor Respiratory Rate 18 19 Respiratory Effort / Characteristics Non-Labored Spontaneous Respiratory Depth Normal Blood Pressure 106/69 Blood Pressure Mean 81 Blood Pressure Position Sitting Pulse Oximetry 99 Oxygen Delivery Method Room Air Sepsis Recent Fever Within 48 Hours No Sepsis New/Unexplained Change in Mental Status No Sepsis Action Taken by Nursing No Action Required 05/08/23 07:46 05/08/23 07:46 05/08/23 08:00 Temperature Temperature Source Pulse Rate 83 Pulse Rate from SpO2 Sensor Respiratory Rate 16 Respiratory Effort / Characteristics Respiratory Depth Blood Pressure 97/81 L 107/60 Blood Pressure Mean 86 67 Blood Pressure Position Pulse Oximetry Oxygen Delivery Method Sepsis Recent Fever Within 48 Hours Sepsis New/Unexplained Change in Mental Status Sepsis Action Taken by Nursing 05/08/23 08:00 05/08/23 08:10 05/08/23 08:10 Temperature Temperature Source Pulse Rate 80 84 Pulse Rate from SpO2 Sensor 81 83 Respiratory Rate 17 17 Respiratory Effort / Characteristics Respiratory Depth Blood Pressure 138/67 Blood Pressure Mean 86 Blood Pressure Position Pulse Oximetry 99 99 Oxygen Delivery Method Sepsis Recent Fever Within 48 Hours Sepsis New/Unexplained Change in Mental Status Sepsis Action Taken by Nursing 05/08/23 08:37 05/08/23 09:00 05/08/23 09:00 Temperature Temperature Source Pulse Rate 77 77 Pulse Rate from SpO2 Sensor 76 Respiratory Rate 14 13 Respiratory Effort / Characteristics Respiratory Depth Blood Pressure 122/60 Blood Pressure Mean 99 Blood Pressure Position Pulse Oximetry 100 Oxygen Delivery Method Sepsis Recent Fever Within 48 Hours Sepsis New/Unexplained Change in Mental Status Sepsis Action Taken by Nursing 05/08/23 09:30 05/08/23 09:31 05/08/23 09:31 Temperature Temperature Source Pulse Rate 75 76 Pulse Rate from SpO2 Sensor 74 77 Respiratory Rate 18 17 Respiratory Effort / Characteristics Respiratory Depth Blood Pressure 111/70 Blood Pressure Mean 79 Blood Pressure Position Pulse Oximetry 100 98 Oxygen Delivery Method Sepsis Recent Fever Within 48 Hours Sepsis New/Unexplained Change in Mental Status Sepsis Action Taken by Nursing 05/08/23 10:00 05/08/23 10:00 05/08/23 10:30 Temperature Temperature Source Pulse Rate 77 77 Pulse Rate from SpO2 Sensor Respiratory Rate 18 15 Respiratory Effort / Characteristics Respiratory Depth Blood Pressure 93/64 L Blood Pressure Mean 78 Blood Pressure Position Pulse Oximetry Oxygen Delivery Method Sepsis Recent Fever Within 48 Hours Sepsis New/Unexplained Change in Mental Status Sepsis Action Taken by Nursing 05/08/23 10:30 Temperature Temperature Source Pulse Rate Pulse Rate from SpO2 Sensor Respiratory Rate Respiratory Effort / Characteristics Respiratory Depth Blood Pressure 116/64 Blood Pressure Mean 83 Blood Pressure Position Pulse Oximetry 94 Oxygen Delivery Method Sepsis Recent Fever Within 48 Hours Sepsis New/Unexplained Change in Mental Status Sepsis Action Taken by Longterm Medications Current Medication List: was personally reviewed by me Laboratory Data Attestation: I reviewed the patient's lab results. 05/09/23 05:44 05/09/23 05:44 Lab Results 05/08/23 05/08/23 05/08/23 Range/Units 07:32 07:40 07:48 WBC 9.24 (4.8-10.8) K/ul RBC 3.54 L (4.20-5.40) M/uL Hgb 9.7 L (12.0-16.0) g/dl POC Hgb 9.9 L (12.0-16.0) g/dl Hct 31.4 L (37.0-47.0) % POC Hct 29 L (37-47) % MCV 88.7 (80.0-100.0) fL MCH 27.4 (25.0-34.0) pg MCHC 30.9 L (32.0-36.0) g/dL RDW Std Deviation 46.5 H (36.4-46.3) fL RDW Coeff of [place] 14.5 (11.5-14.5) % Plt Count 323 (130-400) K/uL MPV 10.4 (9.4-12.4) fL Immature Gran % (Auto) 1.3 % Neut % (Auto) 66.0 % Lymph % (Auto) 18.1 % [place] % (Auto) 10.5 % Eos % (Auto) 2.8 % Baso % (Auto) 1.3 % Neut # (Auto) 6.10 (1.40-6.50) K/uL Lymph # (Auto) 1.67 (1.20-3.40) K/uL [place] # (Auto) 0.97 H (0.11-0.59) K/uL Eos # (Auto) 0.26 (0.00-0.50) K/uL Baso # (Auto) 0.12 (0.00-0.20) K/uL Immature Gran # (Auto) 0.12 (0.01-0.20) K/uL PT 13.3 H (9.0-12.0) Seconds INR 1.2 H (0.9-1.1) APTT 27 (21-31) Seconds PTT Ratio 1.0 POC Sodium 138 (135-144) mmol/L Sodium 137 (136-145) mmol/L POC Potassium 4.4 (3.3-5.0) mmol/L Potassium 4.3 (3.5-5.1) mmol/L POC Chloride 104 (101-112) mmol/L Chloride 104 (98-107) mmol/L Carbon Dioxide 23 (21-32) mmol/L POC Total CO2 21 L (24-31) mmol/L Anion Gap 10 (3-11) POC Anion Gap 18.0 (16-25) mmol/L POC BUN 8 (7-18) mg/dl BUN 10 (6-23) mg/dl Creatinine 1.22 H (0.6-1.2) mg/dl POC Creatinine 1.2 (0.6-1.3) mg/dl Est Cr Clr Drug Dosing 39.5 ml/min Est GFR ( Amer) 53.1 ml/min Est GFR (Non-Af Amer) 45.8 ml/min BUN/Creatinine Ratio 8.2 L (10-20) Glucose 207 H (70-99(Fasting)) mg/dl POC Glucose (other) 192 H (70-99) mg/dl Calcium 8.3 L (8.6-10.3) mg/dl POC Ioniz Calcium Neil 1.05 L (1.12-1.32) mmol/l Magnesium 1.9 (1.7-2.4) mg/dl Total Bilirubin 0.5 (0.2-1.0) mg/dl AST 18 (13-39) U/L ALT 11 (7-52) U/L Alkaline Phosphatase 136 H (34-104) U/L Total Protein 6.9 (6.0-8.3) gm/dl Albumin 3.1 L (3.4-5.0) gm/dl Globulin 3.8 (2.5-4.0) gm/dl Albumin/Globulin Ratio 0.8 L (0.9-2) POC Stool Occult Blood Positive A (Negative) Blood Type Blood Type Recheck Antibody Screen Crossmatch 05/08/23 05/08/23 Range/Units 08:25 09:25 WBC (4.8-10.8) K/ul RBC (4.20-5.40) M/uL Hgb (12.0-16.0) g/dl POC Hgb (12.0-16.0) g/dl Hct (37.0-47.0) % POC Hct (37-47) % MCV (80.0-100.0) fL MCH (25.0-34.0) pg MCHC (32.0-36.0) g/dL RDW Std Deviation (36.4-46.3) fL RDW Coeff of [place] (11.5-14.5) % Plt Count (130-400) K/uL MPV (9.4-12.4) fL Immature Gran % (Auto) % Neut % (Auto) % Lymph % (Auto) % [place] % (Auto) % Eos % (Auto) % Baso % (Auto) % Neut # (Auto) (1.40-6.50) K/uL Lymph # (Auto) (1.20-3.40) K/uL [place] # (Auto) (0.11-0.59) K/uL Eos # (Auto) (0.00-0.50) K/uL Baso # (Auto) (0.00-0.20) K/uL Immature Gran # (Auto) (0.01-0.20) K/uL PT (9.0-12.0) Seconds INR (0.9-1.1) APTT (21-31) Seconds PTT Ratio POC Sodium (135-144) mmol/L Sodium (136-145) mmol/L POC Potassium (3.3-5.0) mmol/L Potassium (3.5-5.1) mmol/L POC Chloride (101-112) mmol/L Chloride (98-107) mmol/L Carbon Dioxide (21-32) mmol/L POC Total CO2 (24-31) mmol/L Anion Gap (3-11) POC Anion Gap (16-25) mmol/L POC BUN (7-18) mg/dl BUN (6-23) mg/dl Creatinine (0.6-1.2) mg/dl POC Creatinine (0.6-1.3) mg/dl Est Cr Clr Drug Dosing ml/min Est GFR ( Amer) ml/min Est GFR (Non-Af Amer) ml/min BUN/Creatinine Ratio (10-20) Glucose (70-99(Fasting)) mg/dl POC Glucose (other) (70-99) mg/dl Calcium (8.6-10.3) mg/dl POC Ioniz Calcium Neil (1.12-1.32) mmol/l Magnesium (1.7-2.4) mg/dl Total Bilirubin (0.2-1.0) mg/dl AST (13-39) U/L ALT (7-52) U/L Alkaline Phosphatase (34-104) U/L Total Protein (6.0-8.3) gm/dl Albumin (3.4-5.0) gm/dl Globulin (2.5-4.0) gm/dl Albumin/Globulin Ratio (0.9-2) POC Stool Occult Blood (Negative) Blood Type O Positive Blood Type Recheck O Positive Antibody Screen NEGATIVE Crossmatch See Detail Administered Medications Discontinued Medications Sodium Chloride (Nss) 1,000 mls @ 150 mls/hr IV .Q6H40M STA Stop: 05/08/23 14:11 Last Infusion: 05/08/23 11:26 Dose: Infused Documented By: Admin: 05/08/23 07:46 Dose: 150 mls/hr Documented By: RUFUS Ciprofloxacin (Cipro / D5w) 400 mg in 200 mls @ 100 mls/hr IV NOW STA Stop: 05/08/23 11:55 Last Infusion: 05/08/23 12:04 Dose: Infused Documented By: Admin: 05/08/23 10:04 Dose: 100 mls/hr Documented By: RUFUS Metronidazole (Flagyl) 500 mg in 100 mls @ 100 mls/hr IV NOW STA Stop: 05/08/23 10:56 Last Infusion: 05/08/23 11:04 Dose: Infused Documented By: Admin: 05/08/23 10:04 Dose: 100 mls/hr Documented By: RUFUS Lactated Ringer's (Lr) 1,000 mls @ 100 mls/hr IV .Q10H YAMIL Stop: 05/10/23 03:29 Last Infusion: 05/09/23 12:25 Dose: Infused Documented By: Admin: 05/09/23 08:53 Dose: 100 mls/hr Documented By: Infusion: 05/09/23 08:53 Dose: Infused Documented By: Admin: 05/09/23 02:52 Dose: 100 mls/hr Documented By: Infusion: 05/09/23 01:32 Dose: Infused Documented By: Admin: 05/08/23 11:26 Dose: 100 mls/hr Documented By: NEERAJ Pantoprazole Sodium 40 mg/ (Syringe) 10 mls @ 5 mls/min IV DAILY@1100 YAMIL Stop: 06/07/23 11:59 Last Admin: 05/09/23 10:59 Dose: 5 mls/min Documented By: Admin: 05/08/23 11:54 Dose: 5 mls/min Documented By: NEERAJ Ciprofloxacin (Cipro / D5w) 400 mg in 200 mls @ 100 mls/hr IV Q12H YAMIL; Protocol Stop: 05/18/23 21:59 Last Infusion: 05/09/23 12:24 Dose: Infused Documented By: Admin: 05/09/23 11:03 Dose: 100 mls/hr Documented By: Infusion: 05/09/23 01:32 Dose: Infused Documented By: Admin: 05/08/23 23:32 Dose: 100 mls/hr Documented By: DEBORA Metronidazole (Flagyl) 500 mg in 100 mls @ 100 mls/hr IV Q8H YAMIL; Protocol Stop: 05/18/23 17:59 Last Infusion: 05/09/23 10:49 Dose: Infused Documented By: Admin: 05/09/23 09:03 Dose: 100 mls/hr Documented By: Infusion: 05/09/23 02:49 Dose: Infused Documented By: Admin: 05/09/23 01:37 Dose: 100 mls/hr Documented By: Infusion: 05/08/23 19:08 Dose: Infused Documented By: Admin: 05/08/23 17:50 Dose: 100 mls/hr Documented By: HALIMA Insulin Aspart (Insulin Aspart Per Unit Charge) 0 units SC ACHS [facility] Stop: 06/07/23 16:29 Last Admin: 05/09/23 12:19 Dose: 5 units Documented By: CATHY Co-signed By: DEO Admin: 05/09/23 09:30 Dose: Not Given Documented By: Admin: 05/08/23 20:47 Dose: Not Given Documented By: DEBORA Co-signed By: FLORENCE Admin: 05/08/23 17:31 Dose: Not Given Documented By: SHAYAN Co-signed By: ROXI Insulin Glargine (Lantus Per Unit Charge) 11 units SQ BID [facility] Stop: 06/07/23 15:44 Last Admin: 05/08/23 17:30 Dose: 11 units Documented By: SHAYAN Co-signed By: ROXI Insulin Glargine (Lantus Per Unit Charge) 11 units SQ QAM [facility] Stop: 06/08/23 08:59 Last Admin: 05/09/23 08:53 Dose: Not Given Documented By: SIDDHARTH Ioversol (Optiray 320 500ml) 94 ml IV ONCE ONE Stop: 05/08/23 08:46 Last Admin: 05/08/23 08:46 Dose: 94 ml Documented By: ANTHONY Venlafaxine HCl (Venlafaxine Hcl Xr 150 Mg Capxr) 150 mg PO DAILY [facility] Stop: 06/07/23 15:59 Last Admin: 05/09/23 08:55 Dose: 150 mg Documented By: Admin: 05/08/23 17:31 Dose: 150 mg Documented By: SHAYAN Imaging Data Radiologist's Impression: Abdomen/Pelvis CT 05/08/23 08:[address] WITH IV CONTRAST CT DOSE: 1113.99 mGy.cm HISTORY: Bright red blood per rectum. TECHNIQUE: Multiaxial CT images of the abdomen and pelvis were performed following the use of intravenous contrast. A dose lowering technique was utilized adhering to the principles of ALARA. COMPARISON STUDY: Abdomen and pelvis CT 04/23/2023. FINDINGS: There is an 8 mm groundglass nodule within the right middle lobe on image 8. There is a 5 mm subpleural nodule within the right lower lobe on image 53. Mild emphysema the lung bases. No pneumoperitoneum. No pneumatosis. No acute fractures identified. There are poststernotomy changes. Nodular contour to the liver consistent with cirrhosis. No hepatic or splenic masses. The spleen remains top normal in size. The main portal vein appears patent. The major mesenteric vessels are patent. There is mild calcified plaque within the normal caliber abdominal aorta. Prominent periportal lymph nodes remain unchanged. There is a small gallstone. No gallbladder wall thickening. The pancreas enhances normally. No hydronephrosis. Mild heterogeneous enhancement within the kidneys, left greater than right, has improved in the interval. Mild urothelial thickening within the left renal pelvis has also improved. Therefore, this suggests resolving acute pyelonephritis. Normal adrenal glands. Upper abdominal and paraesophageal varices again noted. No pelvic lymphadenopathy or pelvic free fluid. Mild bladder wall thickening may be due to underdistention. The uterus and adnexa are unremarkable. Small rectal hemorrhoids are suggested. No dilated loops of bowel to suggest an obstruction. Colonic diverticulosis. There is a single inflamed diverticulum with surrounding fat stranding within the mid descending colon on image 175. Therefore, this likely represents a mild acute diverticulitis. No perforation or abscess at this time. Normal appendix. No dilated loops of bowel to suggest an obstruction. Fluid-filled nondilated distal colon. This could represent a diarrheal illness. IMPRESSION: 1. Mild acute diverticulitis involving the mid descending colon. No perforation or abscess. 2. Mild heterogeneous enhancement within the kidneys which has improved on the left. The left perinephric fat stranding has also improved. This suggests a resolving acute pyelonephritis. 3. Cirrhotic liver with varices formation and small rectal hemorrhoids consistent with underlying portal hypertension. No ascites. 4. An 8 mm groundglass nodule within the right middle lobe and a 5 mm subpleural nodule within the right lower lobe. Please refer to the chart below for recommended follow-up. 5. Cholelithiasis. 6. Additional findings as described above. Please refer to below summary of Fleischner criteria recommendations for follow- up of incidental CT nodules (Toñito Hernadez, Guidelines for management of small pulmonary nodules detected on CT scans: A statement from the Fleischner Society, Radiology 237: [id number].) SOLID NODULES Solitary nodule size: <6 mm * Low risk patients: no follow-up needed * high risk patients: optional CT at 12 months Solitary nodule size: 6-8 mm * Low risk patients: follow-up at 6-12 months, then consider further follow-up at 18-24 months * high risk patients: initial follow-up CT at 6-12 months and then at 18-24 months if no change Solitary nodule size: >8 mm * either low or high risk patients - consider follow-up CT at 3 months, and/or CT-PET, and/or biopsy Multiple nodules size: <6 mm * Low risk patients: no routine follow-up * high risk patients: optional CT at 12 months Multiple nodules size: 6-8 mm * Low risk patients: follow-up at 3-6 months, then consider further follow-up at 18-24 months * high risk patients: follow-up at 3-6 months, then at 18-24 months if no change Multiple nodules size: >8 mm * Low risk patients: follow-up at 3-6 months, then consider further follow-up at 18-24 months * high risk patients: follow-up at 3-6 months, then at 18-24 months if no change Note: newly detected indeterminate nodule in persons 35 years of age or older. * Low risk patients: minimal or absent history of smoking and/or other known risk factors * high risk patients: history of smoking or of other known risk factors (e.g. first degree relative with lung cancer, or exposure to asbestos, radon, uranium) * if a nodule up to 8 mm is partly solid or is ground glass further follow-up is required after 24 months to exclude possible slow growing adenocarcinoma (CARI) SUBSOLID NODULES Solitary pure ground-glass nodule * nodule size <6 mm - no CT follow-up required * nodule size >=6 mm - follow-up CT at 6-12 months, then every 2 years until 5 years Solitary part-solid nodule * nodule size <6 mm - no CT follow-up required * nodule size >=6 mm - follow-up CT at 3-6 months. If unchanged, and solid component remains <6 mm, then annual follow-up for 5 years Multiple subsolid nodules * nodule size <6 mm - follow-up CT at 3-6 months, consider further follow-up at 2 and 4 years if stable * nodule size >=6 mm - follow-up CT at 3-6 months, subsequent management based on the most suspicious nodule(s) ACT 112: Negative or not required by law. Electronically signed by: Jaycob Altman M.D. 05/08/2023 9:08 AM Discharge Plan Visit Data Chief Complaint: GI Assessment Stated Complaint: BLOOD IN BOWELS ED Provider: Francisca Malik Discharge Problem: Acute lower gastrointestinal bleeding, Liver cirrhosis, Diverticulitis, ABLA (acute blood loss anemia) Patient Disposition: Admitted As Inpatient Discharge Instructions Interventions: ED Discharge Assessment Last Done: 05/08/23 15:39 Discharge Problem: Liver cirrhosis Qualifiers: Hepatic cirrhosis type: other cirrhosis Qualified Code(s): K74.69 - Other cirrhosis of liver
[2023-05-08] MEDS ORDERED: metroNIDAZOLE 500 MG/100 ML BAG IV STA (09:57)
--- NOTE | 2023-05-08 10:30 | History & Physical Report ---
Date of Service May 08, 2023 Assessment & Plan (1) Diverticulitis: Plan: BRB in rectum during bowel movement the morning of 05/08 Recent [facility] admission from 04/23 - 05/01 for pyelonephritis No blood thinners Stool occult blood positive Hgb 9.7 and HCT 31.4 on arrival Trend H&H x 2 Type and cross ordered, blood consented, and 2u PRBCs ordered/held if needed No leukocytosis; afebrile Abdomen/pelvic CT revealed mild acute diverticulitis involving the mid descending colon No perforation or abscess Resolving acute pyelonephritis 8 mm groundglass nodule in the right middle lobe; consider 3-6mo follow-up Patient denies hx of diverticulitis / past experience like this one; fam hx of diverticulitis Keep n.p.o. except for medications Pain control with acetaminophen p.o.; Dilaudid IV for breakthrough pain Continue IV resuscitation with LR at 100 mL/hr x 4 Trochlear diet for 24-48 hours, and advance diet as tolerated Ciprofloxacin and Flagyl started in the ED Continue Flagyl 500 mg IV q8h Continue ciprofloxacin 400 mg IV q12h Consider repeat imaging (abdomen/pelvic CT) if disease progression suspected with clinical deterioration A.m. CBC, BMP (2) Type 2 diabetes mellitus: Plan: Last A1c at 13.3% on 04/24/2023; no need to repeat Glucose 192 on admission Hold metformin, Jardiance Patient is normally on Lantus 22u QAM Will decrease to Lantus 11u QAM while inpatient; reduced in the setting of mild GERARDO SSI; with target BSG range 110-140mg/dL, CF 60, carb ratio 20 T2DM diet BSG q6h while NPO; then switch to BSG ACHS when eating Adjust regimen as needed (3) Hypertension: Plan: BP 116/64 at presentation Patient does not technically meet criteria for GERARDO (serum creatinine 1.22 w/ baseline 0.89; <1.5x baseline within 7 days) However, we will hold lisinopril for now Consider restarting lisinopril after fluid resuscitation with LR (as above) (4) S/P CABG x 3: Plan: Hold aspirin for now; restart when rectal bleed subsides (5) CHF (congestive heart failure): Plan: Chronic; stable Last echo on 12/01/2021 revealed LVEF at 65-70% Hold furosemide as needed (6) GERD without esophagitis: Plan: Hold p.o. pantoprazole Pantoprazole 40 mg IV QAM (7) Depression: Plan: Continue venlafaxine (8) Hypothyroidism (acquired): Plan: Hold levothyroxine; can restart once no longer n.p.o. (9) Liver cirrhosis: Plan: Chronic; noted Plan Disposition: [facility] Full code Keep n.p.o. (except for some p.o. meds) for now, then advance diet as tolerated VTE PPx: SCDs (hold chemical DVT PPx in the setting of rectal bleed) History of Present Illness Chief Complaint: Bright red blood in rectum Primary Care Provider: PRABHA Ramirez Noy is a 67yo female with PMH of T2DM, HTN, HLD, hypothyroidism, depression, asthma, liver cirrhosis, aortic valve replacement, s/p CABG x 3, GERD, splenomegaly, CHF, and portal hypertension. She presented for bright red blood in rectum during bowel movement the morning of 05/08. She notes that she woke up at 0530 and had a bowel movement with bright red blood and clots. She is not currently experiencing abdominal pain, or pain anywhere. She has never had an experience quite like this. She has a brother who has had a history of diverticulitis. Patient notes that she does have hemorrhoids. She did not take her morning medications today, including her Lantus 22u. Patient notes she went to her PCPs office last week for blood in her urine and a UTI; she was prescribed Bactrim 800-160 mg BID x 7 days, which she has been taking outpatient since 05/03. She notes that she has recently been trying to change her diet to cut down on her sugar. Recent [facility] hospital admission from 04/23 - 05/01 for pyelonephritis. She denies smoking, tobacco use, alcohol use, and recreational drug use. Vital stable at time of admission. ED Course: NSS 1000 mL IV Ciprofloxacin 400 mg IV Flagyl 500 mg IV ROS: Patient endorses dizziness (ongoing), dry cough, nausea (which has been ongoing in the mornings), and blood in urine (resolved with bactrim use). Patient denies fever, chills, sweats, headache, chest pain, pleuritic CP, SOB, hemoptysis, abdominal pain, vomiting, diarrhea, back pain, burning with urination, dysuria, or numbness/tingling/pain in the legs. Allergies Allergy/AdvReac Type Severity Reaction Status Date / Time Penicillins Allergy Intermediate CAN'T Verified 04/23/23 18:18 REMEMBER Tetanus Vaccines and Toxoid Allergy Mild ARM Verified 12/12/22 12:22 SWELLING-HOT TO TOUCH Home Medications Medication Instructions Recorded Confirmed Type pen needle, diabetic 32 gauge x #100 ea 06/09/20 12/12/22 Rx 5/32" (BD Ultra-Fine Ruth Pen Needle) furosemide 20 mg tablet 20 mg PO DAILY PRN weight gain #30 04/11/22 05/08/23 Rx tabs pantoprazole 40 mg tablet,delayed 40 mg PO DAILY #90 tabs 04/11/22 05/08/23 Rx release (Protonix) atorvastatin 20 mg tablet 20 mg PO QPM #90 tabs 05/31/22 05/08/23 Rx aspirin 81 mg tablet,delayed 81 mg PO DAILY #90 tabs 07/12/22 05/08/23 Rx release empagliflozin 25 mg tablet 25 mg PO DAILY #90 tabs 08/04/22 05/08/23 Rx levothyroxine 88 mcg tablet 88 mcg PO DAILY #30 tabs 08/04/22 05/08/23 Rx lisinopril 5 mg tablet 5 mg PO DAILY #90 tabs 08/04/22 05/08/23 Rx baclofen 5 mg tablet 5 mg PO BID #20 tabs 12/12/22 05/08/23 Rx metformin 1,000 mg tablet 1,000 mg PO BID #180 tabs 01/23/23 05/08/23 Rx venlafaxine 150 mg 150 mg PO DAILY #90 caps 03/01/23 05/08/23 Rx capsule,extended release 24 hr insulin glargine 100 unit/mL (3 22 unit subcut QAM 04/23/23 05/08/23 History mL) subcutaneous pen (Lantus Solostar U-100 Insulin) Past Med/Surg History Medical History (Updated 05/08/23 @ 10:24 by Jaycob Terry PA-C) Varices of other sites Portal hypertension Splenomegaly Liver cirrhosis GERD without esophagitis CAD (coronary artery disease) (11/29/20) MOREL-LAD, Ao-PDA, Ao-OM with reversed saphenous vein Moderate mitral regurgitation Mitral valve annular calcification Severe calcific aortic valve stenosis Vitamin deficiency Abdominal aortic aneurysm Heart murmur Acid reflux Fatty liver Anemia Acne Depression Hypertension Hypothyroidism (acquired) Hypercholesterolemia Type 2 diabetes mellitus Surgical History Status post device closure of ASD (11/29/20) Aortic valve replaced (11/29/20) with annular enlargement, 21 mm Inspiris Bioprosthetic valve S/P CABG x 3 H/O tubal ligation Status post hernia repair x3 Endometriosis Family History Father Stomach cancer Daughter Diabetes Heart disease Hypertension Mother Diabetes Sister No problems noted. Son Heart disease Hypertension Grandfather Myocardial infarction Denies family history of Ovarian cancer Prostate cancer Breast cancer Colorectal cancer Social History Smoking Status: Never smoker Second Hand Exposure: No; Do You Dip or Chew Tobacco: No; Hx Alcohol Use: No Hx Substance Use: No Preferred Language: German Communication Ability: Effective Hearing Ability: Normal Pharmacy Resident Required: No Beliefs That Will Affect Care: None marital status: Current Living Situation: Parent current occupational status: unemployed current occupation: homemaker How many Children do You have: 5 Other Information That Helps Us Care for You: No Feels Safe at Home: Yes Safety Concerns: Feels Safe At This Time Childhood Exposure to Second-Hand Smoke: Yes Diet: regular caffeine: No during the past year weight has: remained stable Dental Care, Regularly: No Physical Activity Frequency: Does not Exercise Seatbelt Use: sometimes Sunscreen Use: Yes (sometimes) Assistive Devices: Glasses Review of Systems Review of Systems: See HPI above Physical Exam Physical Exam: General: no acute distress; pleasant affect; non-toxic appearing; well- nourished; cooperative HEENT: normocephalic, atraumatic; PERRLA; moist mucus membrane; vision and hearing grossly intact Neck: supple; negative for JVD; no lymphadenopathy; trachea midline Skin: warm, dry without signs of tenting; no cyanosis; no rashes, bruising, lesions, or erythema noted CV: chest wall NTP; RRR; S1/S2 normal; 2/6 systolic ejection murmur noted at second ICS MCL; pulses intact and symmetric at radial, DP, and PT Lungs: no acute respiratory distress; symmetrical chest wall expansion; clear breath sounds across all lung raya w/o adventitious sounds; no wheezing ABD: Soft, NTP; LUQ NTP; BS present; no rebound/guarding; mild ascites; negative CVA tenderness; no rashes or bruising noted on the back or abdomen MSK: no tics or fasciculations; no edema noted in the LEs b/l, nonerythematous Neuro: A&Ox3; normal mood and affect; fluent speech; no focal deficits; sensation grossly intact in the LEs B/L Results & Data Results & Data Vital Signs (Past 12 Hours) Vital Signs Temp Pulse Resp BP Pulse Ox O2 Del Method 05/08/23 09:31 76 17 98 05/08/23 09:31 111/70 05/08/23 09:30 75 18 100 05/08/23 09:00 77 13 100 05/08/23 09:00 122/60 05/08/23 08:37 77 14 05/08/23 08:10 138/67 05/08/23 08:10 84 17 99 05/08/23 08:00 80 17 99 05/08/23 08:00 107/60 05/08/23 07:46 97/81 L 05/08/23 07:46 83 16 05/08/23 07:37 91 H 05/08/23 07:32 86 19 05/08/23 07:11 36.3 C L 94 H 18 106/69 99 Room Air Laboratory Results Abnormal lab results 05/08/23 05/08/23 05/08/23 Range/Units 07:32 07:40 07:48 RBC 3.54 L (4.20-5.40) M/uL Hgb 9.7 L (12.0-16.0) g/dl POC Hgb 9.9 L (12.0-16.0) g/dl Hct 31.4 L (37.0-47.0) % POC Hct 29 L (37-47) % MCHC 30.9 L (32.0-36.0) g/dL RDW Std Deviation 46.5 H (36.4-46.3) fL [place] # (Auto) 0.97 H (0.11-0.59) K/uL PT 13.3 H (9.0-12.0) Seconds INR 1.2 H (0.9-1.1) POC Total CO2 21 L (24-31) mmol/L Creatinine 1.22 H (0.6-1.2) mg/dl BUN/Creatinine Ratio 8.2 L (10-20) Glucose 207 H (70-99(Fasting)) mg/dl POC Glucose (other) 192 H (70-99) mg/dl Calcium 8.3 L (8.6-10.3) mg/dl POC Ioniz Calcium Neil 1.05 L (1.12-1.32) mmol/l Alkaline Phosphatase 136 H (34-104) U/L Albumin 3.1 L (3.4-5.0) gm/dl Albumin/Globulin Ratio 0.8 L (0.9-2) POC Stool Occult Blood Positive A (Negative) Crossmatch 05/08/23 Range/Units 08:25 RBC (4.20-5.40) M/uL Hgb (12.0-16.0) g/dl POC Hgb (12.0-16.0) g/dl Hct (37.0-47.0) % POC Hct (37-47) % MCHC (32.0-36.0) g/dL RDW Std Deviation (36.4-46.3) fL [place] # (Auto) (0.11-0.59) K/uL PT (9.0-12.0) Seconds INR (0.9-1.1) POC Total CO2 (24-31) mmol/L Creatinine (0.6-1.2) mg/dl BUN/Creatinine Ratio (10-20) Glucose (70-99(Fasting)) mg/dl POC Glucose (other) (70-99) mg/dl Calcium (8.6-10.3) mg/dl POC Ioniz Calcium Neil (1.12-1.32) mmol/l Alkaline Phosphatase (34-104) U/L Albumin (3.4-5.0) gm/dl Albumin/Globulin Ratio (0.9-2) POC Stool Occult Blood (Negative) Crossmatch See Detail Diagnostic Findings Abdomen/Pelvis CT 05/08/23 08:[address] WITH IV CONTRAST CT DOSE: 1113.99 mGy.cm HISTORY: Bright red blood per rectum. TECHNIQUE: Multiaxial CT images of the abdomen and pelvis were performed following the use of intravenous contrast. A dose lowering technique was utilized adhering to the principles of ALARA. COMPARISON STUDY: Abdomen and pelvis CT 04/23/2023. FINDINGS: There is an 8 mm groundglass nodule within the right middle lobe on image 8. There is a 5 mm subpleural nodule within the right lower lobe on image 53. Mild emphysema the lung bases. No pneumoperitoneum. No pneumatosis. No acute fractures identified. There are poststernotomy changes. Nodular contour to the liver consistent with cirrhosis. No hepatic or splenic masses. The spleen remains top normal in size. The main portal vein appears patent. The major mesenteric vessels are patent. There is mild calcified plaque within the normal caliber abdominal aorta. Prominent periportal lymph nodes remain unchanged. There is a small gallstone. No gallbladder wall thickening. The pancreas enhances normally. No hydronephrosis. Mild heterogeneous enhancement within the kidneys, left greater than right, has improved in the interval. Mild urothelial thickening within the left renal pelvis has also improved. Therefore, this suggests resolving acute pyelonephritis. Normal adrenal glands. Upper abdominal and paraesophageal varices again noted. No pelvic lymphadenopathy or pelvic free fluid. Mild bladder wall thickening may be due to underdistention. The uterus and adnexa are unremarkable. Small rectal hemorrhoids are suggested. No dilated loops of bowel to suggest an obstruction. Colonic diverticulosis. There is a single inflamed diverticulum with surrounding fat stranding within the mid descending colon on image 175. Therefore, this likely represents a mild acute diverticulitis. No perforation or abscess at this time. Normal appendix. No dilated loops of bowel to suggest an obstruction. Fluid-filled nondilated distal colon. This could represent a diarrheal illness. IMPRESSION: 1. Mild acute diverticulitis involving the mid descending colon. No perforation or abscess. 2. Mild heterogeneous enhancement within the kidneys which has improved on the left. The left perinephric fat stranding has also improved. This suggests a resolving acute pyelonephritis. 3. Cirrhotic liver with varices formation and small rectal hemorrhoids consistent with underlying portal hypertension. No ascites. 4. An 8 mm groundglass nodule within the right middle lobe and a 5 mm subpleural nodule within the right lower lobe. Please refer to the chart below for recommended follow-up. 5. Cholelithiasis. 6. Additional findings as described above. Please refer to below summary of Fleischner criteria recommendations for follow- up of incidental CT nodules (Toñito Hernadez, Guidelines for management of small pulmonary nodules detected on CT scans: A statement from the Fleischner Society, Radiology 237: [phone].) SOLID NODULES Solitary nodule size: <6 mm * Low risk patients: no follow-up needed * high risk patients: optional CT at 12 months Solitary nodule size: 6-8 mm * Low risk patients: follow-up at 6-12 months, then consider further follow-up at 18-24 months * high risk patients: initial follow-up CT at 6-12 months and then at 18-24 months if no change Solitary nodule size: >8 mm * either low or high risk patients - consider follow-up CT at 3 months, and/or CT-PET, and/or biopsy Multiple nodules size: <6 mm * Low risk patients: no routine follow-up * high risk patients: optional CT at 12 months Multiple nodules size: 6-8 mm * Low risk patients: follow-up at 3-6 months, then consider further follow-up at 18-24 months * high risk patients: follow-up at 3-6 months, then at 18-24 months if no change Multiple nodules size: >8 mm * Low risk patients: follow-up at 3-6 months, then consider further follow-up at 18-24 months * high risk patients: follow-up at 3-6 months, then at 18-24 months if no change Note: newly detected indeterminate nodule in persons 35 years of age or older. * Low risk patients: minimal or absent history of smoking and/or other known risk factors * high risk patients: history of smoking or of other known risk factors (e.g. first degree relative with lung cancer, or exposure to asbestos, radon, uranium) * if a nodule up to 8 mm is partly solid or is ground glass further follow-up is required after 24 months to exclude possible slow growing adenocarcinoma (CARI) SUBSOLID NODULES Solitary pure ground-glass nodule * nodule size <6 mm - no CT follow-up required * nodule size >=6 mm - follow-up CT at 6-12 months, then every 2 years until 5 years Solitary part-solid nodule * nodule size <6 mm - no CT follow-up required * nodule size >=6 mm - follow-up CT at 3-6 months. If unchanged, and solid component remains <6 mm, then annual follow-up for 5 years Multiple subsolid nodules * nodule size <6 mm - follow-up CT at 3-6 months, consider further follow-up at 2 and 4 years if stable * nodule size >=6 mm - follow-up CT at 3-6 months, subsequent management based on the most suspicious nodule(s) ACT 112: Negative or not required by law. Electronically signed by: Jaycob Altman M.D. 05/08/2023 9:08 AM Code Status & VTE Plan Code Status Full code VTE Prophylaxis Plan VTE Prophylaxis will be ordered: Yes Supervising Physician Co-Signing Physician Notes I personally saw and examined the patient. I independently reviewed the labs, EKG, imaging, problem list, medication list, past medical history and family history. I verified all butler points and agree with Jaycob Terry PA-C with the following exceptions and/or additions: 67 year old female presents to the ER with rectal bleeding. No chest pain, shortness of breath or dizziness. Initial hemoglobin 9.7 in the ER. Recent hospitalization Apr 23 - 2023 for Pyelonephritis. She was not discharged on any antibiotics. O/E HS RRR, no murmurs, Chest CTAB, Abdo SNT, no CVA tenderness A/P Acute diverticulitis - no pain on exam therefore suspect we can advance diet relatively quickly if rectal bleeding subsides. Continue ciprofloxacin + metronidazole. NPO. IV fluids. Rectal bleeding - suspected hemorrhoids vs. diverticular bleed. Transfuse to aim Hgb > 7. PG Care Time/CCT Total # of Minutes Spent Total Time Spent with Patient: Total time spent is greater than 50% in coordination of care (as documented) at patient's floor/unit and/or counseling patient: C[place] [address] INT INP/OBS CARE 2/55MIN Patient Type Established Medical Decision Making High Complexity Diagnoses Diverticulitis K57.92 Type 2 diabetes mellitus E11.9 Hypertension I10 S/P CABG x 3 Z95.1 CHF (congestive heart failure) I50.9 Heart failure chronicity: unspecified Heart failure type: unspecified GERD without esophagitis K21.9 Depression F32.9 Hypothyroidism (acquired) E03.9 Liver cirrhosis K74.60 (5) CHF (congestive heart failure) Heart failure chronicity: unspecified Heart failure type: unspecified Qualified Code(s): I50.9 - Heart failure, unspecified
[2023-05-08] MEDS: LACTATED RINGER'S 1,000 ML IV SCH (11:26)
[2023-05-08] MEDS: PANTOprazole 40 MG in SYRINGE 0 ML IV SCH (11:54)
[2023-05-08 12:21] LABS: Magnesium 1.9 mg/dl (1.7-2.4)
[2023-05-08 14:31] LABS: Hemoglobin 7.6 g/dl (12.0-16.0)
[2023-05-08] MEDS ORDERED: DEXTROSE 50% 50 ML SYRINGE IV PRN (15:39)
[2023-05-08] MEDS ORDERED: GLUCAGON FOR INJ 1 MG VIAL SQ PRN (15:39)
[2023-05-08] MEDS ORDERED: ACETAMINOPHEN 325 MG TAB PO PRN (15:39)
[2023-05-08] MEDS ORDERED: GLUCOSE 40% GEL 15 GM TUBE PO PRN (15:39)
[2023-05-08] MEDS ORDERED: ONDANSETRON INJ 2 MG/ML 2 ML VIAL IV PRN (15:39)
[2023-05-08] MEDS ORDERED: HYDROmorphone INJ 1 MG/ML SYRINGE IV PRN (15:39)
[2023-05-08] MEDS ORDERED: CARBOHYDRATES FOR HYPOGLYCEMIA PO PRN (15:39)
[2023-05-08] MEDS ORDERED: HYDROmorphone INJ 0.5 MG/0.5 ML SYR IV PRN (15:39)
[2023-05-08] MEDS ORDERED: GLUCOSE 10 TAB/TUBE PO PRN (15:39)
[2023-05-08] MEDS ORDERED: LANTUS PER UNIT CHARGE SQ SCH (15:45)
[2023-05-08] MEDS: INSULIN ASPART PER UNIT CHARGE SC SCH ×2 (17:31→20:47)
[2023-05-08] MEDS: VENLAFAXINE HCL XR 150 MG CAPXR PO SCH (17:31)
[2023-05-08] MEDS: metroNIDAZOLE 500 MG/100 ML BAG IV SCH (17:50)
[2023-05-08 18:56] LABS: Hematocrit (blood only) 23.1 % (37.0-47.0); Hemoglobin 7.1 g/dl (12.0-16.0)
[2023-05-08] MEDS: CIPROFLOXACIN / D5W 400 MG/200 ML BAG IV SCH (23:32)
[2023-05-09 00:59] LABS: Hematocrit (blood only) 25.8 % (37.0-47.0); Hemoglobin 8.1 g/dl (12.0-16.0)
[2023-05-09] MEDS: metroNIDAZOLE 500 MG/100 ML BAG IV SCH ×2 (01:37→09:03)
[2023-05-09] MEDS: LACTATED RINGER'S 1,000 ML IV SCH ×2 (02:52→08:53)
[2023-05-09 06:45] LABS: Basophils # (auto) 0.09 K/uL (0.00-0.20); Basophils % (auto) 1.6 %; Eosinophils # (auto) 0.17 K/uL (0.00-0.50); Eosinophils % (auto) 3.1 %; Hematocrit (blood only) 24.5 % (37.0-47.0); Hemoglobin 7.9 g/dl (12.0-16.0); Immature Granulocytes # (auto) 0.03 K/uL (0.01-0.20); Immature Granulocytes % (auto) 0.5 %; Lymphocytes # (auto) 1.66 K/uL (1.20-3.40); Lymphocytes % (auto) 29.8 %; Mean Corpuscular Hemoglobin 27.9 pg (25.0-34.0); Mean Corpuscular Hgb Conc 32.2 g/dL (32.0-36.0); Mean Corpuscular Volume 86.6 fL (80.0-100.0); Mean Platelet Volume 10.1 fL (9.4-12.4); Monocytes # (auto) 0.72 K/uL (0.11-0.59); Monocytes % (auto) 12.9 %; Neutrophils % (auto) 52.1 %; Platelet Count 200 K/uL (130-400); RDW Coefficient of Variation 14.9 % (11.5-14.5); RDW Standard Deviation 46.5 fL (36.4-46.3); Red Blood Count 2.83 M/uL (4.20-5.40); White Blood Count 5.57 K/ul (4.8-10.8)
--- NOTE | 2023-05-09 07:19 | Hospitalist Progress Note ---
Date of Service May 09, 2023 Assessment & Plan Plan 67yo female with PMH of T2DM, HTN, HLD, hypothyroidism, depression, asthma, liver cirrhosis, aortic valve replacement, s/p CABG x 3, GERD, splenomegaly, CHF, and portal hypertension here due to diverticulitis Diverticulitis: Bright red bleeding in rectum during bowel movement the morning of 05/08 Abdomen/pelvic CT revealed mild acute diverticulitis involving the mid descending colon. No perforation or abscess Type and cross ordered, blood consented, and 2u PRBCs ordered/held if needed No leukocytosis; afebrile NPO Pain control prn LR at 100 mL/hr x 4 Clear diet for 24-48 hours, and advance diet as tolerated Continue Flagyl 500 mg IV q8h Continue ciprofloxacin 400 mg IV q12h A.m. CBC, BMP REctal bleeding blood occult stool: positive drop on hgb Pyelonephritis: Recent [facility] admission from 04/23 - 05/01 - treated with Bactrim Abdomen CT: Resolving Renal insufficiency Cr: on admission 1.22 Not meet GERARDO criteria Today Cr: 1.20 trending down IVF- LR Follow CMP am Type 2 diabetes mellitus: Last A1c at 13.3% Hold [place] drew Patient is normally on Lantus 22u QAM Will decrease to Lantus 11u QAM while inpatient; reduced in the setting of mild GERARDO SSI; with target BSG range 110-140mg/dL, CF 60, carb ratio 20 T2DM diet BSG q6h while NPO; then switch to BSG ACHS when eating Adjust regimen as needed Groundless nodule right middle lobe: CT findings Consider 3-6 mo follow up outpatient Hypertension: BP 116/64 at presentation However, we will hold lisinopril for now - in the setting of renal insufficiency Consider restarting lisinopril after fluid resuscitation with LR S/P CABG x 3: Hold aspirin for now; restart when rectal bleed subsides CHF (congestive heart failure): Chronic; stable Last echo on 12/01/2021 revealed LVEF at 65-70% Hold furosemide as needed GERD without esophagitis: Hold p.o. pantoprazole Pantoprazole 40 mg IV QAM Depression: Continue venlafaxine Hypothyroidism (acquired): Hold levothyroxine; can restart once no longer n.p.o. Liver cirrhosis: Chronic; noted No ascitis Plan Disposition: [facility] Full code Keep n.p.o. (except for some p.o. meds) for now VTE PPx: SCDs (hold chemical DVT PPx in the setting of rectal bleed) Admission and Anticipated Discharge Date Admission Date: May 08, 2023 Neva Villafuerte is a 67yo female with PMH of T2DM, HTN, HLD, hypothyroidism, depression, asthma, liver cirrhosis, aortic valve replacement, s/p CABG x 3, GERD, splenomegaly, CHF, and portal hypertension. Admitted due to rectal bleeding and findings on CT of diverticulitis She was evaluated at bedside found awake in no acute distress. She denied any abdominal pain. Refers bleeding has stoped. Denied any Results & Data Results & Data Vital Signs (Past 12 Hours) Vital Signs Temp Pulse Pulse Resp BP BP Pulse Ox 05/09/23 07:06 72 05/09/23 05:00 73 14 98 05/09/23 05:00 73 16 139/73 98 05/09/23 04:30 74 18 100 05/09/23 04:00 69 14 99 05/09/23 04:00 76 16 118/65 98 05/09/23 03:38 73 05/09/23 03:30 76 16 98 05/09/23 03:00 69 16 110/58 L 99 05/09/23 03:00 71 12 97 05/09/23 02:30 74 21 99 05/09/23 02:00 72 10 L 100 05/09/23 02:00 111/64 05/09/23 01:45 75 16 107/51 L 98 05/09/23 01:36 86 15 97 05/09/23 01:00 74 9 L 97 05/09/23 01:00 77 12 107/51 L 99 05/09/23 00:30 77 10 L 99 05/09/23 00:00 79 19 91 05/09/23 00:00 119/64 05/08/23 23:57 78 15 116/65 94 05/08/23 23:30 78 16 116/65 96 05/08/23 23:30 77 15 97 05/08/23 23:20 120/68 05/08/23 23:20 78 16 96 05/08/23 23:10 77 14 97 05/08/23 23:10 112/62 05/08/23 23:09 77 16 112/62 95 01/16/24 23:00 118/59 L 05/08/23 23:00 77 16 96 05/08/23 22:50 118/62 05/08/23 22:50 78 16 97 05/08/23 22:40 127/60 05/08/23 22:40 77 19 94 05/08/23 22:30 76 13 93 05/08/23 22:30 121/58 L 05/08/23 22:20 74 8 L 90 05/08/23 22:20 118/59 L 05/08/23 22:10 78 15 05/08/23 22:10 119/59 L 05/08/23 22:09 77 12 119/59 L 94 05/08/23 22:00 76 14 86 L 05/08/23 22:00 117/61 05/08/23 21:50 77 7 L 87 L 05/08/23 21:50 117/55 L 05/08/23 21:40 75 4 L 95 05/08/23 21:40 117/54 L 05/08/23 21:39 37.1 C 76 12 117/54 L 95 05/08/23 21:30 79 12 98 05/08/23 21:30 113/59 L 05/08/23 21:24 123/59 L 05/08/23 21:24 77 13 98 05/08/23 21:24 37.1 C 78 18 123/59 L 96 05/08/23 21:15 118/64 05/08/23 21:15 78 14 98 05/08/23 21:09 81 14 99 05/08/23 21:09 132/64 05/08/23 21:07 37.1 C 80 18 132/64 98 05/08/23 21:00 113/57 L 05/08/23 21:00 78 22 98 05/08/23 20:30 78 24 96 05/08/23 20:00 76 17 97 05/08/23 20:00 105/63 05/08/23 19:30 78 19 97 O2 Del Method O2 Flow Rate 05/09/23 07:06 05/09/23 05:00 05/09/23 05:00 05/09/23 04:30 05/09/23 04:00 05/09/23 04:00 05/09/23 03:38 05/09/23 03:30 05/09/23 03:00 05/09/23 03:00 05/09/23 02:30 05/09/23 02:00 05/09/23 02:00 05/09/23 01:45 Nasal Cannula 2 05/09/23 01:36 05/09/23 01:00 05/09/23 01:00 05/09/23 00:30 05/09/23 00:00 05/09/23 00:00 05/08/23 23:57 Room Air 05/08/23 23:30 05/08/23 23:30 05/08/23 23:20 05/08/23 23:20 05/08/23 23:10 05/08/23 23:10 05/08/23 23:09 05/08/23 23:00 05/08/23 23:00 05/08/23 22:50 05/08/23 22:50 05/08/23 22:40 05/08/23 22:40 05/08/23 22:30 05/08/23 22:30 05/08/23 22:20 05/08/23 22:20 05/08/23 22:10 05/08/23 22:10 05/08/23 22:09 05/08/23 22:00 05/08/23 22:00 05/08/23 21:50 05/08/23 21:50 05/08/23 21:40 05/08/23 21:40 05/08/23 21:39 05/08/23 21:30 05/08/23 21:30 05/08/23 21:24 05/08/23 21:24 05/08/23 21:24 05/08/23 21:15 05/08/23 21:15 05/08/23 21:09 05/08/23 21:09 05/08/23 21:07 05/08/23 21:00 05/08/23 21:00 05/08/23 20:30 05/08/23 20:00 05/08/23 20:00 05/08/23 19:30 Resident Activity Tracking Resident Involvement: Resident Care Provided Care Provided: Adult Hospital Medicine
[2023-05-09 07:20] LABS: RBC Morphology Unremarkable
[2023-05-09 07:24] LABS: BUN Creatinine Ratio 9.2 (10-20); Calcium 7.8 mg/dl (8.6-10.3); Creatinine Clr Calc Pharmacy 40.2 ml/min; Est GFR (African American) 54.2 ml/min; Est GFR (Non-African American) 46.7 ml/min
[2023-05-09] MEDS: VENLAFAXINE HCL XR 150 MG CAPXR PO SCH (08:55)
[2023-05-09] MEDS ORDERED: LANTUS PER UNIT CHARGE SQ SCH (09:00)
[2023-05-09] MEDS: INSULIN ASPART PER UNIT CHARGE SC SCH ×2 (09:30→12:19)
[2023-05-09] MEDS: PANTOprazole 40 MG in SYRINGE 0 ML IV SCH (10:59)
[2023-05-09] MEDS: CIPROFLOXACIN / D5W 400 MG/200 ML BAG IV SCH (11:03)
[2023-05-09 12:00] LABS: C Reactive Protein 0.52 mg/dl (0-0.5)
--- NOTE | 2023-05-09 12:52 | Discharge Summary ---
Date of Service May 09, 2023 Admission HPI Per Admitting Provider Noy is a 67yo female with PMH of T2DM, HTN, HLD, hypothyroidism, depression, asthma, liver cirrhosis, aortic valve replacement, s/p CABG x 3, GERD, splenomegaly, CHF, and portal hypertension. She presented for bright red blood in rectum during bowel movement the morning of 05/08. She notes that she woke up at 0530 and had a bowel movement with bright red blood and clots. She is not currently experiencing abdominal pain, or pain anywhere. She has never had an experience quite like this. She has a brother who has had a history of diverticulitis. Patient notes that she does have hemorrhoids. She did not take her morning medications today, including her Lantus 22u. Patient notes she went to her PCPs office last week for blood in her urine and a UTI; she was prescribed Bactrim 800-160 mg BID x 7 days, which she has been taking outpatient since 05/03. She notes that she has recently been trying to change her diet to cut down on her sugar. Recent [facility] hospital admission from 04/23 - 05/01 for pyelonephritis. She denies smoking, tobacco use, alcohol use, and recreational drug use. Vital stable at time of admission. ED Course: NSS 1000 mL IV Ciprofloxacin 400 mg IV Flagyl 500 mg IV ROS: Patient endorses dizziness (ongoing), dry cough, nausea (which has been ongoing in the mornings), and blood in urine (resolved with bactrim use). Patient denies fever, chills, sweats, headache, chest pain, pleuritic CP, SOB, hemoptysis, abdominal pain, vomiting, diarrhea, back pain, burning with urination, dysuria, or numbness/tingling/pain in the legs. Admission Exam Per Admitting Provider General: no acute distress; pleasant affect; non-toxic appearing; well- nourished; cooperative HEENT: normocephalic, atraumatic; PERRLA; moist mucus membrane; vision and hearing grossly intact Neck: supple; negative for JVD; no lymphadenopathy; trachea midline Skin: warm, dry without signs of tenting; no cyanosis; no rashes, bruising, l esions, or erythema noted CV: chest wall NTP; RRR; S1/S2 normal; 2/6 systolic ejection murmur noted at second ICS MCL; pulses intact and symmetric at radial, DP, and PT Lungs: no acute respiratory distress; symmetrical chest wall expansion; clear breath sounds across all lung raya w/o adventitious sounds; no wheezing ABD: Soft, NTP; LUQ NTP; BS present; no rebound/guarding; mild ascites; negative CVA tenderness; no rashes or bruising noted on the back or abdomen MSK: no tics or fasciculations; no edema noted in the LEs b/l, nonerythematous Neuro: A&Ox3; normal mood and affect; fluent speech; no focal deficits; sensation grossly intact in the LEs B/L Principal Diagnosis Rectal bleeding Discharge Exam Please see Dr. Rivers's attestation Discharge Data Allergies Allergy/AdvReac Type Severity Reaction Status Date / Time Penicillins Allergy Intermediate CAN'T Verified 04/23/23 18:18 REMEMBER Tetanus Vaccines and Toxoid Allergy Mild ARM Verified 12/12/22 12:22 SWELLING-HOT TO TOUCH Consultations 05/08/23 10:56 ED Decision to Admit Stat Ordered Studies 05/08/23 08:26 CT abd pelvis IV con only Stat Hospital Course (1) Diverticulitis: (2) Pyelonephritis: (3) Hyperglycemia due to type 2 diabetes mellitus: (4) S/P CABG x 3: (5) GERD without esophagitis: (6) Hypertension: Plan 67yo female with PMH of T2DM, HTN, HLD, hypothyroidism, depression, asthma, liver cirrhosis, aortic valve replacement, s/p CABG x 3, GERD, splenomegaly, CHF, and portal hypertension here due to diverticulitis Hematochezia Bright red bleeding in rectum during bowel movement the morning of 05/08 Abdomen/pelvic CT revealed mild acute diverticulitis involving the mid descending colon. No perforation or abscess No leukocytosis; afebrile Hgb 9.7 on admission -> 7.1, stable at 8 at time of discharge Given pt's lack of pain and benign abdominal exam, did not feel diagnosis of diverticulitis was accurate -Ciprofloxacin IV, Flagyl IV initiated on admission, discontinued on 05/09 Supportive care done in hospital- fluid repletion, pt tolerating clear diet as of 05/09 AM Recommend repeat colonoscopy as outpatient given 10+ years since last study Pyelonephritis: Recent [facility] admission from 04/23 - 05/01 - treated with Bactrim Abdomen CT: Resolving pyelonephritis No current active UTI suspected, discontinued abx as above Renal insufficiency Cr: on admission 1.22 Improving with fluid repletion Encourage continued oral hydration after discharge Type 2 diabetes mellitus: Poorly controlled diabetes with last A1C 13.3% BSG stable and acceptable during hospitalization with basal + SSI insulin Groundless nodule right middle lobe: CT findings noted Recommended 3-[address] chest and follow up as outpatient Hypertension: BP stable during hospitalization Lisinopril held for renal insufficiency Restart lisinopril on discharge S/P CABG x 3: Aspirin held while inpatient Resumed aspirin on discharge due to resolution of rectal bleeding, pt advised to discontinue aspirin if bleeding recurs CHF (congestive heart failure): Chronic; stable Last echo on 12/01/2021 revealed LVEF at 65-70% Euvolemic during hospitalization GERD without esophagitis: Continued pantoprazole Depression: Continued venlafaxine Hypothyroidism (acquired): Continued levothyroxine Liver cirrhosis: Chronic; noted No ascites noted during hospitalization Total Time Total Time Spent Total Time Spent (In Minutes): <30 Discharge Plan Discharge Items Patient Disposition: Home - Self-Care Reason For Visit: ACUTE DIVERTICULITIS, BRB IN RECTUM Discharge Diagnosis: Lower GI bleed Activity: Per Instructions section Non-emergency contact: Primary Care Provider Call non-emergency contact if: you have any medication questions, your symptoms worsen and you have a fever Follow-up/Referrals: Cirilo Page CRNP [Primary Care Provider] - 05/15/23 10:20 am (Appointment will be with Glenda Salgado) Diet: Carb Consistent or DM2 Addtl Attending Provider Instructions: After being admitted after rectal bleeding and findings on image of diverticulitis (inflammation on your GI) .Because you are tolerating food and bleeding stop we will sent you home. It's very important to follow up with Gastroenterology for a Colonoscopy within the next month We recommended as well follow up with your PCP within a week and repeat your CBC to monitor your hemoglobin If dizzy, lightheaded, new SOB called 911 or go to the emergency room Medications: Your medication list has been reviewed and reconciled upon discharge to ensure accuracy and continuity of care. An updated list of all your medications is included with your hospital discharge paperwork. Please review this list closely, and make note of any changes. You can continue taking your daily aspirin but please stop if the bleeding happens again. Discuss with your PCP about resuming aspirin. You will also need Take your medications as instructed; do not skip a dose of your medicines. Make sure all of your doctors know every medicine you are taking (including scjl-zyu-gabvxgl medicines, vitamins, and supplements). Call your primary care provider before taking any new medicines (including agcy-uzk-mnfvazi medicines, vitamins, and supplements), because some of these may interact with your current medications, or may make your symptoms worse. Tell your primary care provider if you cannot afford your medications. CONTACT YOUR PRIMARY CARE PROVIDER if you experience any of the following: Difficulty following your treatment plan, or difficulty taking medications CALL 911 OR GO TO THE EMERGENCY DEPARTMENT if you experience any of the following: Sudden, severe abdominal pain or nausea/vomiting Severe chest pain, or chest pain that radiates (moves) to your jaw or arm Sudden, severe shortness of breath or difficulty breathing Thank you for allowing us to participate in your care. Pending Studies at Discharge: No Stand-Alone Forms: [facility] Medications and DC Order Prescriptions: Continued (DME) pen needle, diabetic [BD Ultra-Fine Ruth Pen Needle] 32 gauge x 5/32" needle See Rx Instructions .ROUTE .MEDSUPPLY Qty: 100 3RF Rx Instructions: Inject once daily Dx: E11.9 atorvastatin 20 mg tablet 20 mg PO QPM Qty: 90 2RF aspirin 81 mg tablet,delayed release (DR/EC) 81 mg PO DAILY Qty: 90 1RF lisinopril 5 mg tablet 5 mg PO DAILY Qty: 90 2RF empagliflozin 25 mg tablet 25 mg PO DAILY Qty: 90 2RF levothyroxine 88 mcg tablet 88 mcg PO DAILY Qty: 30 2RF metformin 1,000 mg tablet 1,000 mg PO BID Qty: 180 1RF venlafaxine 150 mg capsule,extended release 24hr 150 mg PO DAILY Qty: 90 1RF baclofen 5 mg tablet 5 mg PO BID Qty: 20 0RF furosemide 20 mg tablet 20 mg PO DAILY PRN (Reason: weight gain) Qty: 30 2RF pantoprazole [Protonix] 40 mg tablet,delayed release (DR/EC) 40 mg PO DAILY Qty: 90 2RF insulin glargine [Lantus Solostar U-100 Insulin] 100 unit/mL (3 mL) insulin pen 22 unit subcut QAM Discharge Orders: Discharge Order (Routine); Ordered 05/09/23 Ordered By: Ned Young/Other Patient Handouts: Diverticulosis and Diverticulitis Admission Data Admit Date/Time: 05/08/23 11:15 Attending Provider: Zackary Rivers Admit Provider: Antonio Doherty Primary Care Provider: Cirilo Page Other Providers: Antonio Doherty Other Interventions: Discharge Summary Assessment (RN) Last Done: 05/09/23 13:00 Supervising Physician Co-Signing Physician Notes I personally examined the patient and verified all butler points of history and exam, discussed case, and agree with decision making with Dr Mya ramos fine. never had abdominal pain. had one episode of BRBPR and none since (this was yesterday morning). eating and drinking fine. feels fine. wants to go home. separately - she notes that everything is running together and she can't remember if she saw [facility] urgent care in the week between admissions here for hematuria or if it was prior to previous admit - but either way notes zero urinary symptoms - no dysuria/urgency/hematuria etc. vitals noted nad heent nc at mmm abd soft nd nt no guarding no rebound no rigidity. skin without rashes/pallor/icterus. looks much brighter than when i saw her nearing the end of prior admission BRBPR - diverticular bleed vs hemorrhoidal. bleeding has stopped. clinically stable. would like to go home - reasonable to let her go - discussed "red flags" (most notably symptoms such as lightheaded/weak, but also if recurrent bleeding) - discussed colo (especially since it's been >10yrs) as outpt in near future CT appearance of diverticulitis - with no pain, no tenderness on exam - really doubt this was a true clinical diagnosis. no need for further abx (mostly out of suspicion that she never had diverticulitis at all, but at the same time if she did and it was this mild - can often resolve without treatment, and given the abx she has been on recently would like to hold abx to avoid potential ADRs/Cdiff unless clearly necessary) ?hematuria - she has been through a lot and not surprising that she would have a hard time recalling when she was at [facility] urgent care, we have no records but also she has no urinary symptoms at this time. outpt f/u. if hematuria present/persists/recurs then would have cystoscopy safe/stable for home otherwise as above Resident Activity Tracking Resident Involvement: Resident Care Provided Care Provided: Adult [facility]
--- NOTE | 2023-05-09 16:43 | Billing Data ---
Date of Service May 09, 2023 Coding Level of Care Code 73108 IN/OBS DISCH 30 MIN/LESS
--- NOTE | 2023-05-11 06:46 | Electrocardiogram Report ---
Test Reason : Blood Pressure : / mmHG Vent. Rate : 086 BPM Atrial Rate : 086 BPM P-R Int : 114 ms QRS Dur : 090 ms QT Int : 390 ms P-R-T Axes : 007 011 023 degrees QTc Int : 466 ms Normal sinus rhythm Minimal voltage criteria for LVH, may be normal variant ( Masood product ) Cannot rule out Inferior infarct (cited on or before 20-DEC-2020) Nonspecific ST abnormality Abnormal ECG When compared with ECG of 21-DEC-2020 05:36, T wave inversion no longer evident in Inferior leads T wave inversion no longer evident in Lateral leads Confirmed by Felipe Sylvester ([id number]) on 05/11/2023 6:46:05 AM Referred By: REFERRED SELF Confirmed By:Felipe Sylvester
== END 2023-05-09 14:15 | disposition home or self-care (01) | DRG 393 ==
LOC: ED 07:11 → SUATTDRO 11:15 → EDINP 11:15 → 3E 15:39

== ENCOUNTER 2024-09-06 17:11 | Inpatient (IN) ==
[2024-09-06 18:20] LABS: Alanine Aminotransferase 20 U/L (7-52); Albumin Globulin Ratio 0.8 (0.9-2); Alkaline Phosphatase 136 U/L (34-104); Anion Gap 12 (3-11); Aspartate Aminotransferase 24 U/L (13-39); BUN Creatinine Ratio 15.1 (10-20); Bilirubin,Total 1.6 mg/dl (0.2-1.0); Blood Urea Nitrogen 53 mg/dl (6-23); Calcium 8.8 mg/dl (8.6-10.3); Carbon Dioxide 24 mmol/L (21-32); Chloride 96 mmol/L (98-107); Globulin 3.8 gm/dl (2.5-4.0); Glucose 188 mg/dl (70-99(Fasting)); Lipase 37 U/L (11-82); Potassium 3.7 mmol/L (3.5-5.1); Sodium 132 mmol/L (136-145); Total Protein 6.8 gm/dl (6.0-8.3)
[2024-09-06 18:28] LABS: Appearance Urine Turbid (Clear); Bacteria Urine Automated 2+ (None Seen); Bilirubin Urine 2+ (Negative); Blood Urine 3+ (Negative); Cast Urine Automated >20 /lpf (0-2); Color Urine Orange; Glucose Urine UA Negative (Negative); Ketones Urine Trace (Negative); Leukocyte Esterase Urine 3+ (Negative); Nitrite Urine Positive (Negative); Protein Urine 1+ (Negative); RBC Urine Automated >20 /hpf (0-2); Specific Gravity Urine 1.033 (1.000-1.030); Urobilinogen Urine Negative (Negative); WBC Urine Automated >50 /hpf (0-5)
[2024-09-06 18:37] LABS: Troponin I High Sensitivity 36.3 pg/ml (0-14)
[2024-09-06] MEDS: cefTRIAXone SODIUM 2,000 MG/50 ML BAG IV STA (18:48)
[2024-09-06] MEDS: SODIUM CHLORIDE 0.9% 1,000 ML IV ONE (18:48)
[2024-09-06 18:53] LABS: Basophils # (auto) 0.06 K/uL (0.00-0.20); Basophils % (auto) 0.5 %; Eosinophils # (auto) 0.33 K/uL (0.00-0.50); Eosinophils % (auto) 2.6 %; Hematocrit (blood only) 35.4 % (37.0-47.0); Hemoglobin 11.7 g/dl (12.0-16.0); Immature Granulocytes # (auto) 0.11 K/uL (0.01-0.20); Immature Granulocytes % (auto) 0.9 %; Lymphocytes # (auto) 0.64 K/uL (1.20-3.40); Lymphocytes % (auto) 5.1 %; Mean Corpuscular Hemoglobin 29.1 pg (25.0-34.0); Mean Corpuscular Hgb Conc 33.1 g/dL (32.0-36.0); Mean Corpuscular Volume 88.1 fL (80.0-100.0); Monocytes # (auto) 0.68 K/uL (0.11-0.59); Monocytes % (auto) 5.4 %; Neutrophils # (auto) 10.82 K/uL (1.40-6.50); Neutrophils % (auto) 85.5 %; Platelet Count 49 K/uL (130-400); Platelet Estimate Decreased (Normal); RDW Coefficient of Variation 14.3 % (11.5-14.5); RDW Standard Deviation 46.4 fL (36.4-46.3); Red Blood Count 4.02 M/uL (4.20-5.40); White Blood Count 12.64 K/ul (4.8-10.8)
--- NOTE | 2024-09-06 19:48 | History & Physical Report ---
Date of Service September 06, 2024 Assessment & Plan (1) Acute pyelonephritis: (2) GERARDO (acute kidney injury): (3) Abnormal LFTs: (4) Liver cirrhosis: (5) CAD (coronary artery disease): (6) Hypertension: (7) Hyperlipemia: (8) Type 2 diabetes mellitus: (9) GERD without esophagitis: Plan 69-year-old female with multiple medical comorbidities as above recently diagnosed with acute pyelonephritis started on Bactrim therapy returns to the ER with worsening nausea, weakness, fatigue and p.o. intolerance. Patient with worsening leukocytosis WBC now = 12.64 which is increased from 7.8. Worsening thrombocytopenia. Platelets = 49, decreased from 143. GERARDO with BUN = 53, increased from 15 and creatinine = 3.51, increased from 0.93. Patient is afebrile and hemodynamically stable. Nontoxic in appearance. #Acute pyelonephritispatient initially presented to the ER on 09/04 with sym ptoms of suprapubic pain and left flank pain. She was diagnosed with acute pyelonephritis and started on Bactrim. Urine culture positive for Enterobacter cloacae. Patient afebrile, hemodynamically stable, nontoxic in appearance, no sepsis at this time. Still with left flank pain. Admit to medical telemetry Follow urine culture sent from the ER Continue ceftriaxone 2 g IV daily Tylenol as needed for pain or fever #AKIBUN = 53, increased from 15 and creatinine = 3.51, increase from 0.93. Most likely multifactorial. Suspect Bactrim is largely to blame in addition to patient's use of ibuprofen, lisinopril, decreased oral intake. -Telemetry Monitoring Place Cadena to monitor close I's and O's Check renal ultrasound to rule out urinary obstruction Check urine sodium and urine creatinine for Mandie calculation Check random creatinine kinase Gentle IV fluids with LR at 100 mL/h x 2 L ordered Repeat chemistry in the morning Avoid nephrotoxic agents Renal dosing related Treatment of UTI/pyelonephritis as above #abnormal LFTspatient with history of Salazar cirrhosis, esophageal varices. She is complaining of some mild right upper quadrant pain. Her T. bili has increased from 1-1.6 and her alkaline phosphatase is increased from 120-136. Additionally, her platelets are now 49 and albumin is 3. Possibly secondary to Bactrim use? Check liver ultrasound Check INR Repeat LFTs in the morning #Liver cirrhosisconcern for possible decompensation given elevation of bili, low platelets, albumin and sodium Check INR Repeat LFTs Check right upper quadrant ultrasound #Coronary artery diseasepatient denies chest pain. She has mild elevation of troponin = 36.3 with repeat pending. Suspect this is secondary to poor clearance from GERARDO Continue aspirin 81 mg p.o. daily Holding atorvastatin in setting of liver dysfunction Hold lisinopril in setting of GERARDO #Hypertensionblood pressure at goal Continue to monitor Hold lisinopril in setting of GERARDO #Hyperlipidemia Hold atorvastatin #Diabeteslast hemoglobin A1c = 8.8 on 09/27/2023 patient is on Lantus 20 units daily Will decrease Lantus in setting of GERARDO Lantus 5 units twice daily Insulin sliding scale #GERD Continue Protonix 40 mg p.o. twice daily History of Present Illness Chief Complaint: Nausea, abdominal pain Primary Care Provider: PRABHA Ramirez Noy Garcia is a 69-year-old female with history of coronary artery disease status post CABG, status post aortic valve replacement, asthma, SALAZAR Cirrhosis with esophageal varices, diabetes, hyperlipidemia presenting with ongoing nausea. Patient initially presented to [facility] emergency room on 09/04/2024 with left flank pain and lower abdominal pain that started on the day of presentation. Patient with UA suggestive of infection. CT of the abdomen pelvis revealed left pyelonephritis and ureteritis (read as interval progression when compared to CT from 05/08/2023). patient prescribed Bactrim DS twice daily x 10 days and was discharged home. She reports she has been taking this medication but since returning home has been experiencing progressive nausea with one episode of nonbloody/nonbilious emesis on 09/04 evening. Also with weakness and fatigue as well as subjective fevers and clamminess. Patient has not been able to eat much more than a few bites of food over the last 2 days. She also has new mid abdominal pain. She denies chest pain, cough, shortness of breath, diarrhea. She has been taking ibuprofen intermittently for discomfort. No additional complaints at this time In the emergency room, patient is afebrile and hemodynamically stable. Multiple laboratory abnormalities discussed below ER course: Ceftriaxone 2 g IV Normal saline 1 L IV Allergies Allergy/AdvReac Type Severity Reaction Status Date / Time Penicillins Allergy Intermediate CAN'T Verified 09/04/24 17:19 REMEMBER Tetanus Vaccines and Toxoid Allergy Mild ARM Verified 09/04/24 17:19 SWELLING-HOT TO TOUCH Home Medications Medication Instructions Recorded Confirmed Type furosemide 20 mg tablet 20 mg PO DAILY PRN weight gain #30 04/11/22 09/06/24 Rx tabs aspirin 81 mg tablet,delayed 81 mg PO QAM 05/18/23 09/06/24 History release (Adult Low Dose Aspirin) ferrous sulfate 325 mg (65 mg 325 mg PO QPM 07/03/23 09/06/24 History iron) tablet venlafaxine 150 mg 150 mg PO QPM #90 caps 09/18/23 09/06/24 Rx capsule,extended release 24 hr diclofenac sodium 1 % topical gel 2 g topical QID PRN pain (scale 09/24/23 09/06/24 Rx (Arthritis Pain (diclofenac)) score 4-6) #100 grams pantoprazole 40 mg tablet,delayed 40 mg PO BID #60 tabs 12/25/23 09/06/24 Rx release atorvastatin 20 mg tablet 20 mg PO QPM #90 tabs 04/07/24 09/06/24 Rx lisinopril 5 mg tablet 5 mg PO QPM #90 tabs 04/07/24 09/06/24 Rx insulin glargine 100 unit/mL (3 20 unit (0.2 mL) subcut QPM #3 mL 06/02/24 09/06/24 Rx mL) subcutaneous pen (Lantus Solostar U-100 Insulin) levothyroxine 100 mcg tablet 100 mcg PO QAM #30 tabs 08/06/24 09/06/24 Rx semaglutide 0.25 mg or 0.5 mg (2 0.25 mg subcut WK 09/04/24 09/06/24 History mg/3 mL) subcutaneous pen injector (Ozempic) sulfamethoxazole 800 1 tab PO Q12H #20 tabs 09/04/24 09/06/24 Rx mg-trimethoprim 160 mg tablet (Bactrim DS) Past Med/Surg History Problem List (Updated 09/06/24 @ 20:06 by Melissa Barrera DO) Abnormal LFTs GERARDO (acute kidney injury) Acute pyelonephritis (Acute) Acute UTI (urinary tract infection) (Acute) Esophageal dysphagia Right knee DJD Right knee pain Pulmonary nodule Esophageal varices Melena ELIZABETH (iron deficiency anemia) B12 deficiency Hypocalcemia Rectal bleeding ABLA (acute blood loss anemia) (Acute) Diverticulitis (Acute) Acute lower gastrointestinal bleeding (Acute) Nocturnal hypoxia Hyperglycemia due to type 2 diabetes mellitus Portal hypertension Splenomegaly Liver cirrhosis (Chronic) Pleural effusion (Acute) Aortic valve replaced (11/29/20) with annular enlargement, 21 mm Inspiris Bioprosthetic valve S/P CABG x 23 Nov 2020 > [place] GERD without esophagitis CAD (coronary artery disease) (11/29/20) MOREL-LAD, Ao-PDA, Ao-OM with reversed saphenous vein LVH (left ventricular hypertrophy) Moderate mitral regurgitation Mitral valve annular calcification Severe calcific aortic valve stenosis Vitamin deficiency Abdominal aortic aneurysm pt unaware of this Heart murmur Vision problem Hyperlipemia Asthma Depression Hypertension Hypothyroidism (acquired) Hypercholesterolemia Type 2 diabetes mellitus Medical History CAD (coronary artery disease) MOREL-LAD, Ao-PDA, Ao-OM with reversed saphenous vein Cardiac murmur Asthma stable and controlled at this time. SALAZAR (nonalcoholic steatohepatitis) Hypothyroidism History of diverticulosis Esophageal varices Cirrhosis History of Lyme disease 04/27/23. no current issues Diabetes mellitus, type 2 IDDM Depression Hypertension Hyperlipidemia Pulmonary nodules no pulmonary f/u Moderate mitral regurgitation Sleep apnea cpap "sometimes" Portal hypertension 04/2023 Abdominal aortic aneurysm pt unaware History of COVID-19 Apr 27, 2023 during hospital admission [facility] - resolved SIRS (systemic inflammatory response syndrome) resolved per pt Pyelonephritis of left kidney resolved per pt > was hospitalized at [facility] for this in Apr 2023 CHF (congestive heart failure) follows with Dr Timmy Sosa Acid reflux Fatty liver Anemia chronic Surgical History H/O aortic valve replacement with annular enlargement, 21 mm Inspiris Bioprosthetic valve History of bilateral tubal ligation H/O umbilical hernia repair x3 S/P CABG x 23 November 2020 in [facility] History of esophagogastroduodenoscopy (EGD) 07/12/23 w/banding of varices; 07/30/23 egd History of cardiac cath 2020 @ [facility], no stents History of colonoscopy most recent 07/12/23 Status post device closure of ASD (11/29/20) Nov 2020 at [place] H/O tubal ligation Status post hernia repair x3 Family History Father Stomach cancer Daughter Diabetes Heart disease Hypertension Mother Diabetes Sister No problems noted. Son Heart disease Hypertension Grandfather Myocardial infarction Denies family history of Ovarian cancer Prostate cancer Breast cancer Colorectal cancer Social History Smoking Status: Never smoker Second Hand Exposure: No; Do You Dip or Chew Tobacco: No; Hx Alcohol Use: No Hx Substance Use: No Preferred Language: Swedish Communication Ability: Effective Visual Impairment: No Limitations Hearing Ability: Normal Journalist Required: No Beliefs That Will Affect Care: None marital status: Current Living Situation: Family Current Living Situation Comment: and teenage son current occupational status: unemployed current occupation: homemaker How many Children do You have: 5 Feels Safe at Home: Yes Childhood Exposure to Second-Hand Smoke: Yes Diet: regular Diet Comment: regular caffeine: No during the past year weight has: remained stable Dental Care, Regularly: No Physical Activity Frequency: Daily Physical Activity Frequency Comment: housework, walking Seatbelt Use: always Sunscreen Use: Yes (sometimes) Assistive Devices: CPAP and Glasses Review of Systems Review of Systems: All systems reviewed & are unremarkable except as noted in HPI & below Physical Exam Physical Exam: General: patient resting comfortably, NAD, non-toxic in appearance, AA&O x 4 Skin: warm, dry, intact, no rashes or lesions HEENT: NC/AT, PERRL, EOMI, anicteric sclera, conjunctiva without injection, external ear normal to inspection and nontender, nares patent, moist mucus membranes, dentition intact, no oropharyngeal lesions, neck supple, trachea midline, no LAD, no thyromegaly, no JVD Heart: +S1/S2, regular, 3/6 systolic ejection murmur at right second intercostal space with radiation across the precordium, no rubs or gallops Lungs: equal air entry bilaterally, no rales/rhonchi/wheezes Abd: +BS, soft, ND, mild right upper quadrant pain with no rebound or guarding, mild left flank pain with palpation, no masses/organomegaly/ascites Ext: warm, 2+ pulses in UE/LE bilaterally, no clubbing/cyanosis or edema Neuro: nonfocal, patient AA&O x 4, speech intact, no facial droop, moving all extremities on command with equal strength 5/5 Results & Data Results & Data Vital Signs (Past 12 Hours) Vital Signs Temp Pulse Pulse Resp BP BP Pulse Ox 09/06/24 19:12 92 H 20 123/85 97 09/06/24 17:46 79 09/06/24 17:38 79 16 96 09/06/24 17:14 36.4 C L 82 16 130/58 L O2 Del Method 09/06/24 19:12 Room Air 09/06/24 17:46 09/06/24 17:38 Room Air 09/06/24 17:14 Room Air Laboratory Results Laboratory Results WBC 12.64 K/ul (4.8-10.8) H 09/06/24 17:36 RBC 4.02 M/uL (4.20-5.40) L 09/06/24 17:36 Hgb 11.7 g/dl (12.0-16.0) L 09/06/24 17:36 Hct 35.4 % (37.0-47.0) L 09/06/24 17:36 MCV 88.1 fL (80.0-100.0) 09/06/24 17:36 MCH 29.1 pg (25.0-34.0) 09/06/24 17:36 MCHC 33.1 g/dL (32.0-36.0) 09/06/24 17:36 RDW Std Deviation 46.4 fL (36.4-46.3) H 09/06/24 17:36 RDW Coeff of [place] 14.3 % (11.5-14.5) 09/06/24 17:36 Plt Count 49 K/uL (130-400) L 09/06/24 17:36 MPV 12.0 fL (9.4-12.4) 09/06/24 17:36 Immature Gran % (Auto) 0.9 % 09/06/24 17:36 Neut % (Auto) 85.5 % 09/06/24 17:36 Lymph % (Auto) 5.1 % 09/06/24 17:36 [place] % (Auto) 5.4 % 09/06/24 17:36 Eos % (Auto) 2.6 % 09/06/24 17:36 Baso % (Auto) 0.5 % 09/06/24 17:36 Neut # (Auto) 10.82 K/uL (1.40-6.50) H 09/06/24 17:36 Lymph # (Auto) 0.64 K/uL (1.20-3.40) L 09/06/24 17:36 [place] # (Auto) 0.68 K/uL (0.11-0.59) H 09/06/24 17:36 Eos # (Auto) 0.33 K/uL (0.00-0.50) 09/06/24 17:36 Baso # (Auto) 0.06 K/uL (0.00-0.20) 09/06/24 17:36 Immature Gran # (Auto) 0.11 K/uL (0.01-0.20) 09/06/24 17:36 Platelet Estimate Decreased (Normal) L 09/06/24 17:36 Sodium 132 mmol/L (136-145) L 09/06/24 17:36 Potassium 3.7 mmol/L (3.5-5.1) 09/06/24 17:36 Chloride 96 mmol/L (98-107) L 09/06/24 17:36 Carbon Dioxide 24 mmol/L (21-32) 09/06/24 17:36 Anion Gap 12 (3-11) H 09/06/24 17:36 BUN 53 mg/dl (6-23) H 09/06/24 17:36 Creatinine 3.51 mg/dl (0.6-1.2) H 09/06/24 17:36 Est Cr Clr Drug Dosing Not Reportable 09/06/24 17:36 eGFR 13.52 09/06/24 17:36 BUN/Creatinine Ratio 15.1 (10-20) 09/06/24 17:36 Glucose 188 mg/dl (70-99(Fasting)) H 09/06/24 17:36 Calcium 8.8 mg/dl (8.6-10.3) 09/06/24 17:36 Total Bilirubin 1.6 mg/dl (0.2-1.0) H 09/06/24 17:36 AST 24 U/L (13-39) 09/06/24 17:36 ALT 20 U/L (7-52) 09/06/24 17:36 Alkaline Phosphatase 136 U/L (34-104) H 09/06/24 17:36 Troponin I High Sens 36.3 pg/ml (0-14) H 09/06/24 17:36 Total Protein 6.8 gm/dl (6.0-8.3) 09/06/24 17:36 Albumin 3.0 gm/dl (3.4-5.0) L 09/06/24 17:36 Globulin 3.8 gm/dl (2.5-4.0) 09/06/24 17: Albumin/Globulin Ratio 0.8 (0.9-2) L 09/06/24 17:36 Lipase 37 U/L (11-82) 09/06/24 17: Urine Color Seth 09/06/24 17:30 Urine Appearance Turbid (Clear) A 09/06/24 17: Urine pH 5.0 (4.5-7.5) 09/06/24 17:30 Ur Specific [place] 1.033 (1.000-1.030) H 09/06/24 17:30 Urine Protein 1+ (Negative) H 09/06/24 17:30 Urine Glucose (UA) Negative (Negative) 09/06/24: Urine Ketones Trace (Negative) H 09/06/24 17:30 Urine Blood 3+ (Negative) H 09/06/24 17:30 Urine Nitrite Positive (Negative) A 09/06/24: Urine Bilirubin 2+ (Negative) H 09/06/24 17:30 Urine Urobilinogen Negative (Negative) 09/06/24 17:30 Ur Leukocyte Esterase 3+ (Negative) H 09/06/24 17:30 Urine WBC (Auto) >50 /hpf (0-5) H 09/06/24 17:30 Urine RBC (Auto) >20 /hpf (0-2) H 09/06/24 17:30 U Hyaline Cast (Auto) >20 /lpf (0-2) H 09/06/24 17:30 U Epithel Cells (Auto) 11-20 /hpf (0-2) H 09/06/24 17:30 Urine Bacteria (Auto) 2+ (None Seen) H 09/06/24 17:30 Urine Comment 09/06/24 17:30 Impressions Chest X-Ray 09/06/24 18:09 EXAM: XR chest 1V portable CLINICAL HISTORY: Shortness of breath, upper abd pain TECHNIQUE: An X-ray image of the chest is obtained in AP projection. COMPARISON: 04/07/2024 . FINDINGS: Pulmonary Parenchyma: Prominent bilateral bronchovascular markings at both hilar regions and lower lung zones. No evidence of pleural effusion or pleural thickening. Heart and Mediastinum: Increased cardiothoracic ratio. Bony Thorax: Bony thorax appears intact without fractures or deformities. Sternotomy metallic sutures. Soft Tissues: Soft tissues overlying the chest wall are unremarkable. IMPRESSION: 1. Prominent bilateral bronchovascular markings at both hilar regions and lower lung zones. likely congestion. Interval new finding 2. Cardiomegaly. Electronically signed by Jb Bauer 09-06-2024 7:53 PM Code Status & VTE Plan VTE Prophylaxis Plan VTE Prophylaxis will be ordered: Yes PG Care Time/CCT Total # of Minutes Spent Total Time Spent with Patient: Total time spent is greater than 50% in coordination of care (as documented) at patient's floor/unit and/or counseling patient: Coding Level of Care Code 79040 INT INP/OBS CARE 3/75MIN Diagnoses Acute pyelonephritis N10 GERARDO (acute kidney injury) N17.9 Abnormal LFTs R79.89 Liver cirrhosis K74.69 Hepatic cirrhosis type: other cirrhosis CAD (coronary artery disease) I25.10 Hypertension I10 Hyperlipemia E78.5 Type 2 diabetes mellitus E11.9 GERD without esophagitis K21.9 (4) Liver cirrhosis Hepatic cirrhosis type: other cirrhosis Qualified Code(s): K74.69 - Other cirrhosis of liver
--- NOTE | 2024-09-06 19:53 | XRay Report ---
EXAM: XR chest 1V portable CLINICAL HISTORY: Shortness of breath, upper abd pain TECHNIQUE: An X-ray image of the chest is obtained in AP projection. COMPARISON: 04/07/2024 . FINDINGS: Pulmonary Parenchyma: Prominent bilateral bronchovascular markings at both hilar regions and lower lung zones. No evidence of pleural effusion or pleural thickening. Heart and Mediastinum: Increased cardiothoracic ratio. Bony Thorax: Bony thorax appears intact without fractures or deformities. Sternotomy metallic sutures. Soft Tissues: Soft tissues overlying the chest wall are unremarkable. IMPRESSION: 1. Prominent bilateral bronchovascular markings at both hilar regions and lower lung zones. likely congestion. Interval new finding 2. Cardiomegaly. Electronically signed by Jb Bauer 09-06-2024 7:53 PM
--- NOTE | 2024-09-06 19:58 | Emergency Department Note ---
Impression & Plan GERARDO (acute kidney injury), Acute pyelonephritis, Elevated troponin, Abnormal blood electrolyte level ED Provider Note NAME: EDUAR BARNES AGE: 69 SEX: F : 1955 ARRIVES VIA: Walk-In INFORMANT: Patient, ED PROVIDER(S): Daniel Wolfe MD CHIEF COMPLAINT: Abdominal pain HPI: This is a 69-year-old female sent for abdominal pain. Patient was recently here diagnosed with acute UTI/pyelonephritis/urethritis 2 days ago. Was given Bactrim double strength. Patient notes resolution of urinary symptoms but new upper abdominal pain. She reports a week, off balance, fatigued and tired. She states she is trouble walking due to bilateral lower extremity weakness. She reports no persistent fevers. She is reports some slight nausea. She reports no chest pain, shortness of breath. No diarrhea with this. ROS: See above HPI for pertinent positives & negatives. A total of 10 systems reviewed and were otherwise negative. PAST MEDICAL HISTORY: See Below PAST SURGICAL HISTORY: See Below FAMILY HISTORY: See Below SOCIAL HISTORY: See Below HOME MEDICATIONS: See Below ALLERGIES: See Below VITALS: See Below PHYSICAL EXAMINATION: General: resting comfortably in no acute distress Head: Normocephalic and atraumatic Eyes: Normal inspection, extraocular muscles intact Ear, nose, throat: Normal external exam Neck: Normal range of motion Respiratory: lungs clear to auscultation bilaterally Cardiovascular: Regular rate/rhythm, no murmur GI: soft, nontender, no guarding or rebound Extremities: nontender, moves all extremities Neuro: The patient awake and alert, appropriately conversive, no focal deficits, symmetric faces Skin: Warm, dry, and intact MEDICAL DECISION MAKING: This is a 69-year-old female presenting for abdominal pain. Patient overall has stable vital signs, no signs of overt sepsis currently. Will do repeat blood work and urinalysis to assess for resolution of previous pyelonephritis/urethritis diagnosed on CAT scan. - Patient's blood work is significantly abnormal. New leukocytosis to 12.64, uptrending. Hemoglobin down by about 1 point, down to 11.7. Newly thrombocytopenic with platelet count of 49. - New slight hyponatremia, hypochloremia, anion gap. There is also a significant creatinine elevation from 0.93-3.51. - This may be related to patient's Bactrim versus worsening infection. - Will with the patient at this time for further workup I will switch her Bactrim to ceftriaxone at this time. - Urinalysis does continue to show UTI - Patient admitted to the hospitalist service, under Dr. Melissa Barrera Differential diagnosis: Pyelonephritis, sepsis, ACS, PE Independent History obtained from: Diagnostics interpreted by me: ECG: ECG independently interpreted by me with normal sinus rhythm, rate of 79, normal axis, normal NE, normal QRS, normal QTc, no ST segment elevations consistent with STEMI criteria Cardiac Monitoring: An order was placed for continuous cardiac monitoring. The monitor shows a rate of 82 with sinus rhythm. Past Med/Surg History Problem List (Updated 09/06/24 @ 23:24 by Daniel Wolfe MD) Abnormal blood electrolyte level (Acute) Elevated troponin (Acute) Acute pyelonephritis (Acute) GERARDO (acute kidney injury) (Acute) Abnormal LFTs GERARDO (acute kidney injury) Acute pyelonephritis (Acute) Acute UTI (urinary tract infection) (Acute) Esophageal dysphagia Right knee DJD Right knee pain Pulmonary nodule Esophageal varices Melena ELIZABETH (iron deficiency anemia) B12 deficiency Hypocalcemia Rectal bleeding ABLA (acute blood loss anemia) (Acute) Diverticulitis (Acute) Acute lower gastrointestinal bleeding (Acute) Nocturnal hypoxia Hyperglycemia due to type 2 diabetes mellitus Portal hypertension Splenomegaly Liver cirrhosis (Chronic) Pleural effusion (Acute) Aortic valve replaced (11/29/20) with annular enlargement, 21 mm Inspiris Bioprosthetic valve S/P CABG x 23 Nov 2020 > [facility] without esophagitis CAD (coronary artery disease) (11/29/20) MOREL-LAD, Ao-PDA, Ao-OM with reversed saphenous vein LVH (left ventricular hypertrophy) Moderate mitral regurgitation Mitral valve annular calcification Severe calcific aortic valve stenosis Vitamin deficiency Abdominal aortic aneurysm pt unaware of this Heart murmur Vision problem Hyperlipemia Asthma Depression Hypertension Hypothyroidism (acquired) Hypercholesterolemia Type 2 diabetes mellitus Medical History CAD (coronary artery disease) MOREL-LAD, Ao-PDA, Ao-OM with reversed saphenous vein Cardiac murmur Asthma stable and controlled at this time. MESA (nonalcoholic steatohepatitis) Hypothyroidism History of diverticulosis Esophageal varices Cirrhosis History of Lyme disease 04/27/23. no current issues Diabetes mellitus, type 2 IDDM Depression Hypertension Hyperlipidemia Pulmonary nodules no pulmonary f/u Moderate mitral regurgitation Sleep apnea cpap "sometimes" Portal hypertension 04/2023 Abdominal aortic aneurysm pt unaware History of COVID-19 Apr 27, 2023 during hospital admission [facility] - resolved SIRS (systemic inflammatory response syndrome) resolved per pt Pyelonephritis of left kidney resolved per pt > was hospitalized at [facility] for this in Apr 2023 CHF (congestive heart failure) follows with Dr Timmy Sosa Acid reflux Fatty liver Anemia chronic Surgical History H/O aortic valve replacement with annular enlargement, 21 mm Inspiris Bioprosthetic valve History of bilateral tubal ligation H/O umbilical hernia repair x3 S/P CABG x 23 November 2020 in [facility] History of esophagogastroduodenoscopy (EGD) 07/12/23 w/banding of varices; 07/30/23 egd History of cardiac cath 2020 @ [facility], no stents History of colonoscopy most recent 07/12/23 Status post device closure of ASD (11/29/20) Nov 2020 at [facility] H/O tubal ligation Status post hernia repair x3 Family History Father Stomach cancer Daughter Diabetes Heart disease Hypertension Mother Diabetes Sister No problems noted. Son Heart disease Hypertension Grandfather Myocardial infarction Denies family history of Ovarian cancer Prostate cancer Breast cancer Colorectal cancer Social History Smoking Status: Never smoker Second Hand Exposure: No; Do You Dip or Chew Tobacco: No; Tobacco Cessation Education Requested by Patient: No Hx Alcohol Use: No Hx Substance Use: No Preferred Language: Armenian Communication Ability: Effective Visual Impairment: No Limitations Hearing Ability: Normal Allergist/Immunologist Physician Required: No Beliefs That Will Affect Care: None marital status: Current Living Situation: Spouse Current Living Situation Comment: and teenage son current occupational status: unemployed current occupation: homemaker How many Children do You have: 5 Other Information That Helps Us Care for You: No Feels Safe at Home: Yes Safety Concerns: Feels Safe At This Time Childhood Exposure to Second-Hand Smoke: Yes Diet: regular Diet Comment: regular caffeine: No during the past year weight has: remained stable Dental Care, Regularly: No Physical Activity Frequency: Daily Physical Activity Frequency Comment: housework, walking Seatbelt Use: always Sunscreen Use: Yes (sometimes) Assistive Devices: Cane Allergies Allergies Allergy/AdvReac Type Severity Reaction Status Date / Time Penicillins Allergy Intermediate CAN'T Verified 09/04/24 17:19 REMEMBER Tetanus Vaccines and Toxoid Allergy Mild ARM Verified 09/04/24 17:19 SWELLING-HOT TO TOUCH Home Meds Home Medications Medication Instructions Recorded Confirmed aspirin 81 mg tablet,delayed 81 mg PO QAM 05/18/23 09/06/24 release (Adult Low Dose Aspirin) ferrous sulfate 325 mg (65 mg 325 mg PO QPM 07/03/23 09/06/24 iron) tablet semaglutide 0.25 mg or 0.5 mg (2 0.25 mg subcut WK 09/04/24 09/06/24 mg/3 mL) subcutaneous pen injector (Ozempic) Previous Rx's Medication Instructions Recorded furosemide 20 mg tablet 20 mg PO DAILY PRN weight gain #30 04/11/22 tabs venlafaxine 150 mg 150 mg PO QPM #90 caps 09/18/23 capsule,extended release 24 hr diclofenac sodium 1 % topical gel 2 g topical QID PRN pain (scale 09/24/23 (Arthritis Pain (diclofenac)) score 4-6) #100 grams pantoprazole 40 mg tablet,delayed 40 mg PO BID #60 tabs 12/25/23 release atorvastatin 20 mg tablet 20 mg PO QPM #90 tabs 04/07/24 lisinopril 5 mg tablet 5 mg PO QPM #90 tabs 04/07/24 insulin glargine 100 unit/mL (3 20 unit (0.2 mL) subcut QPM #3 mL 06/02/24 mL) subcutaneous pen (Lantus Solostar U-100 Insulin) levothyroxine 100 mcg tablet 100 mcg PO QAM #30 tabs 08/06/24 sulfamethoxazole 800 1 tab PO Q12H #20 tabs 09/04/24 mg-trimethoprim 160 mg tablet (Bactrim DS) Results & Data (ED) Vital Signs Vital Signs - 24 hr 09/06/24 17:14 09/06/24 17:38 09/06/24 17:46 Temperature 36.4 C L Temperature Source Oral Pulse Rate 82 79 79 Pulse Rate [Apical] Pulse Rhythm [Apical] Pulse Strength [Apical] Respiratory Rate 16 16 Respiratory Effort / Characteristics Non-Labored Spontaneous Respiratory Depth Normal Respiratory Pattern Blood Pressure 130/58 L Blood Pressure [Left Arm] Blood Pressure Mean 82 Blood Pressure Mean [Left Arm] Blood Pressure Position Sitting Pulse Oximetry 96 Oxygen Delivery Method Room Air Room Air Sepsis Recent Fever Within 48 Hours No Sepsis New/Unexplained Change in Mental Status N/A Sepsis Action Taken by Nursing No Action Required 09/06/24 19:00 09/06/24 19:12 09/06/24 19:31 Temperature Temperature Source Pulse Rate 78 77 Pulse Rate [Apical] 92 H Pulse Rhythm [Apical] Regular Pulse Strength [Apical] Normal Respiratory Rate 16 20 19 Respiratory Effort / Characteristics Non-Labored Spontaneous Respiratory Depth Normal Respiratory Pattern Regular Blood Pressure 104/71 112/66 Blood Pressure [Left Arm] 123/85 Blood Pressure Mean 82 72 Blood Pressure Mean [Left Arm] 97 Blood Pressure Position Pulse Oximetry 98 97 94 Oxygen Delivery Method Room Air Sepsis Recent Fever Within 48 Hours Sepsis New/Unexplained Change in Mental Status Sepsis Action Taken by Nursing Laboratory Data 09/06/24 17:36 09/06/24 17:36 Lab Results 09/06/24 09/06/24 Range/Units 17:30 17:36 WBC 12.64 H (4.8-10.8) K/ul RBC 4.02 L (4.20-5.40) M/uL Hgb 11.7 L (12.0-16.0) g/dl Hct 35.4 L (37.0-47.0) % MCV 88.1 (80.0-100.0) fL MCH 29.1 (25.0-34.0) pg MCHC 33.1 (32.0-36.0) g/dL RDW Std Deviation 46.4 H (36.4-46.3) fL RDW Coeff of [place] 14.3 (11.5-14.5) % Plt Count 49 L (130-400) K/uL MPV 12.0 (9.4-12.4) fL Immature Gran % (Auto) 0.9 % Neut % (Auto) 85.5 % Lymph % (Auto) 5.1 % [place] % (Auto) 5.4 % Eos % (Auto) 2.6 % Baso % (Auto) 0.5 % Neut # (Auto) 10.82 H (1.40-6.50) K/uL Lymph # (Auto) 0.64 L (1.20-3.40) K/uL [place] # (Auto) 0.68 H (0.11-0.59) K/uL Eos # (Auto) 0.33 (0.00-0.50) K/uL Baso # (Auto) 0.06 (0.00-0.20) K/uL Immature Gran # (Auto) 0.11 (0.01-0.20) K/uL Platelet Estimate Decreased L (Normal) Sodium 132 L (136-145) mmol/L Potassium 3.7 (3.5-5.1) mmol/L Chloride 96 L (98-107) mmol/L Carbon Dioxide 24 (21-32) mmol/L Anion Gap 12 H (3-11) BUN 53 H (6-23) mg/dl Creatinine 3.51 H (0.6-1.2) mg/dl Est Cr Clr Drug Dosing Not Reportable eGFR 13.52 BUN/Creatinine Ratio 15.1 (10-20) Glucose 188 H (70-99(Fasting)) mg/dl Calcium 8.8 (8.6-10.3) mg/dl Total Bilirubin 1.6 H (0.2-1.0) mg/dl AST 24 (13-39) U/L ALT 20 (7-52) U/L Alkaline Phosphatase 136 H (34-104) U/L Troponin I High Sens 36.3 H (0-14) pg/ml Total Protein 6.8 (6.0-8.3) gm/dl Albumin 3.0 L (3.4-5.0) gm/dl Globulin 3.8 (2.5-4.0) gm/dl Albumin/Globulin Ratio 0.8 L (0.9-2) Lipase 37 (11-82) U/L Urine Color [place] Urine Appearance Turbid A (Clear) Urine pH 5.0 (4.5-7.5) Ur Specific [place] 1.033 H (1.000-1.030) Urine Protein 1+ H (Negative) Urine Glucose (UA) Negative (Negative) Urine Ketones Trace H (Negative) Urine Blood 3+ H (Negative) Urine Nitrite Positive A (Negative) Urine Bilirubin 2+ H (Negative) Urine Urobilinogen Negative (Negative) Ur Leukocyte Esterase 3+ H (Negative) Urine WBC (Auto) >50 H (0-5) /hpf Urine RBC (Auto) >20 H (0-2) /hpf U Hyaline Cast (Auto) >20 H (0-2) /lpf U Epithel Cells (Auto) 11-20 H (0-2) /hpf Urine Bacteria (Auto) 2+ H (None Seen) Urine Comment Administered Medications Docusate Sodium (Docusate Sodium 100 Mg Cap) 100 mg PO BID PRN PRN Reason: Constipation Stop: 10/06/24 21:46 Last Admin: 09/06/24 22:42 Dose: 100 mg Documented By: LAMBERTO Lactated Ringer's (Lr) 1,000 mls @ 100 mls/hr IV .Q10H [facility] Stop: 09/07/24 17:46 Last Admin: 09/06/24 22:56 Dose: 100 mls/hr Documented By: LAMBERTO Insulin Aspart (Insulin Aspart Per Unit Charge) 0 units SC ACHS [facility] Stop: 10/06/24 21:46 Last Admin: 09/06/24 22:43 Dose: 1 units Documented By: LAMBERTO Co-signed By: NIC Insulin Glargine (Lantus Per Unit Charge) 5 units SQ BID [facility] Stop: 10/06/24 21:46 Last Admin: 09/06/24 22:42 Dose: 5 units Documented By: LAMBERTO Co-signed By: NIC Ondansetron HCl (Ondansetron Inj 2 Mg/Ml 2 Ml Vial) 4 mg IV Q6H PRN PRN Reason: Nausea And Vomiting Stop: 10/06/24 21:46 Last Admin: 09/06/24 22:52 Dose: 4 mg Documented By: LAMBERTO Pantoprazole Sodium (Pantoprazole 40 Mg Tab) 40 mg PO BID [facility] Stop: 10/06/24 21:46 Last Admin: 09/06/24 22:18 Dose: 40 mg Documented By: LAMBERTO Polyethylene Glycol (Polyethylene (Miralax) 17 Gm Pack) 17 gm PO DAILY PRN PRN Reason: Constipation Stop: 10/06/24 21:46 Last Admin: 09/06/24 22:42 Dose: 17 gm Documented By: LAMBERTO Venlafaxine HCl (Venlafaxine Hcl Xr 150 Mg Capxr) 150 mg PO QPM [facility] Stop: 10/06/24 21:46 Last Admin: 09/06/24 22:19 Dose: 150 mg Documented By: LAMBERTO Discontinued Medications Ceftriaxone Sodium (Rocephin) 2,000 mg in 50 mls @ 100 mls/hr IV NOW STA Stop: 09/06/24 19:11 Last Infusion: 09/06/24 19:49 Dose: Infused Documented By: Admin: 09/06/24 18:48 Dose: 100 mls/hr Documented By: STARLA Sodium Chloride (Nss) 1,000 mls @ 999 mls/hr IV .Q1H1M ONE Stop: 09/06/24 19:42 Last Infusion: 09/06/24 21:12 Dose: Infused Documented By: Admin: 09/06/24 18:48 Dose: 999 mls/hr Documented By: STARLA Imaging Data Radiologist's Impression: Chest X-Ray 09/06/24 18:09 EXAM: XR chest 1V portable CLINICAL HISTORY: Shortness of breath, upper abd pain TECHNIQUE: An X-ray image of the chest is obtained in AP projection. COMPARISON: 04/07/2024 . FINDINGS: Pulmonary Parenchyma: Prominent bilateral bronchovascular markings at both hilar regions and lower lung zones. No evidence of pleural effusion or pleural thickening. Heart and Mediastinum: Increased cardiothoracic ratio. Bony Thorax: Bony thorax appears intact without fractures or deformities. Sternotomy metallic sutures. Soft Tissues: Soft tissues overlying the chest wall are unremarkable. IMPRESSION: 1. Prominent bilateral bronchovascular markings at both hilar regions and lower lung zones. likely congestion. Interval new finding 2. Cardiomegaly. Electronically signed by Jb Bauer 09-06-2024 7:53 PM Discharge Plan Visit Data Chief Complaint: Abdominal Pain Stated Complaint: ABD PAIN ED Provider: Daniel Wolfe Discharge Problem: GERARDO (acute kidney injury), Acute pyelonephritis, Elevated troponin, Abnormal blood electrolyte level Patient Disposition: Admitted As Inpatient Condition: Fair Discharge Instructions Interventions: ED Discharge Assessment Last Done: 09/06/24 21:30
[2024-09-06 20:28] LABS: Troponin I High Sensitivity 32.9 pg/ml (0-14)
[2024-09-06] MEDS ORDERED: GLUCAGON FOR INJ 1 MG VIAL SQ PRN (21:47)
[2024-09-06] MEDS ORDERED: GLUCOSE 10 TAB/TUBE PO PRN (21:47)
[2024-09-06] MEDS ORDERED: GLUCOSE 40% GEL 15 GM TUBE PO PRN (21:47)
[2024-09-06] MEDS ORDERED: CARBOHYDRATES FOR HYPOGLYCEMIA PO PRN (21:47)
[2024-09-06] MEDS ORDERED: DEXTROSE 50% 50 ML SYRINGE IV PRN (21:47)
[2024-09-06] MEDS: PANTOprazole 40 MG TAB PO SCH (22:18)
[2024-09-06] MEDS: VENLAFAXINE HCL XR 150 MG CAPXR PO SCH (22:19)
[2024-09-06] MEDS: DOCUSATE SODIUM 100 MG CAP PO PRN (22:42)
[2024-09-06] MEDS: POLYETHYLENE (MIRALAX) 17 GM PACK PO PRN (22:42)
[2024-09-06] MEDS: LANTUS PER UNIT CHARGE SQ SCH (22:42)
[2024-09-06] MEDS: INSULIN ASPART PER UNIT CHARGE SC SCH (22:43)
[2024-09-06] MEDS: ONDANSETRON INJ 2 MG/ML 2 ML VIAL IV PRN (22:52)
[2024-09-06] MEDS: LACTATED RINGER'S 1,000 ML IV SCH (22:56)
[2024-09-06 23:24] LABS: INR 1.2 (0.9-1.1)
--- NOTE | 2024-09-07 01:35 | Ultrasound Report ---
Exam(s): US LIVER EXAM: US Abdomen Limited, Right Upper Quadrant CLINICAL HISTORY: Reason for exam: Abnormal LFTs. TECHNIQUE: Real-time ultrasound of the right upper quadrant with image documentation. COMPARISON: Ultrasound liver on 09/03/2024 FINDINGS: Liver: Liver measures 17.8 cm. Nodular contour of the liver suggestive of cirrhosis. No intrahepatic bile duct dilation. Gallbladder: Cholelithiasis and sludge in a mildly distended gallbladder. No gallbladder wall thickening. Trace pericholecystic fluid. Negative sonographic Bradshaw's sign. Common bile duct: Unremarkable as visualized. No stones. No dilation. Normal common bile duct measuring 6.1 mm. Pancreas: Slightly heterogeneous, but evaluation is limited by overlying bowel gas. Right kidney: No hydronephrosis or stone. Inferior vena cava: Visualized portions of the IVC are grossly unremarkable. Portal vein: Patent with normal direction of flow. Free fluid: No ascites. IMPRESSION: 1. Mild hepatomegaly. Cirrhosis. 2. Cholelithiasis and sludge in a mildly distended gallbladder. Trace pericholecystic fluid, but negative sonographic Bradshaw's sign suggests against acute cholecystitis. Electronically signed by: Dashawn Brown M.D. 09/07/24 01:34 AM
--- NOTE | 2024-09-07 04:36 | Ultrasound Report ---
Exam(s): US RENAL EXAM: US Retroperitoneal complete, Renal CLINICAL HISTORY: Reason for exam: GERARDO, assess for obstruction. TECHNIQUE: Real-time complete ultrasound of the retroperitoneum with image documentation. COMPARISON: CT abdomen/pelvis on 09/04/2024 FINDINGS: Right kidney: Unremarkable. Right kidney measures 11.0 cm in length. No hydronephrosis or stone. Left kidney: Increased color Doppler flow to the left kidney could represent pyelonephritis, but evaluation is limited on this exam. Left kidney measures 12.4 cm in length. No hydronephrosis or stone. Bladder: Mild prominence of the bladder wall may be secondary to underdistention. Bilateral ureteral jets noted. Other findings: Splenomegaly. Spleen measures 15.3 cm. IMPRESSION: Splenomegaly. No hydronephrosis or stone. Increased color Doppler flow to the left kidney could represent pyelonephritis, but evaluation is limited on this exam. Electronically signed by: Dashawn Brown M.D. 09/07/24 04:36 AM
[2024-09-07] MEDS: LEVOTHYROXINE SODIUM 100 MCG TABLET PO SCH (05:47)
[2024-09-07 06:51] LABS: Hematocrit (blood only) 31.5 % (37.0-47.0); Hemoglobin 10.3 g/dl (12.0-16.0); Mean Corpuscular Hemoglobin 28.6 pg (25.0-34.0); Mean Corpuscular Hgb Conc 32.7 g/dL (32.0-36.0); Mean Corpuscular Volume 87.5 fL (80.0-100.0); Mean Platelet Volume 11.8 fL (9.4-12.4); Platelet Count 46 K/uL (130-400); RDW Coefficient of Variation 14.2 % (11.5-14.5); RDW Standard Deviation 45.8 fL (36.4-46.3); White Blood Count 10.35 K/ul (4.8-10.8)
[2024-09-07 08:01] LABS: Albumin Level 2.8 gm/dl (3.4-5.0); BUN Creatinine Ratio 19.7 (10-20); Bilirubin Direct 0.7 mg/dl (0-0.2); Bilirubin,Total 1.1 mg/dl (0.2-1.0); Calcium 8.3 mg/dl (8.6-10.3); Total Protein 5.9 gm/dl (6.0-8.3)
--- NOTE | 2024-09-07 08:58 | Hospitalist Progress Note ---
Date of Service September 07, 2024 Assessment & Plan (1) Acute pyelonephritis: (2) GERARDO (acute kidney injury): (3) Liver cirrhosis: (4) CAD (coronary artery disease): (5) Type 2 diabetes mellitus: Plan 69-year-old female with multiple medical comorbidities as above recently diagnosed with acute pyelonephritis started on Bactrim therapy returns to the ER with worsening nausea, weakness, fatigue and p.o. intolerance. Patient with worsening leukocytosis WBC now = 12.64 which is increased from 7.8. Worsening thrombocytopenia. Platelets = 49, decreased from 143. GERARDO with BUN = 53, increased from 15 and creatinine = 3.51, increased from 0.93. Patient is afebrile and hemodynamically stable. Nontoxic in appearance. #Acute pyelonephritispatient initially presented to the ER on 09/04 with symptoms of suprapubic pain and left flank pain. She was diagnosed with acute pyelonephritis and started on Bactrim. Urine cultures positive for Enterobacter cloacae - discussed with clinical pharm - not reliably sensitive to CTX and recommended changing to cefepime ordered cefepime Tylenol as needed for pain or fever #GERARDO on CKD-3 triggered by infection, volume depletion, ibuprofen, lisinopril, background of cirrhosis. FeNa 1.1% which is intermediate Cont musa monitor UOP - oliguric RODRÍGUEZ - no obstruction, c/w L pyelo FeNa indeterminate CK normal, no rhabdo - bactrim stopped, ibuprofen stopped, lisinopril held - start albumin 25g IV q8h x 6 doses, GERARDO with cirrhosis - AM CMP mag #MASH cirrhosis with portal hypertension in mild decompensation - INR/bili elevated above baseline, worsened thrombocytopenia and hypoalbuminemia, GERARDO - caused by infection - as above, stop bactrim - supportive care. Labs improved - prevent constipation - miralax daily, no evidence of HE - gb sludge and cholelithiasis without evidence of acute cholecystitis #Coronary artery disease no chest pain. Mild troponin elevation 36, 32. No evidence of ACS. May be impaired clearance because of significant renal dysfunction. Continue aspirin 81 mg p.o. daily Resume atorvastatin Hold lisinopril in setting of GERARDO #Hypertensionblood pressure at goal Continue to monitor Hold lisinopril in setting of GERARDO #Diabeteslast hemoglobin A1c = 8.8 on 09/27/2023 patient is on Lantus 20 units daily decreased Lantus in setting of GERARDO --cont basal-bolus insulin --BG at goal #GERD Continue Protonix 40 mg p.o. twice daily DVT ppx - SQ heparin Admission and Anticipated Discharge Date Admission Date: September 06, 2024 Subjective feeling about the same today. no nausea or vomiting, flank or abdominal pain Physical Exam 2 Physical Exam: Last 24h vitals reviewed GEN: lying in bed HEENT: pupils equal, sclerae anicteric, moist MM RESP: normal WOB, CTAB CV: reg no mrg ABD: soft/nt/nd +BT : musa with mary kate yellow urine, no blood SKIN: warm and dry, no generalized rashes NEURO: AOx person, place, and situation. Face symmetric, speech normal, moves 4 ext spontaneously and equally, no asterixis Results & Data Results & Data Vital Signs (Past 12 Hours) Vital Signs Temp Pulse Pulse Pulse Resp BP BP 09/07/24 07:56 36.7 C 64 20 109/68 09/07/24 03:48 79 100/63 09/07/24 02:42 36.8 C 81 16 94/57 L 09/06/24 21:54 78 09/06/24 21:40 09/06/24 21:40 36.6 C 82 18 120/74 09/06/24 21:12 78 14 09/06/24 21:06 79 13 126/64 Pulse Ox O2 Del Method 09/07/24 07:56 94 Room Air 09/07/24 03:48 94 Room Air 09/07/24 02:42 92 Room Air 09/06/24 21:54 09/06/24 21:40 Room Air 09/06/24 21:40 98 Room Air 09/06/24 21:12 95 09/06/24 21:06 95 Laboratory Results 09/07/24 05:51 09/07/24 05:51 FeNa 1.1% bili 1.1 alb 2.8 INR 1.[address] abdomen/pelvis from 09/04 ED visit - L pyelo, cirrhosis, cholelithiasis PG Care Time/CCT Total # of Minutes Spent Total Time Spent with Patient: Total time spent is greater than 50% in coordination of care (as documented) at patient's floor/unit and/or counseling patient: Coding Level of Care Code 04581 SUB INP/OBS CARE MIN Diagnoses Acute pyelonephritis N10 GERARDO (acute kidney injury) N17.9 Liver cirrhosis K74.69 Hepatic cirrhosis type: other cirrhosis CAD (coronary artery disease) I25.10 Type 2 diabetes mellitus E11.9 (3) Liver cirrhosis Hepatic cirrhosis type: other cirrhosis Qualified Code(s): K74.69 - Other cirrhosis of liver
[2024-09-07] MEDS: POLYETHYLENE (MIRALAX) 17 GM PACK PO SCH (09:19)
[2024-09-07] MEDS: ASPIRIN 81 MG ECTAB PO SCH (09:20)
[2024-09-07] MEDS: ALBUMIN 25% 25 GM/100 ML VIAL IV SCH (10:12)
--- NOTE | 2024-09-07 14:00 | Electrocardiogram Report ---
Test Reason : Blood Pressure : */* mmHG Vent. Rate : 79 BPM Atrial Rate : 79 BPM P-R Int : 140 ms QRS Dur : 92 ms QT Int : 418 ms P-R-T Axes : 8 38 23 degrees QTcB Int : 479 ms Normal sinus rhythm Normal ECG When compared with ECG of 08-May-2023 07:40, Minimal criteria for Inferior infarct are no longer Present Confirmed by Janusz Sosa ([id number]) on 09/07/2024 2:00:28 PM Referred By: REFERRED SELF Confirmed By: Janusz Sosa
[2024-09-07] MEDS: CEFEPIME 2000MG 2,000 MG/20 ML SYR IV ONE (16:20)
[2024-09-07] MEDS ORDERED: cefTRIAXone SODIUM 1,000 MG/50 ML BAG IV SCH (18:00)
[2024-09-07] MEDS: ATORVASTATIN 20 MG TAB PO SCH (21:00)
[2024-09-07] MEDS: HEPARIN SOD 5,000 UNIT/0.5 ML VIAL SQ SCH (21:00)
[2024-09-07 23:47] LABS: Magnesium 1.7 mg/dl (1.7-2.4)
[2024-09-08] MEDS ORDERED: CEFEPIME 1000MG 1,000 MG/10 ML SYR IV SCH (03:00)
[2024-09-08 03:02] LABS: Hemoglobin 9.7 g/dl (12.0-16.0); Mean Corpuscular Hemoglobin 29.3 pg (25.0-34.0); Mean Corpuscular Hgb Conc 33.4 g/dL (32.0-36.0); Mean Corpuscular Volume 87.6 fL (80.0-100.0); Mean Platelet Volume 11.7 fL (9.4-12.4); Platelet Count 47 K/uL (130-400); RDW Coefficient of Variation 14.4 % (11.5-14.5); RDW Standard Deviation 46.1 fL (36.4-46.3); Red Blood Count 3.31 M/uL (4.20-5.40)
[2024-09-08 03:06] LABS: INR 1.2 (0.9-1.1); Prothrombin Time 12.6 Seconds (9.0-12.0)
[2024-09-08 03:15] LABS: Albumin Globulin Ratio 1.3 (0.9-2); Albumin Level 3.6 gm/dl (3.4-5.0); BUN Creatinine Ratio 23.9 (10-20); Bilirubin,Total 1.1 mg/dl (0.2-1.0); Calcium 8.6 mg/dl (8.6-10.3); Creatinine Clr Calc Pharmacy 30.2 ml/min; Globulin 2.7 gm/dl (2.5-4.0); Magnesium 1.9 mg/dl (1.7-2.4); Total Protein 6.3 gm/dl (6.0-8.3)
[2024-09-08] MEDS: CEFEPIME 1000MG 1,000 MG/10 ML SYR IV SCH (05:27)
[2024-09-08] MEDS ORDERED: POLYETHYLENE (MIRALAX) 17 GM PACK PO PRN (13:00)
--- NOTE | 2024-09-08 17:57 | Hospitalist Progress Note ---
Date of Service September 08, 2024 Assessment & Plan (1) Acute pyelonephritis: (2) GERARDO (acute kidney injury): (3) Liver cirrhosis: (4) CAD (coronary artery disease): (5) Type 2 diabetes mellitus: Plan 69-year-old female with multiple medical comorbidities as above recently diagnosed with acute pyelonephritis started on Bactrim therapy returns to the ER with worsening nausea, weakness, fatigue and p.o. intolerance. she had worsening leukocytosis and worsening thrombocytopenia, increased bilirubin GERARDO with BUN = 53, increased from 15 and creatinine = 3.51, increased from 0.93. #Acute pyelonephritispatient initially presented to the ER on 09/04 with symptoms of suprapubic pain and left flank pain. She was diagnosed with acute pyelonephritis and started on Bactrim in the outpatient setting. Urine cultures positive for Enterobacter cloacae continue cefepime. probably Cipro for discharge, according to pharmacist the strain requires cephalosporin resistance quickly thus was changed from ceftriaxone to cefepime Tylenol as needed for pain or fever #GERARDO on CKD-3 triggered by infection, volume depletion, ibuprofen, lisinopril, background of cirrhosis. FeNa 1.1% which is intermediate much improved, discontinue Cadena RODRÍGUEZ - no obstruction, c/w L pyelo FeNa indeterminate CK normal, no rhabdo - bactrim stopped, ibuprofen stopped, lisinopril held - albumin 25g IV q8h x 6 doses, GERARDO with cirrhosis - last dose is tonight - creatinine improved to 1.63, anticipate she will be okay for discharge tomorrow morning - a.m. 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 LFTs returning to baseline, bilirubin normal at 1.1 and INR improved to 1.2 - no evidence of HE - gb sludge and cholelithiasis without evidence of acute cholecystitis #Coronary artery disease no chest pain. Mild troponin elevation 36, 32. No evidence of ACS. May be impaired clearance because of significant renal dysfunction. Continue aspirin 81 mg p.o. daily atorvastatin Hold lisinopril in setting of GERARDO #Hypertensionblood pressure at goal Continue to monitor Hold lisinopril in setting of GERARDO #Diabeteslast hemoglobin A1c = 8.8 on 09/27/2023 patient is on Lantus 20 units daily decreased Lantus in setting of GERARDO --cont basal-bolus insulin --BG at goal #GERD Continue Protonix 40 mg p.o. twice daily DVT ppx - SQ heparin I updated her at bedside, she is a little bit weaker than normal and PT OT is pending, anticipate she will be able to discharge home tomorrow morning Admission and Anticipated Discharge Date Admission Date: September 06, 2024 Subjective she has improved a lot since 2 days ago, feels well no longer fatigued, no more left flank pain Physical Exam 2 Physical Exam: Last 24h vitals reviewed GEN: lying in bed awake and visiting with looks much better, color is much better otherwise physical exam unchanged 09/08 HEENT: pupils equal, sclerae anicteric, moist MM RESP: normal WOB, CTAB CV: reg no mrg ABD: soft/nt/nd +BT protuberant SKIN: warm and dry, no generalized rashes NEURO: AOx person, place, and situation. Face symmetric, speech normal, moves 4 ext spontaneously and equally, no asterixis Results & Data Results & Data Vital Signs (Past 12 Hours) Vital Signs Temp Pulse Pulse Resp BP Pulse Ox O2 Del Method 09/08/24 15:12 36.7 C 79 17 134/82 90 Room Air 09/08/24 13:04 80 09/08/24 11:31 36.8 C 78 17 143/83 H 89 L Room Air 09/08/24 07:52 36.7 C 75 18 145/79 H 94 Nasal Cannula 09/08/24 07:35 Room Air O2 Flow Rate 09/08/24 15:12 09/08/24 13:04 09/08/24 11:31 09/08/24 07:52 2 09/08/24 07:35 Laboratory Results 09/08/24 02:32 09/08/24 02:32 PG Care Time/CCT Total # of Minutes Spent Total Time Spent with Patient: Total time spent is greater than 50% in coordination of care (as documented) at patient's floor/unit and/or counseling patient: Coding Level of Care Code 43434 SUB INP/OBS CARE 2/35MIN Diagnoses Acute pyelonephritis N10 GERARDO (acute kidney injury) N17.9 Liver cirrhosis K74.69 Hepatic cirrhosis type: other cirrhosis CAD (coronary artery disease) I25.10 Type 2 diabetes mellitus E11.9 (3) Liver cirrhosis Hepatic cirrhosis type: other cirrhosis Qualified Code(s): K74.69 - Other cirrhosis of liver
[2024-09-09 07:07] LABS: Hematocrit (blood only) 30.1 % (37.0-47.0); Hemoglobin 9.9 g/dl (12.0-16.0); Mean Corpuscular Hgb Conc 32.9 g/dL (32.0-36.0); Mean Corpuscular Volume 88.3 fL (80.0-100.0); Mean Platelet Volume 11.9 fL (9.4-12.4); Nucleated RBC # (auto) 0.02 K/uL (0.00-0.12); Nucleated RBC % (auto) 0.2 %; Platelet Count 61 K/uL (130-400); RDW Coefficient of Variation 14.5 % (11.5-14.5); RDW Standard Deviation 46.5 fL (36.4-46.3); Red Blood Count 3.41 M/uL (4.20-5.40); White Blood Count 8.06 K/ul (4.8-10.8)
[2024-09-09 07:15] LABS: INR 1.2 (0.9-1.1); Prothrombin Time 13.2 Seconds (9.0-12.0)
[2024-09-09 07:24] LABS: Albumin Globulin Ratio 1.4 (0.9-2); Albumin Level 3.9 gm/dl (3.4-5.0); BUN Creatinine Ratio 25.4 (10-20); Bilirubin,Total 1.4 mg/dl (0.2-1.0); Calcium 8.6 mg/dl (8.6-10.3); Creatinine Clr Calc Pharmacy 37.8 ml/min; Globulin 2.8 gm/dl (2.5-4.0); Potassium 4.2 mmol/L (3.5-5.1); Total Protein 6.7 gm/dl (6.0-8.3)
[2024-09-09] MEDS: ADVANCED PROBIOTIC 625 MG CAPSULE PO SCH (08:27)
[2024-09-09 11:07] VITALS: PULSE 78; RESP 18; TEMP 98.8; O2SAT 90
[2024-09-09 12:58] VITALS: BP 128/75
--- NOTE | 2024-09-09 16:32 | Discharge Summary ---
Discharge Summary Date of Service September 09, 2024 Principal Dx & Hospital Course #1 = Principal Diagnosis (1) Acute pyelonephritis: (2) GERARDO (acute kidney injury): (3) Liver cirrhosis: (4) CAD (coronary artery disease): (5) Type 2 diabetes mellitus: Plan 69-year-old female with multiple medical comorbidities as above who was recently diagnosed with acute pyelonephritis and started on Bactrim therapy. She returned to the ER with worsening nausea, weakness, fatigue and p.o. intolerance. On presentation, she had worsening leukocytosis and worsening thrombocytopenia, increased bilirubin, and an GERARDO. #Acute pyelonephritis patient initially presented to the ER on 09/04 with symptoms of suprapubic pain and left flank pain. She was diagnosed with acute pyelonephritis and started on Bactrim in the outpatient setting. Urine cultures positive for Enterobacter cloacae Initially treated with Ceftriaxone that was then changed to cefepime after discussion with pharmacist that the strain acquires cephalosporin resistance quickly thus was changed from ceftriaxone to cefepime - Discharged on Cipro 500 mg BID through 09/15 AM Tylenol as needed for pain or fever #GERARDO on CKD-3 triggered by infection, volume depletion, ibuprofen, lisinopril, background of cirrhosis. FeNa 1.1% which is intermediate - GERARDO on admission with BUN = 53, increased from 15 and creatinine = 3.51, increased from 0.93. Now much improved and discontinued Cadena RODRÍGUEZ - no obstruction, c/w L pyelo FeNa indeterminate CK normal, no rhabdo - bactrim stopped, ibuprofen stopped, lisinopril held. - albumin 25g IV q8h x 6 doses for GERARDO with cirrhosis - creatinine improved to 1.30 on day of discharge - Recommended holding lisinopril until PCP follow-up appointment and review of outpatient BMP scheduled for 09/12 #MESA cirrhosis with portal hypertension - in mild decompensation - INR/bili elevated above baseline, worsened thrombocytopenia and hypoalbuminemia, GERARDO - caused by infection - as above, stop bactrim - supportive care. LFTs returning to baseline, bilirubin improved 1.4 and INR improved to 1.2 - no evidence of HE - gb sludge and cholelithiasis without evidence of acute cholecystitis #Coronary artery disease no chest pain. Mild troponin elevation 36, 32. No evidence of ACS. May be impaired clearance because of significant renal dysfunction. Suspect demand ischemia Continue aspirin 81 mg p.o. daily, atorvastatin 20 mg QPM Hold lisinopril in setting of GERARDO #Hypertension blood pressure at goal Continue to monitor Hold lisinopril in setting of GERARDO #Diabetes last hemoglobin A1c = 8.8 on 09/27/2023 patient is on Lantus 20 units daily - cont basal-bolus insulin - BG at goal #GERD Continue Protonix 40 mg p.o. twice daily RN reported patient is independent in room DVT ppx - SQ heparin Dispo: Discharged home 09/09 Notes For Next Care Provider Please follow-up on BMP results scheduled for 09/12 Please instruct patient on when to resume taking Lisinopril vs starting different medication Medication Changes From Visit Held lisinopril Cipro 500 mg BID through 09/15 AM Admission HPI Per Admitting Provider Noy Garcia is a 69-year-old female with history of coronary artery disease status post CABG, status post aortic valve replacement, asthma, MESA Cirrhosis with esophageal varices, diabetes, hyperlipidemia presenting with ongoing nausea. Patient initially presented to [facility] emergency room on 09/04/2024 with left flank pain and lower abdominal pain that started on the day of presentation. Patient with UA suggestive of infection. CT of the abdomen pelvis revealed left pyelonephritis and ureteritis (read as interval progression when compared to CT from 05/08/2023). patient prescribed Bactrim DS twice daily x 10 days and was discharged home. She reports she has been taking this medication but since returning home has been experiencing progressive nausea with one episode of nonbloody/nonbilious emesis on 09/04 evening. Also with weakness and fatigue as well as subjective fevers and clamminess. Patient has not been able to eat much more than a few bites of food over the last 2 days. She also has new mid abdominal pain. She denies chest pain, cough, shortness of breath, diarrhea. She has been taking ibuprofen intermittently for discomfort. No additional complaints at this time In the emergency room, patient is afebrile and hemodynamically stable. Multiple laboratory abnormalities discussed below ER course: Ceftriaxone 2 g IV Normal saline 1 L IV Discharge Exam General: No acute distress, nondiaphoretic, well-developed, well-nourished. Cardiac: Regular rate and rhythm without murmurs gallops or rubs. Pulm: Clear to auscultation bilaterally without wheezes, rales or rhonchi. Normal respiratory effort. 90% on room air. Abdominal: Soft, nontender, nondistended. Bowel sounds present. Neuro: A&O x3. No focal neurological deficits. Discharge Plan Discharge Items Patient Disposition: Home - Self-Care Reason For Visit: GERARDO,PYELONEPHRITIS Discharge Diagnosis: Pyelonephritis, GERARDO Condition on Discharge: Fair Activity: Resume your previous activity Non-emergency contact: Primary Care Provider Call non-emergency contact if: you have any medication questions and your symptoms worsen Follow-up/Referrals: Cirilo Page CRNP [Primary Care Provider] - 09/16/24 8:20 am () Diet: Carb Consistent or DM2 Ambulatory Orders: Basic Metabolic Panel (Routine) Timeframe: 3 Days Location: Determined by Patient Ordered By: Nia Haley Attending Provider Instructions: Noy, You were admitted to the hospital with pyelonephritis and an acute kidney injury (GERARDO). Pyelonephritis is a kidney infection when a UTI moves from your bladder to your kidneys. You are treated in the hospital with IV antibiotics and will continue taking oral antibiotics at home to complete your course. Your kidney function has greatly improved throughout your hospitalization, though not completely back to your baseline yet. Upon discharge from the hospital: * Take ciprofloxacin (oral antibiotic) twice daily through 09/15 morning dose. You can take your evening dose tonight, 09/09. This is to complete treatment for your pyelonephritis. It is important to complete this course of ant ibiotics even if you feel better. Not finishing your antibiotics can result in the infection returning in/or can make future infections harder to treat. I recommend you take this with food to prevent any stomach upset. * Hold taking your lisinopril medication for another 1-2 weeks until you see your PCP. At your PCP follow-up appointment, your PCP can determine when to r esume taking this medication. * Get blood work done on Tuesday 09/12 to monitor your kidney function. A lab slip has been printed with your discharge paperwork. * Continue your other home medications as prescribed. Please return to the hospital if you experience any of the following: Decreased urine output or trouble urinating, severe lower back/flank pain, fever of 100.5 F or higher, shaking chills, persistent vomiting, blood in your urine, dark- colored or foul-smelling urine, chest pain, shortness of breath, passing out, confusion, or any other symptoms concerning for you. It was a pleasure taking care of you while you were in the hospital! Pending Studies at Discharge: No Stand-Alone Forms: My [facility], Smoking Cessation Medications and DC Order Prescriptions: New ciprofloxacin HCl 500 mg tablet 500 mg PO BID Qty: 12 0RF Continued venlafaxine 150 mg capsule,extended release 24hr 150 mg PO QPM Qty: 90 3RF atorvastatin 20 mg tablet 20 mg PO QPM Qty: 90 2RF levothyroxine 100 mcg tablet 100 mcg PO QAM Qty: 30 2RF Rx Instructions: take with water on empty stomach aspirin [Adult Low Dose Aspirin] 81 mg tablet,delayed release (DR/EC) 81 mg PO QAM diclofenac sodium [Arthritis Pain (diclofenac)] 1 % gel 2 g topical QID PRN (Reason: pain (scale score 4-6)) Qty: 100 0RF Rx Instructions: apply to affected area up to 4 times a day insulin glargine [Lantus Solostar U-100 Insulin] 100 unit/mL (3 mL) insulin pen 20 unit subcut QPM Qty: 3 3RF ferrous sulfate 325 mg (65 mg iron) tablet 325 mg PO QPM pantoprazole 40 mg tablet,delayed release (DR/EC) 40 mg PO BID Qty: 60 5RF Ozempic 0.25 mg or 0.5 mg (2 mg/3 mL) pen injector 0.25 mg subcut WK Rx Instructions: 0.25 mg subcutaneously once every 7 days at any time of day. After 4 weeks increase to 0.5 mg subcutaneously once weekly. Tuesdays Held lisinopril 5 mg tablet 5 mg PO QPM Qty: 90 1RF Hold Instructions: Provider's Order furosemide 20 mg tablet 20 mg PO DAILY PRN (Reason: weight gain) Qty: 30 2RF Hold Instructions: Provider's Order Discontinued sulfamethoxazole-trimethoprim [Bactrim DS] 800-160 mg tablet 1 tab PO Q12H Qty: 20 0RF Rx Instructions: One tablet every 12 hours Discharge Orders: Discharge Order (Routine); Ordered 09/09/24 Ordered By: Nia Young/Other Patient Handouts: Ciprofloxacin Oral Tablet, Urinary Tract Infections in Women, Kidney Infec Dc Admission Data Admit Date/Time: 09/06/24 19:47 Attending Provider: Vanessa Snyder Admit Provider: Melissa Barrera Primary Care Provider: Cirilo Page Other Providers: Melissa Barrera Other Interventions: Discharge Summary Assessment (RN) Last Done: 09/09/24 12:57 Hospital Stay Data Consultations 09/06/24 19:44 ED Decision to Admit Stat Diagnostic Imagining Performed Chest X-Ray 09/06/24 18:09 EXAM: XR chest 1V portable CLINICAL HISTORY: Shortness of breath, upper abd pain TECHNIQUE: An X-ray image of the chest is obtained in AP projection. COMPARISON: 04/07/2024 . FINDINGS: Pulmonary Parenchyma: Prominent bilateral bronchovascular markings at both hilar regions and lower lung zones. No evidence of pleural effusion or pleural thickening. Heart and Mediastinum: Increased cardiothoracic ratio. Bony Thorax: Bony thorax appears intact without fractures or deformities. Sternotomy metallic sutures. Soft Tissues: Soft tissues overlying the chest wall are unremarkable. IMPRESSION: 1. Prominent bilateral bronchovascular markings at both hilar regions and lower lung zones. likely congestion. Interval new finding 2. Cardiomegaly. Electronically signed by Jb Bauer 09-06-2024 7:53 PM Liver Ultrasound 09/06/24 19:47 Exam(s): US LIVER EXAM: US Abdomen Limited, Right Upper Quadrant CLINICAL HISTORY: Reason for exam: Abnormal LFTs. TECHNIQUE: Real-time ultrasound of the right upper quadrant with image documentation. COMPARISON: Ultrasound liver on 09/03/2024 FINDINGS: Liver: Liver measures 17.8 cm. Nodular contour of the liver suggestive of cirrhosis. No intrahepatic bile duct dilation. Gallbladder: Cholelithiasis and sludge in a mildly distended gallbladder. No gallbladder wall thickening. Trace pericholecystic fluid. Negative sonographic Bradshaw's sign. Common bile duct: Unremarkable as visualized. No stones. No dilation. Normal common bile duct measuring 6.1 mm. Pancreas: Slightly heterogeneous, but evaluation is limited by overlying bowel gas. Right kidney: No hydronephrosis or stone. Inferior vena cava: Visualized portions of the IVC are grossly unremarkable. Portal vein: Patent with normal direction of flow. Free fluid: No ascites. IMPRESSION: 1. Mild hepatomegaly. Cirrhosis. 2. Cholelithiasis and sludge in a mildly distended gallbladder. Trace pericholecystic fluid, but negative sonographic Bradshaw's sign suggests against acute cholecystitis. Electronically signed by: Dashawn Brown M.D. 09/07/24 01:34 AM Renal Ultrasound 09/06/24 19:47 Exam(s): US RENAL EXAM: US Retroperitoneal complete, Renal CLINICAL HISTORY: Reason for exam: GERARDO, assess for obstruction. TECHNIQUE: Real-time complete ultrasound of the retroperitoneum with image documentation. COMPARISON: CT abdomen/pelvis on 09/04/2024 FINDINGS: Right kidney: Unremarkable. Right kidney measures 11.0 cm in length. No hydronephrosis or stone. Left kidney: Increased color Doppler flow to the left kidney could represent pyelonephritis, but evaluation is limited on this exam. Left kidney measures 12.4 cm in length. No hydronephrosis or stone. Bladder: Mild prominence of the bladder wall may be secondary to underdistention. Bilateral ureteral jets noted. Other findings: Splenomegaly. Spleen measures 15.3 cm. IMPRESSION: Splenomegaly. No hydronephrosis or stone. Increased color Doppler flow to the left kidney could represent pyelonephritis, but evaluation is limited on this exam. Electronically signed by: Dashawn Brown M.D. 09/07/24 04:36 AM Pending Results Patient Have Any Pending Studies at Discharge: No Discharge Instructions Given to Patient (Per Discharging Provider) Noy, You were admitted to the hospital with pyelonephritis and an acute kidney injury (GERARDO). Pyelonephritis is a kidney infection when a UTI moves from your bladder to your kidneys. You are treated in the hospital with IV antibiotics and will continue taking oral antibiotics at home to complete your course. Your kidney function has greatly improved throughout your hospitalization, though not completely back to your baseline yet. Upon discharge from the hospital: * Take ciprofloxacin (oral antibiotic) twice daily through 09/15 morning dose. You can take your evening dose tonight, 09/09. This is to complete treatment for your pyelonephritis. It is important to complete this course of antibiotics even if you feel better. Not finishing your antibiotics can result in the infection returning in/or can make future infections harder to treat. I recommend you take this with food to prevent any stomach upset. * Hold taking your lisinopril medication for another 1-2 weeks until you see your PCP. At your PCP follow-up appointment, your PCP can determine when to resume taking this medication. * Get blood work done on Tuesday 09/12 to monitor your kidney function. A lab slip has been printed with your discharge paperwork. * Continue your other home medications as prescribed. Please return to the hospital if you experience any of the following: Decreased urine output or trouble urinating, severe lower back/flank pain, fever of 100.5 F or higher, shaking chills, persistent vomiting, blood in your urine, dark- colored or foul-smelling urine, chest pain, shortness of breath, passing out, confusion, or any other symptoms concerning for you. It was a pleasure taking care of you while you were in the hospital! Supervising Physician Co-Signing Physician Notes PA Supervision Note: I did not personally see or examine the patient today, but I verified all butler points of ARTIE Melton's assessment and plan with the following exceptions/additions: None Total Time Total Time Spent Total Time Spent (In Minutes): Greater than 30 minutes spent completing this discharge process including direct patient care, medication reconciliation, documentation, review of labs and irki ges, and coordination of care. Coding Level of Care Code 32938 INP/OBS DISCH >30 MIN Diagnoses Acute pyelonephritis N10 GERARDO (acute kidney injury) N17.9 Liver cirrhosis K74.69 Hepatic cirrhosis type: other cirrhosis CAD (coronary artery disease) I25.10 Type 2 diabetes mellitus E11.9
== END 2024-09-09 13:53 | disposition home or self-care (01) | DRG 690 ==
LOC: ED 17:11 → 2N 19:47 → SUATTDRO 19:47 → 2N 21:30